=== PATIENT | female | born 1955 | race Caucasian/White ===

== ENCOUNTER 2019-04-26 18:35 | Inpatient (IN) | payer MEDICARE, BC ==
[~2019-04-26] VITALS: Ht 154.9 cm; Wt 76.1 kg
[~2019-04-26 18:35] MED LIST: ALENDRONATE SOD10 MG PO; AMBIEN5 MG PO; DIOVAN160 MG PO; K-DUR20 MEQ PO; URSO250 MG PO
[2019-04-26 19:20] LABS: BASOPHILS 0.9 % (0-2); EOSINOPHILS 3.1 % (0-7); HEMATOCRIT 32.3 % (36.0-48.0); HEMOGLOBIN 10.5 g/dL (12-16); IMMATURE GRANULOCYTES 1.5 % (0-5); LYMPHOCYTES 14.6 % (15-50); MCH 30.9 pg (26.0-34.0); MCHC 32.5 g/dL (31.0-37.0); MEAN PLATELET VOLUME 10.2 fL (7.4-10.4); MONOCYTES 10.3 % (2-11); NEUTROPHILS 69.6 % (40-80); PLATELET COUNT 154 10x3/uL (130-400); RDW 18.6 % (11.5-14.5); WBC 8.8 10x3/uL (4.8-10.8)
[2019-04-26 19:31] LABS: INR 1.35 (0.85-1.17); PROTIME 16.6 SECONDS (11.6-15.0)
[2019-04-26 19:35] LABS: ANION GAP 15.2 mmol/L (8-16); CALCIUM 9.2 mg/dL (8.5-10.1); CARBON DIOXIDE 20.3 mmol/L (21.0-32.0); CREATININE - SERUM 1.1 mg/dL (0.6-1.3); POTASSIUM - SERUM 3.5 mmol/L (3.5-5.1)
[2019-04-26 19:56] LABS: ALBUMIN 1.9 g/dL (3.4-5.0); BILIRUBIN - TOTAL 4.86 mg/dL (0.2-1.3); MAGNESIUM - SERUM 1.8 mg/dL (1.8-2.4); PROTEIN - SERUM 6.4 g/dL (6.4-8.2); THYROID STIMULATING HORMONE 5.63 uIU/mL (0.36-3.74)
[2019-04-26 20:07] LABS: TROPONIN-I 0.197 ng/mL (0.000-0.060)
[2019-04-26 20:16] VITALS: BP 156/76
--- NOTE | 2019-04-26 20:34 | NUR ---
CONTACT MADE WITH [facility] TRANSFER LINE, FACE SHEET FAXED TO [phone]. [facility] TO CALL BACK WITH ACCEPTING PHYSICIAN
[2019-04-26 21:13] VITALS: BP 147/66
[2019-04-26 21:27] VITALS: BP 147/66
--- NOTE | 2019-04-26 21:34 | NUR ---
[facility] HAS DECLINED TO ACCEPT PATIENT A TRANSFER, SPOKE WITH PATIENT AND SHE AGREES TO ICU ADMISSION AT THIS FACILITY. FAMILY AT BEDSIDE, NAD NOTED.
--- NOTE | 2019-04-26 21:55 | NUR ---
PATIENT VOID 400 ML TO BSC
[2019-04-26 22:32] VITALS: BP 149/72
--- NOTE | 2019-04-26 22:45 | NUR ---
PATIENT VOID 550 ML TO BSC
[2019-04-26 22:49] LABS: BILIRUBIN NEGATIVE (NEGATIVE); GLUCOSE NEGATIVE (NEGATIVE); KETONE NEGATIVE (NEGATIVE); NITRITE NEGATIVE (NEGATIVE); UROBILINOGEN NORMAL (NORMAL)
--- NOTE | 2019-04-26 22:50 | NUR ---
PATIENT NOTIFIED BY DR. CHANG THAT THERE ARE NO MEDICAL OR ICU BEDS AND SHE WILL BE HELD IN THE ED UNTIL A BED BECOMES AVAILABLE. REASSURE THAT CONSULTING PHYSICIANS WILL SEE HER IN THE ER IN THE MORNING IF NO BED IS AVAILABLE WHEN THEY ROUND. PATIENT PROVIDED SANDWHICH BOX AND DRINK. WARM BLANKET PROVIDED AND FAMILY AT BEDSIDE.
[2019-04-26 23:08] VITALS: BP 145/70
--- NOTE | 2019-04-26 23:10 | NUR ---
PATIENT VOID 600 ML TO BSC
[2019-04-27] VITALS (7 sets, daily range): BP systolic 108–178; BP diastolic 44–89; BMI 35.6
--- NOTE | 2019-04-27 00:35 | NUR ---
PATIENT VOID 400 ML TO BSC
--- NOTE | 2019-04-27 00:47 | NUR ---
PATIENTS SPOUSE BROUGHT PATIENTS AMPICILLIN HOME INFUSION REFILL BAG TO THE NURSES STATION. PLACED IN MEDICATION FRIDGE. CHARGE NURSE NOTIFIED.
--- NOTE | 2019-04-27 02:05 | NUR ---
PATIENT VOID 400 ML TO BSC.
--- NOTE | 2019-04-27 03:38 | NUR ---
REPORT TO HOLLIE RN WHO ASSUMES CARE AT THIS TIME, PATIENT IS AWAITING INPATIENT BED ASSIGNEMENT. NAD NOTED. VSS
--- NOTE | 2019-04-27 07:15 | NUR ---
ASSUMED CARE OF PT AT THIS TIME. BEDSIDE REPORT COMPLETE. PT LAYING IN BED. NO S/S OF DISTRESS NOTED. DENIES NEEDS AT THIS TIME.
[2019-04-27] MEDS ORDERED: URSO250 MG PO (14:34)
[2019-04-27 14:35] LABS: EOSINOPHILS 3.9 % (0-7); HEMATOCRIT 30.2 % (36.0-48.0); HEMOGLOBIN 9.7 g/dL (12-16); IMMATURE GRANULOCYTES 1.1 % (0-5); LYMPHOCYTES 17.6 % (15-50); MCH 30.8 pg (26.0-34.0); MCHC 32.1 g/dL (31.0-37.0); MCV 95.9 fL (80.0-100.0); MEAN PLATELET VOLUME 10.3 fL (7.4-10.4); MONOCYTES 8.4 % (2-11); PLATELET COUNT 148 10x3/uL (130-400); RBC 3.15 10x6/uL (4.00-5.40); RDW 19.2 % (11.5-14.5); WBC 7.2 10x3/uL (4.8-10.8)
[2019-04-27 14:40] LABS: INR 1.51 (0.85-1.17)
[2019-04-27 14:49] LABS: ALBUMIN 1.7 g/dL (3.4-5.0); ANION GAP 13.8 mmol/L (8-16); BILIRUBIN - TOTAL 3.83 mg/dL (0.2-1.3); CALCIUM 8.6 mg/dL (8.5-10.1); CARBON DIOXIDE 21.4 mmol/L (21.0-32.0); CREATININE - SERUM 1.2 mg/dL (0.6-1.3); POTASSIUM - SERUM 3.2 mmol/L (3.5-5.1)
--- NOTE | 2019-04-27 15:07 | NUR ---
WHEN GOING OVER PT'S MEDICATIONS PT INFORMED THIS NURSE THAT SHE WAS TAKING VALSARTAN 160MG DAILY. ONCE VALSARTAN WAS ORDERED WENT AND GAVE PT 160MG OF VALSARTAN AND AFTER PT HAD TAKEN THE MEDICATION PT ASKED NURSE WHAT DOSE SHE RECEIVED, TOLD PT THAT I GAVE HER 160MG OF VALSARTAN. THEN PT STATED I AM SUPPOSE TO TAKE 250MG TO EQUAL A DOSE OF 750MG. INFORMED PT THAT I WOULD UPDATED IT ON HER HOME MEDICATIONS AND THEN HAVE THE DOCTOR ORDER IT. PHARMACY CALLED THIS NURSE AND WAS INFORMED THAT MAX DOSE FOR VALSARTAN DAILY IS 320MG. WENT AND ASKED PT AND AGAIN IF THEY WERE SURE SHE TOOK 750MG OF VALSARTAN AND THEN PT STATED "OH I DON'T TAKE VALSARTAN ANYMORE, I TAKE 750MG OF URSODIOL TID". WENT OVER PT'S HOME MEDICAITONS AGAIN, PT AND WERE GIVING THIS NURSE TWO DIFFERENT DOSAGES FOR THE THE URSODIOL AND NAMES OF THE MEDICAITONS PT WAS TAKING. INFORMED PT AND THAT I NEEDEED AND UPDATED MEDICATION LIST OF THE CURRENT MEDICAITONS THAT PT IS TAKING AT HOME. PT THEN STATED THAT SHE TAKES AMBIEN 5MG QHS PRN, URSODIOL 750MG TID AND POTASSIUM CHLORIDE 40MEQ PO DAILY. THEN ERUM FROM PHARMACY CALLED AND ASKED IF HAS HER HOME DOSE OF URSODIOL. ASKED PT IF SHE HAD HER URSODIOL WITH HER BECAUSE PHARMACY DOES NOT HAVE 250TAB AND PT STATED THAT SHE DOES NOT HAVE IT HERE BUT HER CAN GET IT FOR HER AND WILL START TAKING HER OWN HOME DOSE ONCE LABELED BY PHARMACY.
--- NOTE | 2019-04-27 16:34 | NUR ---
NEW BAG OF AMPICILLIN HUNG AT THIS TIME, TO INFUSE TO LT MIDLINE. PT DENIES ANY NEEDS AT THIS TIME. CALL LIGHT IN REACH,NAD NOTED,W ILL CONTINUE TO MONITOR.
--- NOTE | 2019-04-27 19:49 | NUR ---
ASSESSMENT COMPLETE, PT A&O. SITTING UP IN BED WATCHING TV. RESPERATIONS EVEN ON RA. PIV TO RIGHT HAND SL. SITE CLEAN AND DRY. LEFT ARM MIDLINE WITH WITH PTS HOME DOSE OF AMPICILLIN INFUSING. AT BED SIDE, BED LOW, CL IN REACH, PT DENIES PAIN OR NEEDS.
--- NOTE | 2019-04-28 01:42 | NUR ---
I have reviewed this patient and I concur with the Shift Assessment completed by the Licensed Practical Nurse today this shift.
[2019-04-28 04:00] VITALS: BP 144/76
--- NOTE | 2019-04-28 04:23 | NUR ---
RESTING WITH EYES CLOSED, RESPERATIONS EVEN, NO S/S DISTRESS NOTED.
[2019-04-28 06:00] LABS: BASOPHILS 0.7 % (0-2); EOSINOPHILS 5.6 % (0-7); HEMATOCRIT 28.5 % (36.0-48.0); IMMATURE GRANULOCYTES 0.9 % (0-5); LYMPHOCYTES 18.2 % (15-50); MCH 30.5 pg (26.0-34.0); MCHC 31.6 g/dL (31.0-37.0); MCV 96.6 fL (80.0-100.0); MEAN PLATELET VOLUME 9.7 fL (7.4-10.4); MONOCYTES 11.5 % (2-11); NEUTROPHILS 63.1 % (40-80); RBC 2.95 10x6/uL (4.00-5.40); RDW 19.5 % (11.5-14.5); WBC 5.7 10x3/uL (4.8-10.8)
[2019-04-28 06:15] LABS: PLATELET COUNT 107 10x3/uL (130-400)
[2019-04-28 06:22] LABS: ALBUMIN 1.4 g/dL (3.4-5.0); ANION GAP 9.2 mmol/L (8-16); BILIRUBIN - TOTAL 3.16 mg/dL (0.2-1.3); CALCIUM 8.3 mg/dL (8.5-10.1); CARBON DIOXIDE 23.1 mmol/L (21.0-32.0); CREATININE - SERUM 1.2 mg/dL (0.6-1.3); POTASSIUM - SERUM 3.3 mmol/L (3.5-5.1); PROTEIN - SERUM 5.5 g/dL (6.4-8.2)
[2019-04-28 14:35] VITALS: BP 123/68
--- NOTE | 2019-04-28 16:48 | CN ---
PATIENT NAME:MARYLOU SOFIA MEDICAL RECORD: [id number] : 53 LOCATION:D. D.2133 ADMIT DATE: 04/27/19 ACCOUNT: [id number] CONSULTING PHYSICIAN: CHARO TEAGUE MD REFERRING PHYSICIAN: BESSIE CONTI MD DATE OF CONSULTATION: 04/27/2019 DIAGNOSES: 1. Elevated troponin. 2. Lower extremity edema. 3. Hypertension. HISTORY OF PRESENT ILLNESS: Mrs. Sofia has a complicated recent history. It appears that she had a hysterectomy after that she got an infection, which progressed to meningitis. She was in the hospital at [facility] being treated for this. She is on IV home antibiotics. She developed lower extremity edema. They think actually this is from the hysterectomy, but she does have an elevated troponin. She has had absolutely no chest pain, no shortness of breath. Her EKG is normal. PHYSICAL EXAMINATION: CONSTITUTIONAL/GENERAL APPEARANCE: Well nourished, well developed, appears stated age. EYES: Lids and conjunctivae noninjected. No discharge. No pallor. ENT: Lips within normal limit. No cyanosis. No pallor. NECK: Carotid arteries, bilateral normal upstroke. No bruits. No thrills. No jugular venous pressure or distention. CERVICAL LYMPH NODES: Nontender. Nonenlarged. THYROID: Not enlarged. No nodules. CARDIOVASCULAR: Precordial exam, nondisplaced. No heaves or pericardial thrills. Rate and rhythm, regular. Heart sounds, normal S1, normal S2. No S3, no gallop, no rub. Systolic murmur, not heard. Diastolic murmur, not heard. RESPIRATORY: Respiratory effort, unlabored. Normal curvature. No thoracic deformity. No chest wall tenderness. Percussion, resonant. Auscultation, clear. No wheezes, no rales, no rhonchi. ABDOMEN: Soft, nondistended, nontender. No abdominal pain, no vomiting and normal appetite. MUSCULOSKELETAL: No joint tenderness, normal gait, normal tone. SKIN: Warm and dry. OVERALL IMPRESSION: Elevated troponin with a history of hypertension. I do not think that this is acute coronary syndrome with no chest pain, no EKG changes. We will get an echocardiogram to assess overall LV function and wall motion abnormalities. Further care depends upon the findings of the echo. TRANSINT:[id number] Voice Confirmation ID: [id number] DOCUMENT ID: [id number] CONSULT REPORT [id number] MARYLOU SOFIA JEFFREY MD at 1648 CC: [id number] DICTATION DATE: 04/27/19 1131 PASSENGER CAR CLEANING SUPERVISOR: 04/27/[address] [facility] [address] [id number]
--- NOTE | 2019-04-28 16:48 | EC ---
PATIENT:MARYLOU MURRAY DATE OF SERVICE: 04/27/19 SEX: F MEDICAL RECORD: [id number] DATE OF : [birth year] LOCATION:D.M2 D.213 AGE OF PATIENT: 64 ADMISSION DATE: 04/27/19 REFERRING PHYSICIAN: INTERPRETING PHYSICIAN: CHARO BOSS MD ECHOCARDIOGRAM REPORT ECHO CHARGES 4 ECHO COMPLETE Date: 04/27/19 CLINICAL DIAGNOSIS: CHF ECHOCARDIOGRAPHIC MEASUREMENTS (adult normal given) AC root (d.<3.7cm) 2.7 cm LV Septum d (<1.2 cm> 1.2 cm Valve Excursion 1.5 cm LV Septum (systole) 1.8 cm Left Atria (s.<4.0cm> 4.7 cm LVPW d(<1.2cm) 1.2 cm RV (d.<2.3cm) 2.4 cm LVPW (sytole) 1.9 cm LV diastole(<5.6CM) 5.3 cm MV E-F(>70mm/sec) cm LV systole 2.8 cm LVOT Diameter 1.6 cm MV exc.(>10mm) cm Est.ejection fraction (50-75%) % DOPPLER: LVIT cm/sec A 124 cm/sec E 189 cm/sec LA cm/sec RVSP 65.1 mmHg LVOT 140 cm/sec AOP1/2T m/s Asc. Ao 336 cm/sec RVOT 90.0 cm/sec RA cm/sec PA 125 cm/sec AV Gradient Peak 45.2 mmHg AV Mean 19.0 mmHg AV Area 0.8 cm MV Gradient Peak 20.2 mmHg MV Mean 8.3 mmHg MV Area cm COMMENTS: Parts Counter Representative: 1 FABIO WELCHDSOE Image Editor: 1 Dr. Boss TAPE# PACS Pericardial Effusion N DATE OF SERVICE: 04/27/2019 PROCEDURE: Echocardiogram FINDINGS: 1. Left ventricular chamber size is within normal limits. Left ventricular systolic function is normal at 65%. 2. Left atrium is enlarged at 4.7 cm. Right atrium and right ventricular chamber sizes are as well mildly dilated. 3. Valvular structures: Aortic valve demonstrates mild calcific aortic ECHOCARDIOGRAM REPORT [id number] MARYLOU MURRAY stenosis, valve area calculates to 1.0 cm-squared with gradient of 45 mm across the valve. The remaining valvular structures have normal structure and motion. 4. Doppler interrogation elsewise reveals moderate to severe mitral regurgitation, moderate tricuspid regurgitation, no other valvular insufficiency or stenosis. Pulmonary systolic pressure is elevated, estimated 65 mmHg. 5. No evidence of pericardial effusion or left ventricular thrombus. TRANSINT:[id number] Voice Confirmation ID: [id number] DOCUMENT ID: [id number] CHARO BOSS MD at 1648 CC: [id number] DICTATION DATE: 04/28/19737 FIELD CARE MANAGER: 04/28/19 0940 ADM IN [facility] [address] [id number]
--- NOTE | 2019-04-28 16:53 | NUR ---
Rehab Note- Acute Inpatient Rehab prescreen order received. The patient has had a PT Eval that stated too functional for skilled need. THe patient would have to require 2 therapies 3hrs/day for acute inpatient rehab stay- that could be OT and ST if feel the patient needs these evaluations for possible therapy needs. Will follow at this time. Thank you for this referral! Karen Sumner RN Clinical Liaison, [facility] Rehab
[2019-04-28 20:00] VITALS: BP 111/57
--- NOTE | 2019-04-28 23:29 | NUR ---
PT REFUSED TO WEAR TELEMETRY, TELEMETRY BOX RETURNED TO TECHNICAL DEVELOPER.
--- NOTE | 2019-04-29 00:38 | NUR ---
RESTING WITH EYES CLOSED, RESPERATIONS EVEN, NO S/S DISTRESS NOTED.
[2019-04-29 02:46] VITALS: BP 138/62
--- NOTE | 2019-04-29 03:34 | NUR ---
I have reviewed this patient and I concur with the Shift Assessment completed by the Licensed Practical Nurse today this shift.
[2019-04-29 04:00] VITALS: BP 106/67
[2019-04-29 06:45] LABS: BASOPHILS 0.8 % (0-2); EOSINOPHILS 5.5 % (0-7); HEMATOCRIT 27.3 % (36.0-48.0); HEMOGLOBIN 8.7 g/dL (12-16); IMMATURE GRANULOCYTES 0.6 % (0-5); LYMPHOCYTES 17.7 % (15-50); MCH 30.7 pg (26.0-34.0); MCHC 31.9 g/dL (31.0-37.0); MCV 96.5 fL (80.0-100.0); MEAN PLATELET VOLUME 10.5 fL (7.4-10.4); MONOCYTES 10.6 % (2-11); NEUTROPHILS 64.8 % (40-80); PLATELET COUNT 108 10x3/uL (130-400); RBC 2.83 10x6/uL (4.00-5.40); RDW 19.6 % (11.5-14.5); WBC 6.4 10x3/uL (4.8-10.8)
[2019-04-29 07:08] LABS: ALBUMIN 1.3 g/dL (3.4-5.0); ANION GAP 12.1 mmol/L (8-16); BILIRUBIN - TOTAL 2.9 mg/dL (0.2-1.3); CARBON DIOXIDE 24.9 mmol/L (21.0-32.0); CREATININE - SERUM 1.3 mg/dL (0.6-1.3); PROTEIN - SERUM 5.1 g/dL (6.4-8.2)
[2019-04-29 10:06] VITALS: BP 117/52
[2019-04-29 12:23] VITALS: Ht 154.9 cm; Wt 76.1 kg
[2019-04-29 14:01] VITALS: BP 107/48
--- NOTE | 2019-04-29 14:41 | NUR ---
OT NOTE: MET WITH FAMILY WHO REPORTS THAT THEY ARE CURRENTLY IN THE PROCESS OF REMODELING THEIR HOME. THEY REPORT THAT PT HAS HAD EXTENSIVE MEDICAL COMPLICATIONS OVER THE LAST MONTH. SHE HAS BEEN HOSPITALIZED FOR WEEKS AND IS CURRENTLY VERY DECONDITIONED COMPARED TO HER PLOF. PT WAS COMPLETELY INDEP AND WORKING 2 JOBS PRIOR TO ADMISSION. SHES CURRENTLY WEAK, ABLE TO AMB APPROX 75-100 FT WITH WALKER.. UNSTEADY GAIT WITHOUT WALKER. PT WOULD BENEFIT FROM SKILLED THERAPY FOR SEVERAL WEEKS TO ALLOW PT TO RETURN TO PLOF. THANK YOU, MAKAYLA NICHOLSON, OTR/L [phone]
--- NOTE | 2019-04-29 15:40 | MORECARE ---
CASE MANAGEMENT DISCHARGE SUMMARY PATIENT: MARYLOU MURRAY UNIT: [id number] ADM DATE: 04/27/19 AGE: 64 : [birth year] SEX: F ROOM/BED: D.2133 AUTHOR: GOMEZ SHERIFF PHYSICIAN: REFERRING PHYSICIAN: BESSIE CONTI MD DATE OF SERVICE: 04/29/19 Discharge Plan Patient Name: MARYLOU MURRAY Facility: [facility]:[place] : 1955 Planned Disposition: Snf Facility Anticipated Discharge Date: Discharge Date: Expected LOS: Initial Reviewer: [email or web address] Initial Review Date: 04/29/2019 Generated: 04/29/19 4:40 pm DCPIA - Discharge Planning Initial Assessment Updated by [email or web address]: Naomie Caballero on 04/29/19 3:39 pm * Is the patient Alert and Oriented? Yes * Preadmission Environment Home with Family * Additional services required to return to the preadmission environment? Yes * Can the patient safely return to the preadmission environment? Yes * Has this patient been hospitalized within the prior 30 days at any hospital? Yes Patient Name: MARYLOU MURRAY Page [phone] at 1540 All edits/amendments must be made on the electronic document DICTATION DATE: 04/29/19 1540 CEILING INSTALLER: BIENVENIDO 04/29/19 1540 RPT#: [id number] DC DATE: STATUS: ADM IN [facility] [address] [place] [address] END OF REPORT
--- NOTE | 2019-04-29 15:49 | MORECARE ---
CASE MANAGEMENT DISCHARGE SUMMARY PATIENT: MARYLOU MURRAY UNIT: [id number] ADM DATE: 04/27/19 AGE: 64 : 53 SEX: F ROOM/BED: D.2133 AUTHOR: GOMEZ SHERIFF PHYSICIAN: REFERRING PHYSICIAN: BESSIE CONTI MD DATE OF SERVICE: 04/29/19 Discharge Plan Patient Name: MARYLOU MURRAY Facility: [facility]:[place] : 1955 Planned Disposition: Custodial Facility Anticipated Discharge Date: Discharge Date: Expected LOS: Initial Reviewer: [email or web address] Initial Review Date: 04/29/2019 Generated: 04/29/19 4:48 pm Comments DCP- Discharge Planning Updated by [email or web address]: Naomie Caballero on 04/29/19 2:[address] Patient Name: MARYLOU MURRAY Admission Status: ER Accout number: [id number] Admission Date: 04-27-2019 : 1955 Admission Diagnosis:HYPERKALEMIA Attending: BESSIE CONTI Current LOS: 2 Anticipated DC Date: Planned Disposition: Custodial Facility Primary Insurance: MEDICARE A & B Discharge Planning Comments: CM MET WITH PATIENT AFTER OBTAINING VERBAL CONSENT. PATIENT WANTS TO GO TO [facility]. JOVITA SIGNED AND I WILL FAX REFERAL TO [facility]. IMM SIGNED. CM TO FOLLOW AND ASSIST NEEDED. Lathe Hand: Naomie Caballero DCPIA - Discharge Planning Initial Assessment Updated by [email or web address]: Naomie Caballero on 04/29/19 3:39 pm * Is the patient Alert and Oriented? Yes * Preadmission Environment Home with Family * Additional services required to return to the preadmission environment? Yes * Can the patient safely return to the preadmission environment? Yes * Has this patient been hospitalized within the prior 30 days at any hospital? Yes External Providers External Provider: [facility] Next Contact Date: Service Request Date: Service Type: Resolution: Reviewer: Comments: Coverage Notice Reviewer: [email or web address] Arti Caballero Notice Issued Date-Time: 04/29/2019 15:44 Notice Type: IM Discharge Notice Notice Delivered To: Patient Relationship to Patient: Webmethods Architect Name: Delivery Method: HAND - Hand Delivered Elizabeth Days: Prior Verbal Notification: Recipient Understood Notice: Yes Recipient Signature: Yes Med Rec Note Co-signed by Attending: Coverage Notice Comment: Reviewer: [id number] Arti Caballero Notice Issued Date-Time: 04/29/2019 15:44 Notice Type: Patient Choice Letter Notice Delivered To: Relationship to Patient: Webmethods Architect Name: Delivery Method: HAND - Hand Delivered Elizabeth Days: Prior Verbal Notification: Recipient Understood Notice: Yes Recipient Signature: Yes Med Rec Note Co-signed by Attending: Coverage Notice Comment: [facility] Last DP export: 04/29/19 2:40 p Patient Name: MARYLOU MURRAY Page [phone] at 1549 All edits/amendments must be made on the electronic document DICTATION DATE: 04/29/19 1548 LANG INTERPRETER: BIENVENIDO 04/29/19 1548 RPT#: [id number] DC DATE: STATUS: ADM IN [facility] [address] [place] [address] END OF REPORT
[2019-04-29 18:09] VITALS: BP 119/48
--- NOTE | 2019-04-29 19:30 | NUR ---
RECEIVED REPORT, WILL ASSUME CARE OF PT, ASKING FOR SHEETS SO SHE COULD CHANGE HER BED, I CHANGED THE BED, ASKING ABOUT LABS IN AM, ASKING FOR DIET IN AM, BED IS LOW, SRX2, CALL LIGHT IN REACH, WILL CONTINUE PLAN OF CARE, AT BEDSIDE
[2019-04-29 20:00] VITALS: BP 127/53
[2019-04-30] VITALS: BP 116/52
[2019-04-30 04:00] VITALS: BP 126/73
--- NOTE | 2019-04-30 05:00 | NUR ---
I have reviewed this patient and I concur with the Shift Assessment completed by the Licensed Practical Nurse today this shift.
[2019-04-30 05:30] LABS: BASOPHILS 0.8 % (0-2); HEMATOCRIT 26.6 % (36.0-48.0); HEMOGLOBIN 8.5 g/dL (12-16); IMMATURE GRANULOCYTES 0.5 % (0-5); LYMPHOCYTES 18.6 % (15-50); MCH 30.8 pg (26.0-34.0); MCV 96.4 fL (80.0-100.0); MEAN PLATELET VOLUME 9.6 fL (7.4-10.4); MONOCYTES 10.5 % (2-11); NEUTROPHILS 62.6 % (40-80); PLATELET COUNT 94 10x3/uL (130-400); PLATELET ESTIMATE DECREASED; RBC 2.76 10x6/uL (4.00-5.40); RDW 19.9 % (11.5-14.5); WBC 6.6 10x3/uL (4.8-10.8)
[2019-04-30 05:47] LABS: ALBUMIN 1.3 g/dL (3.4-5.0); ANION GAP 8.9 mmol/L (8-16); BILIRUBIN - TOTAL 2.5 mg/dL (0.2-1.3); CALCIUM 7.8 mg/dL (8.5-10.1); CARBON DIOXIDE 28.7 mmol/L (21.0-32.0); CREATININE - SERUM 1.2 mg/dL (0.6-1.3); PROTEIN - SERUM 5.1 g/dL (6.4-8.2)
[2019-04-30 05:58] LABS: POTASSIUM - SERUM 2.6 mmol/L (3.5-5.1)
--- NOTE | 2019-04-30 07:00 | NUR ---
RECEIVED REPORT. ASSUMED CARE OF PATIENT. RESTING IN BED WITH EYES OPEN. RESP EVEN AND UNLABORED. CALL LIGHT WITHIN REACH. PATIENT SPOUSE AT BEDSIDE. PATIENT REQUESTING ICE WATER AT THIS TIME. NO DISTRESS.
--- NOTE | 2019-04-30 07:15 | NUR ---
FRESH ICE WATER PROVIDED REQUESTED. NO DISTRESS.
--- NOTE | 2019-04-30 07:30 | NUR ---
WARM WET WIPES PROVIDED REQUESTED.
--- NOTE | 2019-04-30 08:43 | NUR ---
2ND DOSE OF K+ SUPPLEMENT ADMINISTERED AT THIS TIME. NO DISTRESS. PICC SALINE LOCKED AT THIS TIME.
[2019-04-30 10:17] VITALS: BP 114/63
--- NOTE | 2019-04-30 12:35 | NUR ---
NEW SPANDAGE APPLIED TO LEFT UPPER ARM TO SUPPORT PIGTAIL OF PICC LINE.
[2019-04-30 13:16] VITALS: BP 129/64
--- NOTE | 2019-04-30 15:35 | MORECARE ---
CASE MANAGEMENT DISCHARGE SUMMARY PATIENT: MARYLOU MURRAY UNIT: [id number] ADM DATE: 04/27/19 AGE: 64 : 53 SEX: F ROOM/BED: D.2133 AUTHOR: GOMEZ SHERIFF PHYSICIAN: REFERRING PHYSICIAN: BESSIE CONTI MD DATE OF SERVICE: 04/30/19 Discharge Plan Patient Name: MARYLOU MURRAY Facility: [facility]:[place] : 1955 Planned Disposition: Senior Living Facility Anticipated Discharge Date: Discharge Date: Expected LOS: Initial Reviewer: [email or web address] Initial Review Date: 04/29/2019 Generated: 04/30/19 4:34 pm Comments DCP- Discharge Planning Updated by [email or web address]: Naomie Caballero on 04/30/19 2:[address] Patient Name: MARYLOU MURRAY Admission Status: ER Accout number: [id number] Admission Date: 04-27-2019 : 1955 Admission Diagnosis:HYPERKALEMIA Attending: BESSIE CONTI Current LOS: 3 Anticipated DC Date: Planned Disposition: Senior Living Facility Primary Insurance: MEDICARE A & B Discharge Planning Comments: CM SPOKE WITH [facility], THEY VERIFIED RECEIPT OF THE REFERRAL AND I AM WAITING CALL BACK IF SHE IS ACCEPTED OR NOT. Publisher Assistant: Naomie Caballero DCP- Discharge Planning Updated by [email or web address]: Naomie Caballero on 04/29/19 2:[address] Patient Name: MARYLOU MURRAY Admission Status: ER Accout number: [id number] Admission Date: 04-27-2019 : 1955 Admission Diagnosis:HYPERKALEMIA Attending: BESSIE CONTI Current LOS: 2 Anticipated DC Date: Planned Disposition: Senior Living Facility Primary Insurance: MEDICARE A & B Discharge Planning Comments: CM MET WITH PATIENT AFTER OBTAINING VERBAL CONSENT. PATIENT WANTS TO GO TO [facility]. JOVITA SIGNED AND I WILL FAX REFERAL TO [facility]. IMM SIGNED. CM TO FOLLOW AND ASSIST NEEDED. Publisher Assistant: Naomie Caballero DCPIA - Discharge Planning Initial Assessment Updated by [email or web address]: Naomie Caballero on 04/29/19 3:39 pm * Is the patient Alert and Oriented? Yes * Preadmission Environment Home with Family * Additional services required to return to the preadmission environment? Yes * Can the patient safely return to the preadmission environment? Yes * Has this patient been hospitalized within the prior 30 days at any hospital? Yes Coverage Notice Reviewer: [email or web address] Arti Caballero Notice Issued Date-Time: 04/29/2019 15:44 Notice Type: IM Discharge Notice Notice Delivered To: Patient Relationship to Patient: Immigration Law Specialist Name: Delivery Method: HAND - Hand Delivered Elizabeth Days: Prior Verbal Notification: Recipient Understood Notice: Yes Recipient Signature: Yes Med Rec Note Co-signed by Attending: Coverage Notice Comment: Reviewer: [email or web address] Arti Caballero Notice Issued Date-Time: 04/29/2019 15:44 Notice Type: Patient Choice Letter Notice Delivered To: Relationship to Patient: Immigration Law Specialist Name: Delivery Method: HAND - Hand Delivered Elizabeth Days: Prior Verbal Notification: Recipient Understood Notice: Yes Recipient Signature: Yes Med Rec Note Co-signed by Attending: Coverage Notice Comment: [facility] Last DP export: 04/29/19 2:49 p Patient Name: MARYLOU MURRAY Page [phone] at 1535 All edits/amendments must be made on the electronic document DICTATION DATE: 04/30/191533 ASSEMBLY INSPECTOR HELPER: BIENVENIDO 04/30/191533 RPT#: [id number] DC DATE: STATUS: ADM IN [facility] [address] [place] [address] END OF REPORT
--- NOTE | 2019-04-30 16:29 | NUR ---
ELECTROLYTE REPLACEMENT PROTOCOL INITIATED AT THIS TIME FOR MAGNESIUM AND POTASSIUM. POTASSIUM ORDERED FOR REDRAW IN 4 HOURS. PATIENT OOB TO CHAIR AT BEDSIDE. NO DISTRESS.
[2019-04-30 16:37] VITALS: BP 126/57
--- NOTE | 2019-04-30 17:00 | NUR ---
PATIENT OOB AMBULATING WITH HER SPOUSE IN HALLWAY AFTER MUCH ENCOURAGMENT. PATIENT SEEMS TO FEEL A LITTEL BETTER AFTER GETTING OUT AND WALKING. PATIENT SITTING TO CHAIR AT BEDSIDE CONSUMING PM MEAL AT THIS TIME. NO DISTRESS.
--- NOTE | 2019-04-30 19:14 | NUR ---
I have reviewed this patient and I concur with the Shift Assessment completed by the Licensed Practical Nurse today this shift.
--- NOTE | 2019-04-30 19:20 | NUR ---
RECEIVED REPORT, WILL ASSUME CARE OF PT, EATING ICECREAM AND GRAMCRACKERS, DENIES ANY NEEDS, BED IS LOW, SRX2, WILL CONTINUE PLAN OF CARE
[2019-04-30 20:00] VITALS: BP 117/53
[2019-05-01] VITALS: BP 107/51
--- NOTE | 2019-05-01 01:43 | NUR ---
I have reviewed this patient and I concur with the Shift Assessment completed by the Licensed Practical Nurse today this shift.
[2019-05-01 04:00] VITALS: BP 110/53
[2019-05-01 06:04] LABS: BASOPHILS 0.6 % (0-2); EOSINOPHILS 6.4 % (0-7); HEMATOCRIT 29.7 % (36.0-48.0); HEMOGLOBIN 9.5 g/dL (12-16); IMMATURE GRANULOCYTES 0.8 % (0-5); LYMPHOCYTES 20.6 % (15-50); MCH 30.8 pg (26.0-34.0); MCV 96.4 fL (80.0-100.0); MEAN PLATELET VOLUME 9.9 fL (7.4-10.4); MONOCYTES 8.3 % (2-11); NEUTROPHILS 63.3 % (40-80); RBC 3.08 10x6/uL (4.00-5.40); RDW 19.9 % (11.5-14.5)
[2019-05-01 06:05] LABS: PLATELET COUNT 123 10x3/uL (130-400); WBC 8.8 10x3/uL (4.8-10.8)
[2019-05-01 06:39] LABS: ALBUMIN 1.5 g/dL (3.4-5.0); ANION GAP 14.1 mmol/L (8-16); BILIRUBIN - TOTAL 2.88 mg/dL (0.2-1.3); CALCIUM 7.9 mg/dL (8.5-10.1); CARBON DIOXIDE 24.5 mmol/L (21.0-32.0); CREATININE - SERUM 1.2 mg/dL (0.6-1.3); POTASSIUM - SERUM 3.6 mmol/L (3.5-5.1); PROTEIN - SERUM 5.6 g/dL (6.4-8.2)
--- NOTE | 2019-05-01 07:00 | NUR ---
RECEIVED REPORT. ASSUMED CARE OF PATIENT. PATIENT RESTING IN BED WITH EYES CLOSED. EASILY AROUSED. NO DISTRESS. IV ABX INFUSING ORDERED. CALL LIGHT WITHIN REACH. NO DISTRESS. PATIENT SPOUSE AT BEDSIDE WITH EYES CLOSED.
--- NOTE | 2019-05-01 08:00 | NUR ---
CALLED AND SPOKE TO DEBORAH IN PHARMACY REQUESTING THAT MEGACE BE CHANGED TO THE TABLET FORM PATIENT STATES SHE WILL TAKE THE TABLET FORM BUT CANNOT HANDLE THE LIQUID DUE TO THE TAST. THANKED DEBORAH.
[2019-05-01 10:56] VITALS: BP 111/55
--- NOTE | 2019-05-01 11:46 | NUR ---
MAGNESIUM WAS TREATED YESTERDAY ON PREVIOUS SHIFTS FOR MAG LEVEL OF 1.5. NEW ORDER FOR IV MAG HAS BEEN RECEIVED BUT MAGNESIUM WAS NOT CHECKED THIS AM. WILL CHECK MAGNESIUM PRIOR TO HANGING 2GM IV ORDERED PER ELECTROLYTE PROTOCOL.
--- NOTE | 2019-05-01 13:03 | NUR ---
MAGNESIUM INFUSING VIA IV ORDERED. MAG LEVEL CHECKED AND REMAINS 1.5
--- NOTE | 2019-05-01 13:51 | NUR ---
OT NOTE: PT COMPLETED ALD MOB WITH MIN/MOD A X2. PT COMPLETED SIT TO STAND WITH CGA/MIN A. PT EXHIBITED DECREASED AX TOLERANCE. PT COMPLETED FACE WASHING WITH SETUP. PT FAMILY ANXIOUS THAT PT RECEIVE THERAPY SERVICES. PT EXHIBITED POOR AX TOLERANCE. [phone] THANK YOU,CATHLENE MANCILLA
--- NOTE | 2019-05-01 13:54 | NUR ---
OT NOTE:( ADDENDUM) NOTE WRITTIN ON 05/01/19 WAS FOR DOS 04/29/19 SECONDARY TO LATE ENTERY. THANK YOU,CATHLEEN MANCILLA
[2019-05-01 14:31] VITALS: BP 105/44
--- NOTE | 2019-05-01 14:33 | NUR ---
PATIENT WITH MULTIPLE FAMILY AT BEDSIDE. NO DISTRESS. CALL LIGHT WITHIN REACH. NO DISTRESS.
--- NOTE | 2019-05-01 15:21 | NUR ---
NEW ORDER RECEIVED TO START MEGACE 40MG PO BID. MEGACE NEEDED TO KEEP APPETITE GOOD UNTIL ALBUMIN IMPROVES. ORDER INPUTTED INTO SYSTEM.
[2019-05-01 18:37] VITALS: BP 110/61
--- NOTE | 2019-05-01 19:30 | NUR ---
RECEIVED REPORT, WILL ASSUME CARE OF PT, SL-PICC, BORING MILL SET UP OPERATOR ASSISTING PT TO SHOWER, AT BEDSIDE, DENIES ANY NEEDS, WILL CONTINUE PLAN OF CARE
[2019-05-01 20:00] VITALS: BP 136/71
[2019-05-02] VITALS: BP 124/65
[2019-05-02 04:00] VITALS: BP 115/59
--- NOTE | 2019-05-02 04:00 | NUR ---
I have reviewed this patient and I concur with the Shift Assessment completed by the Licensed Practical Nurse today this shift.
[2019-05-02 05:55] LABS: BASOPHILS 0.4 % (0-2); EOSINOPHILS 5.8 % (0-7); HEMATOCRIT 25.9 % (36.0-48.0); HEMOGLOBIN 8.4 g/dL (12-16); IMMATURE GRANULOCYTES 0.9 % (0-5); LYMPHOCYTES 20.4 % (15-50); MCH 30.9 pg (26.0-34.0); MCHC 32.4 g/dL (31.0-37.0); MCV 95.2 fL (80.0-100.0); MEAN PLATELET VOLUME 10.1 fL (7.4-10.4); NEUTROPHILS 60.5 % (40-80); RBC 2.72 10x6/uL (4.00-5.40); RDW 20.2 % (11.5-14.5)
[2019-05-02 06:20] LABS: ALBUMIN 1.2 g/dL (3.4-5.0); ANION GAP 9.1 mmol/L (8-16); BILIRUBIN - TOTAL 2.56 mg/dL (0.2-1.3); CALCIUM 7.7 mg/dL (8.5-10.1); CARBON DIOXIDE 27.9 mmol/L (21.0-32.0); CREATININE - SERUM 1.3 mg/dL (0.6-1.3); MAGNESIUM - SERUM 1.7 mg/dL (1.8-2.4)
[2019-05-02 06:28] LABS: PLATELET COUNT 95 10x3/uL (130-400)
[2019-05-02 08:43] VITALS: BP 124/57
[2019-05-02 10:59] LABS: PLATELET ESTIMATE DECREASED
[2019-05-02 11:01] LABS: ANISOCYTOSIS OCC
[2019-05-02 12:16] VITALS: BP 112/47
--- NOTE | 2019-05-02 12:52 | NUR ---
PT AWAKE AND OREINTED, SITTING IN BED, AT BEDSIDE. PT HAS GOTTEN UP TWICE AND WALKED HALLS. REFUSES TO RUN NS @KVO IN BETWEEN Q4HR ANTIBIOTICS. NO COMPLAINTS OR CONCERNS AT THIS TIME. CL IN REACH, SRX2.
--- NOTE | 2019-05-02 13:13 | MORECARE ---
CASE MANAGEMENT DISCHARGE SUMMARY PATIENT: MARYLOU MURRAY UNIT: [id number] ADM DATE: 04/27/19 AGE: 64 : 54 SEX: F ROOM/BED: D.2133 AUTHOR: JAZIELDOC PHYSICIAN: REFERRING PHYSICIAN: BESSIE CONTI MD DATE OF SERVICE: 05/02/19 Discharge Plan Patient Name: MARYLOU MURRAY Facility: [facility]:[place] : 1955 Planned Disposition: Care Home Facility Anticipated Discharge Date: 05/02/19 Discharge Date: Expected LOS: 5 Initial Reviewer: [id number] Initial Review Date: 04/29/2019 Generated: 05/02/19 2:13 pm Comments DCP- Discharge Planning Updated by [id number]: Naomie Caballero on 04/30/19 2:[address] Patient Name: MARYLOU MURRAY Admission Status: ER Accout number: [id number] Admission Date: 04-27-2019 : 1955 Admission Diagnosis:HYPERKALEMIA Attending: BESSIE CONTI Current LOS: 3 Anticipated DC Date: Planned Disposition: Care Home Facility Primary Insurance: MEDICARE A & B Discharge Planning Comments: CM SPOKE WITH [facility], THEY VERIFIED RECEIPT OF THE REFERRAL AND I AM WAITING CALL BACK IF SHE IS ACCEPTED OR NOT. Pipeline Integrity Engineer: Naomie Caballero DCP- Discharge Planning Updated by [id number]: Naomie Caballero on 04/29/19 2:[address] Patient Name: MARYLOU MURRAY Admission Status: ER Accout number: [id number] Admission Date: 04-27-2019 : 1955 Admission Diagnosis:HYPERKALEMIA Attending: BESSIE CONTI Current LOS: 2 Anticipated DC Date: Planned Disposition: Care Home Facility Primary Insurance: MEDICARE A & B Discharge Planning Comments: CM MET WITH PATIENT AFTER OBTAINING VERBAL CONSENT. PATIENT [facility]S TO GO [facility]. JOVITA SIGNED AND I WILL [facility] IMM SIGNED. CM TO FOLLOW AND ASSIST NEEDED. Pipeline Integrity Engineer: Naomie Caballero DCPIA - Discharge Planning Initial Assessment Updated by [id number]: Naomie Caballero on 04/29/19 3:39 pm * Is the patient Alert and Oriented? Yes * Preadmission Environment Home with Family * Additional services required to return to the preadmission environment? Yes * Can the patient safely return to the preadmission environment? Yes * Has this patient been hospitalized within the prior 30 days at any hospital? Yes External Providers External Provider: [facility] Next Contact Date: 05/02/2019 Service Request Date: Service Type: Resolution: Reviewer: Comments: Coverage Notice Reviewer: [id number] Caballero Notice Issued Date-Time: 04/29/2019 15:44 Notice Type: IM Discharge Notice Notice Delivered To: Patient Relationship to Patient: Human Resources Operations Coordinator Name: Delivery Method: HAND - Hand Delivered Elizabeth Days: Prior Verbal Notification: Recipient Understood Notice: Yes Recipient Signature: Yes Med Rec Note Co-signed by Attending: Coverage Notice Comment: Reviewer: [id number] Caballero Notice Issued Date-Time: 04/29/2019 15:44 Notice Type: Patient Choice Letter Notice Delivered To: Relationship to Patient: Human Resources Operations Coordinator Name: Delivery Method: HAND - Hand Delivered Elizabeth Days: Prior Verbal Notification: Recipient Understood Notice: Yes Recipient Signature: Yes Med Rec Note Co-signed by Attending: Coverage Notice Comment: [facility] Last DP export: 04/30/19 2:35 p Patient Name: MARYLOU MURRAY Page [id number] at 1313 All edits/amendments must be made on the electronic document DICTATION DATE: 05/02/19 1313 TELEGRAPH REPEATER INSTALLER: BIENVENIDO 05/02/19 1313 RPT#: [id number] DC DATE: STATUS: ADM IN [facility] [address] [place] [address] END OF REPORT
--- NOTE | 2019-05-02 13:52 | MORECARE ---
CASE MANAGEMENT DISCHARGE SUMMARY PATIENT: MARYLOU MURRAY UNIT: [id number] ADM DATE: 04/27/19 AGE: 64 : 54 SEX: F ROOM/BED: D.5093 AUTHOR: JAZIEL,DOC PHYSICIAN: REFERRING PHYSICIAN: BESSIE CONTI MD DATE OF SERVICE: 05/02/19 Discharge Plan Patient Name: MARYLOU MURRAY Facility: [facility]:[place] : 1955 Planned Disposition: Intermediate Facility Anticipated Discharge Date: 05/02/19 Discharge Date: Expected LOS: 5 Initial Reviewer: [id number] Initial Review Date: 04/29/2019 Generated: 05/02/19 2:51 pm Comments DCP- Discharge Planning Updated by [id number]: Fabian Nicolas on 05/02/19 12:[address] Patient Name: MARYLOU MURRAY Encounter No: [id number] : 1955 Primary Insurance: MEDICARE A & B Anticipated DC Date: 05-02-2019 Planned Disposition: Intermediate Facility External [facility] DCP follow-up note: CM RECEIVED REQUEST FROM MEDICAL OPERATIONS SUPERVISOR TO PROVIDE UPDATE TO PT IN ROOM REGARDING REHAB PLACEMENT. CM MET WITH PT AND SPOUSE IN ROOM. MARYLOU MURRAY provided verbal consent to discuss current and ongoing needs with/in the presence of: SPOUSE, ARTEM. PT HAS RECEIVED PHONE CALL FROM THEIR SON WHO IS ASSISTING WITH PLACEMENT AND WERE INFORMED THAT [place] IS FULL AND THEY ARE GOING TO GO TO [facility]. CHOICE SIGNED. CM CONTACTED BRYCE MARIA OF [facility], , WHO INFORMED CM THAT [place] IS [place] AND [facility] IS ACCEPTING PT FOR REHAB AT DISCHARGE FROM HOSPITAL. BRYCE WILL MEET WITH PT IN HOSPITAL ROOM SHORTLY TO COMPLETE HER ASSESSMENT FOR ADMISSION. IMPORTANT MESSAGE FROM MEDICARE PROVIDED AND EXPLAINED. PT WANTED TO ENSURE THAT SHE WILL BE GETTING IV ANTIBIOTICS FOR MENENGITIS SHE IS HERE. CM FAXED UPDATE WITH MEDICATION LISTING TO BRYCE HOLL[facility] AT [phone]. 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 [facility]PITAL DISCHARGE. CM WAITING CLAIFICATION OF ANTIBIOTIC NEED FOR DISCHARGE TO [facility]. Fabian Nicolas, CASE MANAGEMENT DCP- Discharge Planning Updated by [id number]: Naomie Caballero on 04/30/19 2:[address] Patient Name: MARYLOU MURRAY Admission Status: ER Accout number: [id number] Admission Date: 04-27-2019 : 1955 Admission Diagnosis:HYPERKALEMIA Attending: BESSIE CONTI Current LOS: 3 Anticipated DC Date: Planned Disposition: Intermediate Facility Primary Insurance: MEDICARE A & B Discharge Planning Comments: CM SPOKE WITH [facility], THEY VERIFIED RECEIPT OF THE REFERRAL AND I AM WAITING CALL BACK IF SHE IS ACCEPTED OR NOT. Letter Stamping Machine Operator: Naomie Caballero DCP- Discharge Planning Updated by [id number]: Naomie Caballero on 04/29/19 2:[address] Patient Name: MARYLOU MURRAY Admission Status: ER Accout number: [id number] Admission Date: 04-27-2019 : 1955 Admission Diagnosis:HYPERKALEMIA Attending: BESSIE CONTI Current LOS: 2 Anticipated DC Date: Planned Disposition: Intermediate Facility Primary Insurance: MEDICARE A & B Discharge Planning Comments: CM MET WITH PATIENT AFTER OBTAINING VERBAL CONSENT. PATIENT WANTS TO GO TO [facility]. JOVITA SIGNED AND I WILL FAX REFERAL TO [facility]. IMM SIGNED. CM TO FOLLOW AND ASSIST NEEDED. Letter Stamping Machine Operator: Naomie Caballero DCPIA - Discharge Planning Initial Assessment Updated by [email or web address]: Naomie Caballero on 04/29/19 3:39 pm * Is the patient Alert and Oriented? Yes * Preadmission Environment Home with Family * Additional services required to return to the preadmission environment? Yes * Can the patient safely return to the preadmission environment? Yes * Has this patient been hospitalized within the prior 30 days at any hospital? Yes Coverage Notice Reviewer: [id number] Arti Caballero Notice Issued Date-Time: 04/29/2019 15:44 Notice Type: IM Discharge Notice Notice Delivered To: Patient Relationship to Patient: Tennis Camp Instructor Name: Delivery Method: HAND - Hand Delivered Elizabeth Days: Prior Verbal Notification: Recipient Understood Notice: Yes Recipient Signature: Yes Med Rec Note Co-signed by Attending: Coverage Notice Comment: Reviewer: [id number] Arti Caballero Notice Issued Date-Time: 04/29/2019 15:44 Notice Type: Patient Choice Letter Notice Delivered To: Relationship to Patient: Tennis Camp Instructor Name: Delivery Method: HAND - Hand Delivered Elizabeth Days: Prior Verbal Notification: Recipient Understood Notice: Yes Recipient Signature: Yes Med Rec Note Co-signed by Attending: Coverage Notice Comment: YOSELIN HENRIQUEZ Reviewer: [id number] Arti Nicolas Notice Issued Date-Time: 05/02/2019 13:00 Notice Type: IM Discharge Notice Notice Delivered To: Patient Relationship to Patient: Tennis Camp Instructor Name: Delivery Method: HAND - Hand Delivered Elizabeth Days: Prior Verbal Notification: Recipient Understood Notice: Yes Recipient Signature: Yes Med Rec Note Co-signed by Attending: Coverage Notice Comment: Reviewer: [id number] Nicolas Notice Issued Date-Time: 05/02/2019 13:00 Notice Type: Patient Choice Letter Notice Delivered To: Patient Relationship to Patient: Tennis Camp Instructor Name: Delivery Method: HAND - Hand Delivered Elizabeth Days: Prior Verbal Notification: Recipient Understood Notice: Yes Recipient Signature: Yes Med Rec Note Co-signed by Attending: Coverage Notice Comment: JOS GRIFFIN export: 05/02/19 12:13 pm Patient Name: MARYLOU MURRAY Page 14605 at 1352 All edits/amendments must be made on the electronic document DICTATION DATE: 05/02/19 1351 PEARL MAKER: BIENVENIDO 05/02/19 1351 RPT#: [id number] DC DATE: STATUS: ADM IN [facility] [address] [place] [address] END OF REPORT
--- NOTE | 2019-05-02 15:16 | NUR ---
Nutrition Follow-up: Eating very well. Diet: Cardiac PO intake: 100% x 7 meals No new wt; last wt: 188# (04/29) Last BM: 05/01 Labs noted: K+ 3.0, Ca 7.7, Mg 1.7, Alb 1.2 Meds noted: Megace, KDur, Lasix, Protonix -Continue current diet as tolerated. -Monitor wt. -RD following.
[2019-05-02 15:47] VITALS: BP 117/48
--- NOTE | 2019-05-02 18:21 | NUR ---
I have reviewed this patient and I concur with the Shift Assessment completed by the Licensed Practical Nurse today this shift.
--- NOTE | 2019-05-02 19:20 | NUR ---
BED LOW AND LOCKED REPROGRAMED FOR IVPB TO FINISH CALL LIGHT IS IN REACH
[2019-05-02 20:34] VITALS: BP 116/51
[2019-05-03 00:31] VITALS: BP 120/52
[2019-05-03 05:10] LABS: ALBUMIN 1.2 g/dL (3.4-5.0); ANION GAP 10.7 mmol/L (8-16); BILIRUBIN - TOTAL 2.55 mg/dL (0.2-1.3); CALCIUM 7.2 mg/dL (8.5-10.1); CARBON DIOXIDE 26.9 mmol/L (21.0-32.0); CREATININE - SERUM 1.5 mg/dL (0.6-1.3); POTASSIUM - SERUM 3.6 mmol/L (3.5-5.1); PROTEIN - SERUM 4.7 g/dL (6.4-8.2)
[2019-05-03 05:19] VITALS: BP 131/45
[2019-05-03 06:09] LABS: CHENODEOXYCHOLIC ACID 99 umol/L (()); CHOLIC ACID 20 umol/L (()); TOTAL BILE ACIDS 332 umol/L (()); URSODEOXYCHOLIC ACID >213 umol/L (())
--- NOTE | 2019-05-03 09:15 | NUR ---
PAGE INTO JORDAN BHANDARI APN PATIENT HAD MIDLINE PLACED YESTERDAY AND HAS BEEN RECEIVING AMPICILLIN IV 2MG EVERY 4 HOURS WITH ONLY 27/120 DOSES GIVEN. AWAITING CALL BACK TO SEE IF THIS NEEDS TO BE CONTINUED AT [facility].
--- NOTE | 2019-05-03 09:51 | MORECARE ---
CASE MANAGEMENT DISCHARGE SUMMARY PATIENT: MARYLOU MURRAY UNIT: [id number] ADM DATE: 04/27/19 AGE: 64 : 53 SEX: F ROOM/BED: D.8833 AUTHOR: JAZIEL,DOC PHYSICIAN: REFERRING PHYSICIAN: BESSIE CONTI MD DATE OF SERVICE: 05/03/19 Discharge Plan Patient Name: MARYLOU MURRAY Facility: [facility]:[place] : 1955 Planned Disposition: Long-Term Facility Anticipated Discharge Date: 05/03/19 Discharge Date: Expected LOS: 6 Initial Reviewer: [id number] Initial Review Date: 04/29/2019 Generated: 05/03/19 10:50 am Comments DCP- Discharge Planning Updated by [id number]: Fabian Nicolas on 05/02/19 12:[address] Patient Name: MARYLOU MURRAY Encounter No: [id number] : 1955 Primary Insurance: MEDICARE A & B Anticipated DC Date: 05-02-2019 Planned Disposition: Long-Term Facility External [facility], MEDICARE REHAB BED DCP follow-up note: CM RECEIVED REQUEST FROM TIME CLERK TO PROVIDE UPDATE TO PT IN ROOM REGARDING REHAB PLACEMENT. CM MET WITH PT AND SPOUSE IN ROOM. MARYLOU MURRAY provided verbal consent to discuss current and ongoing needs with/in the presence of: SPOUSE, ARTEM. PT HAS RECEIVED PHONE CALL FROM THEIR SON WHO IS ASSISTING WITH PLACEMENT AND WERE INFORMED THAT [place] IS FULL AND [facility]. CHOICE SIGNED. CM [facility]ED [facility], , WHO INFORMED CM THAT [place] IS F[facility] AND [facility] FOR REHAB AT DISCHARGE FROM HOSPITAL. BRYCE WILL MEET WITH PT IN HOSPITAL ROOM SHORTLY TO COMPLETE HER ASSESSMENT FOR ADMISSION. IMPORTANT MESSAGE FROM MEDICARE PROVIDED AND EXPLAINED. PT WANTED TO ENSURE THAT SHE WILL BE GETTING IV ANTIBIOTICS FOR MENENGITIS SHE IS HERE. CM FAXED UPDATE WITH MEDICATION LISTING TO [facility] AT [phone]. 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 [facility] FOR [facility] AT HOSPITAL DISCHARGE. CM WAITING CLAIFICATION OF ANTIBIOTIC NEED FOR DISCHARGE TO [facility]. Fabian Nicolas, CASE MANAGEMENT DCP- Discharge Planning Updated by [id number]: Naomie Caballero on 04/30/19 2:[address] Patient Name: MARYLOU MURRAY Admission Status: ER Accout number: [id number] Admission Date: 04-27-2019 : 1955 Admission Diagnosis:HYPERKALEMIA Attending: BESSIE CONTI Current LOS: 3 Anticipated DC Date: Planned Disposition: Long-Term Facility Primary Insurance: MEDICARE A & B Discharge Planning Comments: CM SPOKE WITH [facility], THEY VERIFIED RECEIPT OF THE REFERRAL AND I AM WAITING CALL BACK IF SHE IS ACCEPTED OR NOT. Atm Mechanic: Naomie Caballero DCP- Discharge Planning Updated by [id number]: Naomie Caballero on 04/29/19 2:[address] Patient Name: MARYLOU MURRAY Admission Status: ER Accout number: [id number] Admission Date: 04-27-2019 : 1955 Admission Diagnosis:HYPERKALEMIA Attending: BESSIE CONTI Current LOS: 2 Anticipated DC Date: Planned Disposition: Long-Term Facility Primary Insurance: MEDICARE A & B Discharge Planning Comments: CM MET WITH PATIENT AFTER OBTAINING VERBAL CONSENT. PATIENT WANTS TO GO TO [facility]. JOVITA SIGNED AND I WILL FAX REFERAL TO [facility]. IMM SIGNED. CM TO FOLLOW AND ASSIST NEEDED. Atm Mechanic: Naomie Caballero DCPIA - Discharge Planning Initial Assessment Updated by [email or web address]: Naomie Caballero on 04/29/19 3:39 pm * Is the patient Alert and Oriented? Yes * Preadmission Environment Home with Family * Additional services required to return to the preadmission environment? Yes * Can the patient safely return to the preadmission environment? Yes * Has this patient been hospitalized within the prior 30 days at any hospital? Yes Coverage Notice Reviewer: [id number] Arti Caballero Notice Issued Date-Time: 04/29/2019 15:44 Notice Type: IM Discharge Notice Notice Delivered To: Patient Relationship to Patient: Advanced Developer Name: Delivery Method: HAND - Hand Delivered Elizabeth Days: Prior Verbal Notification: Recipient Understood Notice: Yes Recipient Signature: Yes Med Rec Note Co-signed by Attending: Coverage Notice Comment: Reviewer: [id number] Arti Caballero Notice Issued Date-Time: 04/29/2019 15:44 Notice Type: Patient Choice Letter Notice Delivered To: Relationship to Patient: Advanced Developer Name: Delivery Method: HAND - Hand Delivered Elizabeth Days: Prior Verbal Notification: Recipient Understood Notice: Yes Recipient Signature: Yes Med Rec Note Co-signed by Attending: Coverage Notice Comment: YOSELIN HENRIQUEZ Reviewer: [id number] Arti Nicolas Notice Issued Date-Time: 05/02/2019 13:00 Notice Type: IM Discharge Notice Notice Delivered To: Patient Relationship to Patient: Advanced Developer Name: Delivery Method: HAND - Hand Delivered Elizabeth Days: Prior Verbal Notification: Recipient Understood Notice: Yes Recipient Signature: Yes Med Rec Note Co-signed by Attending: Coverage Notice Comment: Reviewer: [id number] Nicolas Notice Issued Date-Time: 05/02/2019 13:00 Notice Type: Patient Choice Letter Notice Delivered To: Patient Relationship to Patient: Advanced Developer Name: Delivery Method: HAND - Hand Delivered Elizabeth Days: Prior Verbal Notification: Recipient Understood Notice: Yes Recipient Signature: Yes Med Rec Note Co-signed by Attending: Coverage Notice Comment: JOS GRIFFIN export: 05/02/19 12:52 pm Patient Name: MARYLOU MURRAY Page [id number] at 0951 All edits/amendments must be made on the electronic document DICTATION DATE: 05/03/19949 CHEMICAL EDUCATOR: BIENVENIDO 05/03/19949 RPT#: [id number] DC DATE: STATUS: ADM IN [facility] [address] [place] [address] END OF REPORT
--- NOTE | 2019-05-03 09:56 | NUR ---
NO RETURN CALL YET FROM JORDAN BHANDARI APN. PAGED HER AGAIN.
--- NOTE | 2019-05-03 10:05 | MORECARE ---
CASE MANAGEMENT DISCHARGE SUMMARY PATIENT: MARYLOU MURRAY UNIT: [id number] ADM DATE: 04/27/19 AGE: 64 : 53 SEX: F ROOM/BED: D.7413 AUTHOR: JAZIEL,DOC PHYSICIAN: REFERRING PHYSICIAN: BESSIE CONTI MD DATE OF SERVICE: 05/03/19 Discharge Plan Patient Name: MARYLOU MURRAY Facility: [facility]:[place] : 1955 Planned Disposition: [facility] Facility Anticipated Discharge Date: 05/03/19 Discharge Date: Expected LOS: 6 Initial Reviewer: [id number] Initial Review Date: 04/29/2019 Generated: 05/03/19 11:05 am Comments DCP- Discharge Planning Updated by [id number]: Fabian Nicolas on 05/02/19 12:[address] Patient Name: MARYLOU MURRAY Encounter No: [id number] : 1955 Primary Insurance: MEDICARE A & B Anticipated DC Date: 05-02-2019 Planned Disposition: [facility] Facility External [facility] MEDICARE REHAB B[facility] DCP follow-up note: CM RECEIVED REQUEST FROM WEALTH MANAGEMENT CONSULTANT TO PROVIDE UPDATE TO PT IN ROOM REGARDING REHAB PLACEMENT. CM MET WITH PT AND SPOUSE IN ROOM. MARYLOU MURRAY provided verbal consent to discuss current and ongoing needs with/in the presence of: SPOUSE, ARTEM. PT HAS RECEIVED PHONE CALL FROM THEIR SON WHO IS ASSISTING WITH PLACEMENT AND WERE INFORMED THAT [place] IS FULL AND THEY ARE GOING TO GO TO [facility]. CHOICE SIGNED. CM CONTACTED BRYCE MARIA OF [facility], , WHO INFORMED CM THAT [place] IS F[place] AND [facility] IS ACCEPTING PT FOR REHAB AT DISCHARGE FROM HOSPITAL. BRYCE WILL MEET WITH PT IN HOSPITAL ROOM SHORTLY TO COMPLETE HER ASSESSMENT FOR ADMISSION. IMPORTANT MESSAGE FROM MEDICARE PROVIDED AND EXPLAINED. PT WANTED TO ENSURE THAT SHE WILL BE GETTING IV ANTIBIOTICS FOR MENENGITIS SHE IS HERE. CM FAXED UPDATE WITH MEDICATION LISTING TO BRYCE [facility]LL[facility] AT [phone]. 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 [facility]GE. CM WAITING CLAIFICATION OF ANTIBIOTIC NEED [facility]. Fabian Nicolas, CASE MANAGEMENT DCP- Discharge Planning Updated by [id number]: Naomie Ada on 04/30/19 2:[address] Patient Name: MARYLOU MURRAY Admission Status: ER Accout number: [id number] Admission Date: 04-27-2019 : 1955 Admission Diagnosis:HYPERKALEMIA Attending: BESSIE CONTI Current LOS: 3 Anticipated DC Date: Planned Disposition: [facility] Facility Primary Insurance: MEDICARE A & B Discharge Planning Comments: CM SPOKE WITH [facility], THEY VERIFIED RECEIPT OF THE REFERRAL AND I AM WAITING CALL BACK IF SHE IS ACCEPTED OR NOT. Associate Research Scientist: Naomie Caballero DCP- Discharge Planning Updated by [id number]: Naomie Ada on 04/29/19 2:[address] Patient Name: MARYLOU MURRAY Admission Status: ER Accout number: [id number] Admission Date: 04-27-2019 : 1955 Admission Diagnosis:HYPERKALEMIA Attending: BESSIE CONTI Current LOS: 2 Anticipated DC Date: Planned Disposition: [facility] Facility Primary Insurance: MEDICARE A & B Discharge Planning Comments: CM MET WITH PATIENT AFTER OBTAINING VERBAL CONSENT. PATIENT WANTS TO GO TO [facility]. JOVITA SIGNED AND I WILL FAX REFERAL TO [facility]. IMM SIGNED. CM TO FOLLOW AND ASSIST NEEDED. Associate Research Scientist: Naomie Caballero DCPIA - Discharge Planning Initial Assessment Updated by [email or web address]: Naomie Caballero on 04/29/19 3:39 pm * Is the patient Alert and Oriented? Yes * Preadmission Environment Home with Family * Additional services required to return to the preadmission environment? Yes * Can the patient safely return to the preadmission environment? Yes * Has this patient been hospitalized within the prior 30 days at any hospital? Yes External Providers External Provider: [facility] Next Contact Date: 05/02/2019 Service Request Date: Service Type: Resolution: Reviewer: Comments: Coverage Notice Reviewer: [id number] - Fabian Nicolas Notice Issued Date-Time: 05/02/2019 13:00 Notice Type: Patient Choice Letter Notice Delivered To: Patient Relationship to Patient: Independent Consultant Name: Delivery Method: HAND - Hand Delivered Elizabeth Days: Prior Verbal Notification: Recipient Understood Notice: Yes Recipient Signature: Yes Med Rec Note Co-signed by Attending: Coverage Notice Comment: JOS Reviewer: [id number] Arti Caballero Notice Issued Date-Time: 04/29/2019 15:44 Notice Type: Patient Choice Letter Notice Delivered To: Relationship to Patient: Independent Consultant Name: Delivery Method: HAND - Hand Delivered Elizabeth Days: Prior Verbal Notification: Recipient Understood Notice: Yes Recipient Signature: Yes Med Rec Note Co-signed by Attending: Coverage Notice Comment: YOSELIN [facility] Reviewer: [id number] Arti Nicolas Notice Issued Date-Time: 05/02/2019 13:00 Notice Type: IM Discharge Notice Notice Delivered To: Patient Relationship to Patient: Independent Consultant Name: Delivery Method: HAND - Hand Delivered Elizabeth Days: Prior Verbal Notification: Recipient Understood Notice: Yes Recipient Signature: Yes Med Rec Note Co-signed by Attending: Coverage Notice Comment: Reviewer: [id number] Arti Caballero Notice Issued Date-Time: 04/29/2019 15:44 Notice Type: IM Discharge Notice Notice Delivered To: Patient Relationship to Patient: Independent Consultant Name: Delivery Method: HAND - Hand Delivered Elizabeth Days: Prior Verbal Notification: Recipient Understood Notice: Yes Recipient Signature: Yes Med Rec Note Co-signed by Attending: Coverage Notice Comment: Last DP export: 05/03/19 8:51 am Patient Name: MARYLOU MURRAY Page [phone] at 1005 All edits/amendments must be made on the electronic document DICTATION DATE: 05/03/19 1005 MANAGER OFFICE SERVICES: BIENVENIDO 05/03/19 1005 RPT#: [id number] DC DATE: STATUS: ADM IN [facility] [address] [place] [address] END OF REPORT
--- NOTE | 2019-05-03 10:13 | MORECARE ---
CASE MANAGEMENT DISCHARGE SUMMARY PATIENT: MARYLOU MURRAY UNIT: [id number] ADM DATE: 04/27/19 AGE: 64 : 53 SEX: F ROOM/BED: D.2133 AUTHOR: JAZIEL,DOC PHYSICIAN: REFERRING PHYSICIAN: BESSIE CONTI MD DATE OF SERVICE: 05/03/19 Discharge Plan Patient Name: MARYLOU MURRAY Facility: [facility]:[place] : 1955 Planned Disposition: Residential Facility Anticipated Discharge Date: 05/03/19 Discharge Date: Expected LOS: 6 Initial Reviewer: [id number] Initial Review Date: 04/29/2019 Generated: 05/03/19 11:13 am Comments DCP- Discharge Planning Updated by [id number]: Fabian Nicolas on 05/03/19 9:[address] Patient Name: MARYLOU MURRAY Encounter No: [id number] : 1955 Primary Insurance: MEDICARE A & B Anticipated DC Date: 05-03-2019 Planned Disposition: Residential Facility External Planned Provider: [facility], MEDICARE REHAB BED DCP follow-up note: CM RECEIVED DISCHARGE ORDER, SPOKE TO PT AND SPOUSE, BOTH IN AGREEMENT FOR DISCHARGE TO REHAB TODAY, SPOUSE TO TRANSPORT. CM NOTIFIED BRYCE MARIA AND NIKIA OF [facility], CM WAS ADVISED THEY ARE READY TO ACCEPT PT NOW. CM FAXED DISCHARGE INFORMATION TO [facility] AT [phone]. CALL NURSE REPORT TO [facility] AT [phone]. FAX CORRECTED MEDICATION LISTING TO [facility] AT [phone]. PT'S SPOUSE TO TRANSPORT. VONNIE Duncan DCP- Discharge Planning Updated by [id number]: Fabian Nicolas on 05/02/19 12:[address] Patient Name: MARYLOU MURRAY Encounter No: [id number] : 1955 Primary Insurance: MEDICARE A & B Anticipated DC Date: 05-02-2019 Planned Disposition: Residential Facility External Planned Provider: [facility], MEDICARE REHAB BED DCP follow-up note: CM RECEIVED REQUEST FROM SPORTS FITNESS AND WELLNESS DIRECTOR TO PROVIDE UPDATE TO PT IN ROOM REGARDING REHAB PLACEMENT. CM MET WITH PT AND SPOUSE IN ROOM. MARYLOU MURRAY provided verbal consent to discuss current and ongoing needs with/in the presence of: SPOUSE, ARTEM. PT HAS RECEIVED PHONE CALL FROM THEIR SON WHO IS ASSISTING WITH PLACEMENT AND WERE INFORMED THAT [place] IS FULL AND THEY ARE GOING TO GO TO [facility] INSTEAD. CHOICE SIGNED. CM CONTACTED BRYCE MARIA OF [facility], , WHO INFORMED CM THAT [place] IS [place] AND [facility] IS ACCEPTING PT FOR REHAB AT DISCHARGE FROM HOSPITAL. BRYCE WILL MEET WITH PT IN HOSPITAL ROOM SHORTLY TO COMPLETE HER ASSESSMENT FOR ADMISSION. IMPORTANT MESSAGE FROM MEDICARE PROVIDED AND EXPLAINED. PT WANTED TO ENSURE THAT SHE WILL BE GETTING IV ANTIBIOTICS FOR MENENGITIS SHE IS HERE. CM FAXED UPDATE WITH MEDICATION LISTING TO [facility] AT [phone]. 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 [facility] TO ACCEPT PT FOR REHAB AT HOSPITAL DISCHARGE. CM WAITING CLAIFICATION OF ANTIBIOTIC NEED FOR DISCHARGE TO CUSTODIAL REHAB. Fabian Nicolas, CASE MANAGEMENT DCP- Discharge Planning Updated by [id number]: Naomie Caballero on 04/30/19 2:[address] Patient Name: MARYLOU MURRAY Admission Status: ER Accout number: [id number] Admission Date: 04-27-2019 : 1955 Admission Diagnosis:HYPERKALEMIA Attending: BESSIE CONTI Current LOS: 3 Anticipated DC Date: Planned Disposition: Residential Facility Primary Insurance: MEDICARE A & B Discharge Planning Comments: CM S[facility] WITH [facility], THEY VERIFIED RECEIPT OF THE REFERRAL AND I AM WAITING CALL BACK IF SHE IS ACCEPTED OR NOT. Coremaker: Naomie Caballero DCP- Discharge Planning Updated by [id number]: Naomie Caballero on 04/29/19 2:[address] Patient Name: MARYLOU MURRAY Admission Status: ER Accout number: [id number] Admission Date: 04-27-2019 : 1955 Admission Diagnosis:HYPERKALEMIA Attending: BESSIE CONTI Current LOS: 2 Anticipated DC Date: Planned Disposition: Residential Facility Primary Insurance: MEDICARE A & B Discharge Planning Comments: CM MET WITH PATIENT AFTER OBTAINING VERBAL CONSENT. PATIENT WANTS TO GO TO [facility]. JOVITA SIGNED AND I WILL FAX REFERAL TO [facility]. IMM SIGNED. CM TO FOLLOW AND ASSIST NEEDED. Coremaker: Naomie Caballero DCPIA - Discharge Planning Initial Assessment Updated by [id number]: Naomie Caballero on 04/29/19 3:39 pm * Is the patient Alert and Oriented? Yes * Preadmission Environment Home with Family * Additional services required to return to the preadmission environment? Yes * Can the patient safely return to the preadmission environment? Yes * Has this patient been hospitalized within the prior 30 days at any hospital? Yes Coverage Notice Reviewer: [id number] Arti Nicolas Notice Issued Date-Time: 05/02/2019 13:00 Notice Type: Patient Choice Letter Notice Delivered To: Patient Relationship to Patient: Caponizer Name: Delivery Method: HAND - Hand Delivered Elizabeth Days: Prior Verbal Notification: Recipient Understood Notice: Yes Recipient Signature: Yes Med Rec Note Co-signed by Attending: Coverage Notice Comment: JOS Reviewer: [email or web address] Arti Caballero Notice Issued Date-Time: 04/29/2019 15:44 Notice Type: Patient Choice Letter Notice Delivered To: Relationship to Patient: Caponizer Name: Delivery Method: HAND - Hand Delivered Elizabeth Days: Prior Verbal Notification: Recipient Understood Notice: Yes Recipient Signature: Yes Med Rec Note Co-signed by Attending: Coverage Notice Comment: [facility] Reviewer: [id number] Arti Nicolas Notice Issued Date-Time: 05/02/2019 13:00 Notice Type: IM Discharge Notice Notice Delivered To: Patient Relationship to Patient: Caponizer Name: Delivery Method: HAND - Hand Delivered Elizabeth Days: Prior Verbal Notification: Recipient Understood Notice: Yes Recipient Signature: Yes Med Rec Note Co-signed by Attending: Coverage Notice Comment: Reviewer: [id number] Arti Caballero Notice Issued Date-Time: 04/29/2019 15:44 Notice Type: IM Discharge Notice Notice Delivered To: Patient Relationship to Patient: Caponizer Name: Delivery Method: HAND - Hand Delivered Elizabeth Days: Prior Verbal Notification: Recipient Understood Notice: Yes Recipient Signature: Yes Med Rec Note Co-signed by Attending: Coverage Notice Comment: Last DP export: 05/03/19 9:05 am Patient Name: MARYLOU MURRAY Page 69819 at 1013 All edits/amendments must be made on the electronic document DICTATION DATE: 05/03/19 1013 CHEMICAL DETECTION EXPERT: BIENVENIDO 05/03/19 1013 RPT#: [id number] DC DATE: STATUS: ADM IN [facility] [address] [place] [address] END OF REPORT
[2019-05-03 10:15] VITALS: BP 126/56
--- NOTE | 2019-05-03 10:19 | NUR ---
JORDAN BHANDARI APN TO CALL BACK AND WILL GET WITH DR SALINAS ABOUT THE AMPICILLIN.
--- NOTE | 2019-05-03 12:05 | NUR ---
DR STEWARD ON FLOOR TO RE-VIEW MEDICATIONS FOR DISCHARGE.
[2019-05-03] MEDS ORDERED: LASIX40 MG PO (12:10)
[2019-05-03] MEDS ORDERED: K-DUR20 MEQ PO (12:10)
[2019-05-03] MEDS ORDERED: AMPICILLIN 2 GM/2 G1 IV (12:10)
--- NOTE | 2019-05-03 13:09 | MORECARE ---
CASE MANAGEMENT DISCHARGE SUMMARY PATIENT: MARYLOU MURRAY UNIT: [id number] ADM DATE: 04/27/19 AGE: 64 : 53 SEX: F ROOM/BED: D.2133 AUTHOR: JAZIEL,DOC PHYSICIAN: REFERRING PHYSICIAN: BESSIE CONTI MD DATE OF SERVICE: 05/03/19 Discharge Plan Patient Name: MARYLOU MURRAY Facility: [facility]:[place] : 1955 Planned Disposition: [facility] Facility Anticipated Discharge Date: 05/03/19 Discharge Date: Expected LOS: 6 Initial Reviewer: [id number] Initial Review Date: 04/29/2019 Generated: 05/03/19 2:08 pm Comments DCP- Discharge Planning Updated by [id number]: Fabian Nicolas on 05/03/19 12:[address] Patient Name: MARYLOU MURRAY Encounter No: [id number] : 1955 Primary Insurance: MEDICARE A & B Anticipated DC Date: 05-03-2019 Planned Disposition: [facility] Facility External Planned Provider: [facility], MEDICARE REHAB BED DCP follow-up note: CM RECEIVED DISCHARGE ORDER, SPOKE TO PT AND SPOUSE, BOTH IN AGREEMENT FOR DISCHARGE TO REHAB TODAY, SPOUSE TO TRANSPORT. CM NOTIFIED BRYCE MARIA AND NIKIA OF [facility], CM WAS ADVISED THEY ARE READY TO ACCEPT PT NOW. CM FAXED DISCHARGE INFORMATION TO [facility] AT [phone]. CALL NURSE REPORT TO [facility] AT [phone]. FAX CORRECTED MEDICATION LISTING TO [facility] AT [phone]. PT'S SPOUSE TO TRANSPORT. Fabian Nicolas CASE MANAGEMENT Appended by Fabian Nicolas on 05/03/2019 13:03 INSTRUMENTATION CHEMIST: CM RECEIVED AND FAXED CORRECTED MEDICATION LISTING TO [facility] AT [phone]. VONNIE MARSHALL DCP- Discharge Planning Updated by [id number]: Fabian Nicolas on 05/02/19 12:[address] Patient Name: MARYLOU MURRAY Encounter No: [id number] : 1955 Primary Insurance: MEDICARE A & B Anticipated DC Date: 05-02-2019 Planned Disposition: [facility] Facility External Planned Provider: [facility], MEDICARE REHAB BED DCP follow-up note: CM RECEIVED REQUEST FROM FACILITIES MAINTENANCE ENGINEER TO PROVIDE UPDATE TO PT IN ROOM REGARDING REHAB PLACEMENT. CM MET WITH PT AND SPOUSE IN ROOM. MARYLOU MURRAY provided verbal consent to discuss current and ongoing needs with/in the presence of: SPOUSE, ARTEM. PT HAS RECEIVED PHONE CALL FROM THEIR SON WHO IS ASSISTING WITH PLACEMENT AND WERE INFORMED THAT [place] AND THEY ARE GOING TO GO TO [facility] INSTEAD. CHOICE SIGNED. CM CONTACTED BRYCE MARIA OF [facility], , WHO INFORMED CM THAT [place] AND [facility] IS ACCEPTING PT FOR REHAB AT DISCHARGE FROM HOSPITAL. BRCYE WILL MEET WITH PT IN HOSPITAL ROOM SHORTLY TO COMPLETE HER ASSESSMENT FOR ADMISSION. IMPORTANT MESSAGE FROM MEDICARE PROVIDED AND EXPLAINED. PT WANTED TO ENSURE THAT SHE WILL BE GETTING IV ANTIBIOTICS FOR MENENGITIS SHE IS HERE. CM FAXED UPDATE WITH MEDICATION LISTING TO BR[facility] AT [phone]. 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 [facility] TO ACCEPT PT FOR REHAB AT HOSPITAL DISCHARGE. CM WAITING CLAIFICATION OF ANTIBIOTIC NEED FOR DISCHARGE TO [facility] REHAB. Fabian Nicolas, CASE MANAGEMENT DCP- Discharge Planning Updated by [id number]: Naomie Caballero on 04/30/19 2:[address] Patient Name: MARYLOU MURRAY Admission Status: ER Accout number: [id number] Admission Date: 04-27-2019 : 1955 Admission Diagnosis:HYPERKALEMIA Attending: BESSIE CONTI Current LOS: 3 Anticipated DC Date: Planned Disposition: [facility] Facility Primary Insurance: MEDICARE A & B Discharge Planning Comments: CM SPOKE WITH [facility], THEY VERIFIED RECEIPT OF THE REFERRAL AND I AM WAITING CALL BACK IF SHE IS ACCEPTED OR NOT. Chef & Owner: Naomie Caballero DCP- Discharge Planning Updated by [id number]: Naomie Caballero on 04/29/19 2:[address] Patient Name: MARYLOU MURRAY Admission Status: ER Accout number: [id number] Admission Date: 04-27-2019 : 1955 Admission Diagnosis:HYPERKALEMIA Attending: BESSIE CONTI Current LOS: 2 Anticipated DC Date: Planned Disposition: [facility] Facility Primary Insurance: MEDICARE A & B Discharge Planning Comments: CM MET WITH PATIENT AFTER OBTAINING VERBAL CONSENT. PATIENT WANTS TO GO TO [facility]. JOVITA SIGNED AND I WILL FAX REFERAL TO [facility]. IMM SIGNED. CM TO FOLLOW AND ASSIST NEEDED. Chef & Owner: Naomiedeanne Caballero DCPIA - Discharge Planning Initial Assessment Updated by [id number]: Naomie Caballero on 04/29/19 3:39 pm * Is the patient Alert and Oriented? Yes * Preadmission Environment Home with Family * Additional services required to return to the preadmission environment? Yes * Can the patient safely return to the preadmission environment? Yes * Has this patient been hospitalized within the prior 30 days at any hospital? Yes Coverage Notice Reviewer: [email or web address] Arti Caballero Notice Issued Date-Time: 04/29/2019 15:44 Notice Type: IM Discharge Notice Notice Delivered To: Patient Relationship to Patient: Theater Manager Name: Delivery Method: HAND - Hand Delivered Elizabeth Days: Prior Verbal Notification: Recipient Understood Notice: Yes Recipient Signature: Yes Med Rec Note Co-signed by Attending: Coverage Notice Comment: Reviewer: [id number] Arti Caballero Notice Issued Date-Time: 04/29/2019 15:44 Notice Type: Patient Choice Letter Notice Delivered To: Relationship to Patient: Theater Manager Name: Delivery Method: HAND - Hand Delivered Elizabeth Days: Prior Verbal Notification: Recipient Understood Notice: Yes Recipient Signature: Yes Med Rec Note Co-signed by Attending: Coverage Notice Comment: [facility] Reviewer: [id number] Arti Nicolas Notice Issued Date-Time: 05/02/2019 13:00 Notice Type: IM Discharge Notice Notice Delivered To: Patient Relationship to Patient: Theater Manager Name: Delivery Method: HAND - Hand Delivered Elizabeth Days: Prior Verbal Notification: Recipient Understood Notice: Yes Recipient Signature: Yes Med Rec Note Co-signed by Attending: Coverage Notice Comment: Reviewer: [id number] Arti Nicolas Notice Issued Date-Time: 05/02/2019 13:00 Notice Type: Patient Choice Letter Notice Delivered To: Patient Relationship to Patient: Theater Manager Name: Delivery Method: HAND - Hand Delivered Elizabeth Days: Prior Verbal Notification: Recipient Understood Notice: Yes Recipient Signature: Yes Med Rec Note Co-signed by Attending: Coverage Notice Comment: JOS GRIFFIN export: 05/03/19 9:13 am Patient Name: MARYLOU MURRAY Page [phone] at 1309 All edits/amendments must be made on the electronic document DICTATION DATE: 05/03/191307 BALANCE WHEEL MOTION INSPECTOR: BIENVENIDO 05/03/191307 RPT#: [id number] DC DATE: STATUS: ADM IN [facility] [address] [place] [address] END OF REPORT
--- NOTE | 2019-05-03 13:40 | NUR ---
PT DISCHARGED TO [facility]. PICC LINE IN PLACE AND CLAMPED WITH SWAP CAP IN PLACE. PT SIGNED PROPER DISCHARGE INSTRUCTIONS AND REMOVED ALL VALUABLES FROM THE ROOM.
--- NOTE | 2019-05-03 17:45 | NUR ---
OT NOTE: PT COMPLETED SIT TO STAND WITH CGA. PT COMPLETED ADL MOB WITH CGA-MIN A. PT BALANCE IS FAIR. PT SEVERAL SIT TO STANDS WITH SBA. PT COMPLETED BUE AROM EXS AT EOB WITH SPV. [phone] THANK YOU,CATHLEEN MANCILLA
== END 2019-05-03 13:41 | DRG 432 ==
LOC: D.ER 18:35 → D.M2 04-27 08:51
PROVIDERS: Family Medicine; Internal Medicine Gastroenterology; ADMIT Internal Medicine Nephrology; ATTEND Internal Medicine Nephrology
DX: K74.3 Primary biliary cirrhosis (principal); G03.9 Meningitis, unspecified; J18.9 Pneumonia, unspecified organism; K85.10 Biliary acute pancreatitis without necrosis or infection; E43 Unspecified severe protein-calorie malnutrition; D64.9 Anemia, unspecified; Z68.35 Body mass index [BMI] 35.0-35.9, adult; E03.9 Hypothyroidism, unspecified; I50.9 Heart failure, unspecified; Z86.73 Personal history of transient ischemic attack (TIA), and cerebral infarction without residual deficits

== ENCOUNTER 2019-05-05 15:23 | Inpatient (IN) | payer MEDICARE, BC ==
[~2019-05-05] VITALS: Ht 154.9 cm; Wt 78.9 kg
--- NOTE | ~2019-05-05 | EC ---
PATIENT:MARYLOU MURRAY DATE OF SERVICE: 05/05/19 SEX: F MEDICAL RECORD: [id number] DATE OF : [birth year] LOCATION:D.MS [id number] AGE OF PATIENT: 64 ADMISSION DATE: 05/05/19 REFERRING PHYSICIAN: INTERPRETING PHYSICIAN: CHARO TEAGUE MD ECHOCARDIOGRAM REPORT ECHO CHARGES 4 ECHO COMPLETE Date: 05/06/19 CLINICAL DIAGNOSIS: SYNCOPE ECHOCARDIOGRAPHIC MEASUREMENTS (adult normal given) AC root (d.<3.7cm) 2.3 cm LV Septum d (<1.2 cm> 0.9 cm Valve Excursion 1.3 cm LV Septum (systole) 1.0 cm Left Atria (s.<4.0cm> 3.5 cm LVPW d(<1.2cm) 0.9 cm RV (d.<2.3cm) 2.6 cm LVPW (sytole) 1.0 cm LV diastole(<5.6CM) 6.0 cm MV E-F(>70mm/sec) cm LV systole 4.9 cm LVOT Diameter 1.7 cm MV exc.(>10mm) cm Est.ejection fraction (50-75%) % DOPPLER: LVIT cm/sec A 105 cm/sec E 165 cm/sec LA cm/sec RVSP 40.1 mmHg LVOT 338 cm/sec AOP1/2T m/s Asc. Ao 343 cm/sec RVOT 134 cm/sec RA cm/sec PA 214 cm/sec AV Gradient Peak 47.0 mmHg AV Mean 20.9 mmHg AV Area 1.5 cm MV Gradient Peak mmHg MV Mean mmHg MV Area cm COMMENTS: Quality Compliance Manager: Jessica SHELL Pack Worker Supervisor: Austin Abernathy TAPE# PACS Pericardial Effusion N DATE OF SERVICE: FINDINGS: 1. Left ventricular chamber size is mildly dilated. Left ventricular systolic function is preserved at 60%. 2. Left atrium, right atrium, and right ventricular chamber sizes are within normal limits. 3. Valvular structures have normal structure and motion. 4. Doppler interrogation reveals moderate mitral regurgitation, mild tricuspid regurgitation, no other valvular insufficiency or stenosis. ECHOCARDIOGRAM REPORT [id number] MARYLOU MURRAY 5. No evidence of pericardial effusion or left ventricular thrombus. TRANSINT:[id number] Voice Confirmation ID: [id number] DOCUMENT ID: [id number] CHARO TEAGUE MD CC: [id number] DICTATION DATE: 05/06/1947 STATISTICS TEACHER: 05/06/19 0948 ADM IN [facility] [address] [place] [id number]
--- NOTE | ~2019-05-05 | EEG ---
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 Procedure EEG done as a routine bedside portable recording using the standard 10-20 international electrode system. A 16-channel was used with 17th as EKG. Photic stimulation was done as activation procedure. DESCRIPTION: EEG opens with the patient awake with the record displaying fair organization of the background with occasional emergence of a posterior dominant rhythm of 10 Hz prominently intermixed with theta and occasional delta slowing. There were periods of prominent runs of theta and occasionally mixed with delta slowing bilaterally, left hemisphere more than right. Less frequent occasions was prominent, semi-rhythmic, delta slowing, occasionally interspersed with sharps producing a "sharp and slow" pattern more prominent in the left temporal regions. Only rare isolated sharp activities were seen. No epileptiform change such as spike polyspike or spike and wave was seen. Photic stimulation did not yield a significant driving response. There was a photomyogenic or photoparoxysmal response seen. IMPRESSION: Moderately abnormal EEG with emergence of theta and delta slowing suggesting a fairly prominent cortical dysfunction, left hemisphere more than right. Emergence of sharp and slow activities could be suggestive of a paroxysmal disorder, though are not diagnostic of an epileptiform or seizure activity. TRANSINT:[id number] Voice Confirmation ID: [id number] DOCUMENT ID: [id number] GINA RAY MD CC: [id number] DICTATION DATE: 05/10/19 175 SSDS MK 2 ADVANCED OPERATOR: 05/11/19 1245 DIS IN 05/11/19 [place] [id number] [place] [id number]
[~2019-05-05 15:23] MED LIST changes: +AMPICILLIN 2 GM/2 G1 IV; +LASIX40 MG PO
--- NOTE | 2019-05-05 15:40 | NUR ---
PT TO CT
[2019-05-05 15:47] LABS: BASOPHILS 0.6 % (0-2); EOSINOPHILS 1.9 % (0-7); HEMATOCRIT 28.6 % (36.0-48.0); HEMOGLOBIN 9.2 g/dL (12-16); IMMATURE GRANULOCYTES 1.2 % (0-5); MCH 31.3 pg (26.0-34.0); MCHC 32.2 g/dL (31.0-37.0); MCV 97.3 fL (80.0-100.0); MEAN PLATELET VOLUME 10.1 fL (7.4-10.4); MONOCYTES 9.9 % (2-11); NEUTROPHILS 77.4 % (40-80); RBC 2.94 10x6/uL (4.00-5.40); RDW 19.9 % (11.5-14.5); WBC 9.6 10x3/uL (4.8-10.8)
[2019-05-05 15:56] LABS: PLATELET COUNT 138 10x3/uL (130-400)
[2019-05-05 16:03] LABS: CALCIUM 7.8 mg/dL (8.5-10.1); CARBON DIOXIDE 23.1 mmol/L (21.0-32.0); CREATININE - SERUM 1.6 mg/dL (0.6-1.3); POTASSIUM - SERUM 3.1 mmol/L (3.5-5.1)
[2019-05-05 16:04] LABS: APTT 26.8 SECONDS (22.8-39.4); INR 1.22 (0.85-1.17); PROTIME 15.3 SECONDS (11.6-15.0)
[2019-05-05 16:19] LABS: ALBUMIN 1.5 g/dL (3.4-5.0); BILIRUBIN - TOTAL 3.13 mg/dL (0.2-1.3); MAGNESIUM - SERUM 1.5 mg/dL (1.8-2.4); PROTEIN - SERUM 6.1 g/dL (6.4-8.2); THYROID STIMULATING HORMONE 3.62 uIU/mL (0.36-3.74)
[2019-05-05 16:31] LABS: TROPONIN-I 0.242 ng/mL (0.000-0.060)
--- NOTE | 2019-05-05 18:15 | NUR ---
URINE TO LAB
[2019-05-05 18:20] LABS: BILIRUBIN NEGATIVE (NEGATIVE); GLUCOSE NEGATIVE (NEGATIVE); KETONE NEGATIVE (NEGATIVE); NITRITE NEGATIVE (NEGATIVE); UROBILINOGEN NORMAL (NORMAL)
--- NOTE | 2019-05-05 18:45 | NUR ---
I have reviewed this patient and I concur with the Shift Assessment completed by the Licensed Practical Nurse today this shift.
--- NOTE | 2019-05-05 20:45 | NUR ---
ADMITED TO ROOM ALERT AND ORIENTIATED, REPORTS PASSED OUT WHILE AT PT TODAY IN REHAB, DENIES PAIN OR NEEDS AT THIS TIME, FAMILY AT BEDSIDE, ORIENTIATED TO ROOM , CALL LIGHT IN REACH
[2019-05-05 22:40] VITALS: BMI 32.9
--- NOTE | 2019-05-06 00:15 | NUR ---
CALL FROM CAGE MANAGER REPORTS PT HAVING RUNS OF PVC'S INTO V TACH, CHECKED ON PT STATES ASSISTED HER TO BATHROOM AND ONE OF LEADS CAME OFF AND HE PUT IT BACK, LEADS CHECKED AND REPLACED , RADIAL PULSE REGULAR, MONITORS NOW REPORTING NSR
[2019-05-06 04:00] VITALS: BP 136/89
--- NOTE | 2019-05-06 06:45 | NUR ---
PATIENT UP TO BATHROOM AND HAD SEIZURE LIKE ACTIVITY. RAPID RESPONCE CALLED,SEE SHEET.
[2019-05-06 06:54] LABS: BASOPHILS 0.4 % (0-2); EOSINOPHILS 4.2 % (0-7); HEMATOCRIT 24.5 % (36.0-48.0); HEMOGLOBIN 7.9 g/dL (12-16); IMMATURE GRANULOCYTES 0.6 % (0-5); LYMPHOCYTES 17.8 % (15-50); MCH 31.7 pg (26.0-34.0); MCHC 32.2 g/dL (31.0-37.0); MCV 98.4 fL (80.0-100.0); MEAN PLATELET VOLUME 9.9 fL (7.4-10.4); MONOCYTES 9.3 % (2-11); NEUTROPHILS 67.7 % (40-80); PLATELET COUNT 120 10x3/uL (130-400); RBC 2.49 10x6/uL (4.00-5.40); RDW 20.3 % (11.5-14.5)
[2019-05-06 06:59] LABS: ALBUMIN 1.3 g/dL (3.4-5.0); ANION GAP 10.2 mmol/L (8-16); BILIRUBIN - TOTAL 2.3 mg/dL (0.2-1.3); CALCIUM 7.6 mg/dL (8.5-10.1); CARBON DIOXIDE 27.5 mmol/L (21.0-32.0); CREATININE - SERUM 1.3 mg/dL (0.6-1.3); MAGNESIUM - SERUM 1.6 mg/dL (1.8-2.4); PHOSPHOROUS 3.2 mg/dL (2.5-4.9); PROTEIN - SERUM 5.2 g/dL (6.4-8.2); THYROID STIMULATING HORMONE 2.3 uIU/mL (0.36-3.74)
[2019-05-06 07:10] LABS: WBC 6.7 10x3/uL (4.8-10.8)
[2019-05-06 07:41] LABS: POTASSIUM - SERUM 2.7 mmol/L (3.5-5.1)
[2019-05-06 07:45] LABS: APTT 24.7 SECONDS (22.8-39.4); INR 1.3 (0.85-1.17); PROTIME 16.1 SECONDS (11.6-15.0)
[2019-05-06 08:08] LABS: CKMB 0.2 U/L (0.0-3.6); CREATINE KINASE 57 UL (21-215)
[2019-05-06 08:09] LABS: TROPONIN-I 0.195 ng/mL (0.000-0.060)
--- NOTE | 2019-05-06 08:24 | NUR ---
I have reviewed this patient and I concur with the Shift Assessment completed by the Licensed Practical Nurse today this shift.
--- NOTE | 2019-05-06 09:47 | NUR ---
ASSISTED PT TO RESTROOM AND CHANGED INTO YELLOW GOWN. PT INQUIRED ON MRI AND IF MINI STROKES WOULD CAUSE HER SEIZURES. ADVISED PT WE ARE RUNNING ALL TESTS TO RULE OUT EVERYTHING AND PINPOINT CAUSE OF SEIZURES. PT STATED THIS STARTED UESTERDAY AND SHE HAD ONE YESTERDAY MORNING WELL. SPOUSE AT BEDSIDE, ANSWERED MANY QUESTIONS POSSIBLE. CONTINUE WITH PLAN OF CARE
[2019-05-06 11:29] VITALS: BMI 32.8
--- NOTE | 2019-05-06 12:43 | MORECARE ---
CASE MANAGEMENT DISCHARGE SUMMARY PATIENT: MARYLOU MURRAY UNIT: [id number] ADM DATE: 05/05/19 AGE: 64 : 53 SEX: F ROOM/BED: D.2234 AUTHOR: JAZIEL,DOC PHYSICIAN: REFERRING PHYSICIAN: ANDRÉS DIAZ MD DATE OF SERVICE: 05/06/19 Discharge Plan Patient Name: MARYLOU MURRAY Facility: [facility]:[place] : 1955 Planned Disposition: Acute Care Hospital Anticipated Discharge Date: 05/06/19 Discharge Date: Expected LOS: 1 Initial Reviewer: [id number] Initial Review Date: 05/05/2019 Generated: 05/06/19 1:42 pm Comments DCP- Discharge Planning Updated by [id number]: Marianne Hunter on 05/06/19 11:[address] Patient Name: MARYLOU MURRAY Admission Status: ER Accout number: [id number] Admission Date: 05-05-2019 : 1955 Admission Diagnosis: Attending: SOCORRO DIAZ Current LOS: 1 Anticipated DC Date: 05-06-2019 Planned Disposition: Acute Care Hospital Primary Insurance: MEDICARE A & B Discharge Planning Comments: CM received orders to transfer to another hospital for neurology. I* spoke with patient and her son and they request [facility]. I spoke with Blanche, editor house organ, she approves. I called Transfer center and spoke with Rosita and clinical and face sheet faxed. GARTH Colon, to get a disc of images and Nena, customer supply coordinator, to get the COBRA form and ambulance form. CM will continue to follow and assist with discharge planning/needs. Clerk Checker: Marianne Hunter DCPIA - Discharge Planning Initial Assessment Updated by [id number]: Marianne Hunter on 05/06/19 12:38 pm * Is the patient Alert and Oriented? Yes * How many steps to enter\exit or inside your home? 0/0 * PCP Miguel Angel Burger * Pharmacy [facility] * Preadmission Environment Care Home Facility * Facility Name [place] * ADLs Partial Dependent * Partial ADLs (Assistance needed) Ambulation * Equipment Shower Chair Walker * List name and contact numbers for known caregivers / representatives who currently or will assist patient after discharge: Ajit Jose - kavita [phone] Tim martínez - [phone] * Verbal permission to speak to the caregivers and representatives has been obtained from the patient. Yes * Community resources currently utilized None * Additional services required to return to the preadmission environment? Yes * Can the patient safely return to the preadmission environment? Yes * Has this patient been hospitalized within the prior 30 days at any hospital? Yes External Providers External Provider: [facility] Next Contact Date: Service Request Date: Service Type: Resolution: Reviewer: Comments: Patient Name: MARYLOU MURRAY Page [phone] at 1243 All edits/amendments must be made on the electronic document DICTATION DATE: 05/06/191241 SLUBBER MACHINE OPERATOR: BIENVENIDO 05/06/191241 RPT#: [id number] DC DATE: STATUS: ADM IN [facility] [address] [place] [address] END OF REPORT
[2019-05-06 13:45] VITALS: Ht 154.9 cm; Wt 78.9 kg
[2019-05-06 14:24] VITALS: BP 114/49
[2019-05-06 14:44] LABS: CKMB 0.8 U/L (0.0-3.6); CREATINE KINASE 69 UL (21-215)
[2019-05-06 14:46] LABS: TROPONIN-I 0.248 ng/mL (0.000-0.060)
[2019-05-06 16:28] VITALS: BP 126/52
--- NOTE | 2019-05-06 17:23 | NUR ---
PT KEEPS REQUESTING TO SEE DR, EXPLAINED THAT NURSE PRACTITIONER WAS HERE AND STILL WAITING ON DR. NO OTHER NEEDS VOICED, CL IN REACH SPOUSE AT BEDSIDE, CONTINUE WITH PLAN OF CARE
--- NOTE | 2019-05-06 17:56 | NUR ---
PT REFUSED TO HAVE MRI DONE AT THIS TIME SHE MAY BE TRANSFERRED TO [facility]. PT IS ALSO WAITING ON DR DIAZ STILL. ADVISED PT IT MAY BE TOMORROW BEFORE DR DIAZ MAKES IT BACK TO THE FLOOR. NO OTHER NEEDS AT THIS TIME. CONTINUE WITH PLAN OF CARE
[2019-05-06 20:00] VITALS: BP 112/47
[2019-05-06 20:06] LABS: CREATINE KINASE 68 UL (21-215)
[2019-05-06 20:10] LABS: TROPONIN-I 0.493 ng/mL (0.000-0.060)
[2019-05-07] VITALS: BP 130/46
[2019-05-07 04:00] VITALS: BP 116/65
[2019-05-07 06:28] LABS: BASOPHILS 0.7 % (0-2); EOSINOPHILS 4.7 % (0-7); HEMATOCRIT 25.3 % (36.0-48.0); HEMOGLOBIN 8.3 g/dL (12-16); LYMPHOCYTES 19.8 % (15-50); MCH 32.5 pg (26.0-34.0); MCHC 32.8 g/dL (31.0-37.0); MCV 99.2 fL (80.0-100.0); MEAN PLATELET VOLUME 9.8 fL (7.4-10.4); NEUTROPHILS 65.8 % (40-80); PLATELET COUNT 135 10x3/uL (130-400); RBC 2.55 10x6/uL (4.00-5.40); RDW 20.4 % (11.5-14.5); WBC 8.2 10x3/uL (4.8-10.8)
[2019-05-07 07:07] LABS: % SATURATION 40 % (15-55); IRON 57 ug/dl (35-150); TOTAL IRON BIND CAPACITY 142 ug/dl (260-445); UNSAT IRON BIND CAPACITY 85 ug/dl (150-375)
[2019-05-07 07:18] LABS: ALBUMIN 1.4 g/dL (3.4-5.0); ANION GAP 10.7 mmol/L (8-16); BILIRUBIN - TOTAL 2.21 mg/dL (0.2-1.3); CALCIUM 7.7 mg/dL (8.5-10.1); CARBON DIOXIDE 26.5 mmol/L (21.0-32.0); CREATININE - SERUM 1.3 mg/dL (0.6-1.3); MAGNESIUM - SERUM 1.6 mg/dL (1.8-2.4); PHOSPHOROUS 3.5 mg/dL (2.5-4.9); PROTEIN - SERUM 5.5 g/dL (6.4-8.2)
[2019-05-07 07:19] LABS: POTASSIUM - SERUM 3.2 mmol/L (3.5-5.1)
[2019-05-07 07:58] VITALS: BP 125/55
--- NOTE | 2019-05-07 09:00 | NUR ---
PATIENT ALERT AND ORIENTED X4. HAND GRASP EQUAL WITH NO FOCAL DEFICITS NOTED. GOOD ROM OF EXT. X4. AMBULATING IN HALLWAY WITH THERAPY AND . DENIES ANY PAIN OR DISCOMFORT. PICC INTACT TO LUE WITH NO S/S OF INFECTION/INFILTRATION. ABDOMEN SOFT WITH BOWEL SOUNDS NOTED. TELEMETRY INTACT. ENCOURAGED TO USE CALLL LIGHT FOR ASSIST.
[2019-05-07 12:24] VITALS: BP 118/47
--- NOTE | 2019-05-07 14:19 | MORECARE ---
CASE MANAGEMENT DISCHARGE SUMMARY PATIENT: MARYLOU MURRAY UNIT: [id number] ADM DATE: 05/06/19 AGE: 64 : 53 SEX: F ROOM/BED: D.2234 AUTHOR: JAZIEL,DOC PHYSICIAN: REFERRING PHYSICIAN: ANDRÉS DIAZ MD DATE OF SERVICE: 05/07/19 Discharge Plan Patient Name: MARYLOU MURRAY Facility: [facility]:[place] : 1955 Planned Disposition: Acute Care Hospital Anticipated Discharge Date: 05/06/19 Discharge Date: Expected LOS: 1 Initial Reviewer: [id number] Initial Review Date: 05/05/2019 Generated: 05/07/19 3:18 pm Comments DCP- Discharge Planning Updated by [email or web address]: Lauren Krueger on 05/07/19 1:[address] LATE ENTRY 1315 CM RECEIVED TC FROM [facility]. NURSING INFORMATICS SPECIALIST REGARDING STATUS OF TRANSFER REQUEST FOR NEUROLOGY SERVICES. TC TO EASY ADMIT. SPOKE TO [facility]. SHE STATES THE DOCUMENTATION INDICATES THAT DR DIAZ CANCELLED THE TRANSFER AT 1750 WITH CATHY. ARRANGEMENTS HAD BEEN MADE FOR HIM TO SPEAK WITH A DR MURPHY. DCP- Discharge Planning Updated by [id number]: Marianne Hunter on 05/06/19 11:[address] Patient Name: MARYLOU MURRAY Admission Status: ER Accout number: [id number] Admission Date: 05-05-2019 : 1955 Admission Diagnosis: Attending: SOCORRO DIAZ Current LOS: 1 Anticipated DC Date: 05-06-2019 Planned Disposition: Acute Care Hospital Primary Insurance: MEDICARE A & B Discharge Planning Comments: CM received orders to transfer to another hospital for neurology. I* spoke with patient and her son and they request [facility]. I spoke with Blanche, vat house laborer, she approves. I called Transfer center and spoke with Rosita and clinical and face sheet faxed. GARTH Colon, to get a disc of images and Nena, care management coordinator, to get the COBRA form and ambulance form. CM will continue to follow and assist with discharge planning/needs. Wet Room Worker: Marianne Hunter DCPIA - Discharge Planning Initial Assessment Updated by [email or web address]: Marianne uHnter on 05/06/19 12:38 pm * Is the patient Alert and Oriented? Yes * How many steps to enter\exit or inside your home? 0/0 * PCP Miguel Angel Burger * Pharmacy [facility] * Preadmission Environment [facility] * Facility Name [facility] * ADLs Partial Dependent * Partial ADLs (Assistance needed) Ambulation * Equipment Shower Chair Walker * List name and contact numbers for known caregivers / representatives who currently or will assist patient after discharge: Ajit Rubin Arti Jose - [facility] [phone] Tim [facility] [phone] * Verbal permission to speak to the caregivers and representatives has been obtained from the patient. Yes * Community resources currently utilized None * Additional services required to return to the preadmission environment? Yes * Can the patient safely return to the preadmission environment? Yes * Has this patient been hospitalized within the prior 30 days at any hospital? Yes Coverage Notice Reviewer: [id number] - Marianne Hunter Notice Issued Date-Time: 05/06/2019 12:44 Notice Type: Patient Choice Letter Notice Delivered To: Patient Relationship to Patient: Self Handicapped Teacher Name: Delivery Method: HAND - Hand Delivered Elizabeth Days: Prior Verbal Notification: Recipient Understood Notice: Yes Recipient Signature: Yes Med Rec Note Co-signed by Attending: Coverage Notice Comment: [facility] Dunn DP export: 05/06/19 11:42 am Patient Name: MARYLOU MURRAY Page [id number] at 1419 All edits/amendments must be made on the electronic document DICTATION DATE: 05/07/191417 SUSTAINABILITY DIRECTOR: BIENVENIDO 05/07/191417 RPT#: [id number] DC DATE: STATUS: ADM IN [facility] [address] [place] [address] END OF REPORT
[2019-05-07 19:43] VITALS: BP 135/55
--- NOTE | 2019-05-07 20:10 | NUR ---
AWAKE AND ALERT. ORIENTED X4. LYING IN BED. SIG OTHER AT BEDSIDE. DENIES PAIN. NO SEIZURE ACTIVITY NOTED. RESP EVEN AND NONLABORED. TELEMETRY SHOWS SR WITH RATE OF 79. PITTING EDEMA NOTED TO BLE. AMBULATORY. SALINE LOCK NOTED TO LT UPPER ARM MIDLINE. SR ELEVATED X2. CL IN REACH.
--- NOTE | 2019-05-07 23:45 | NUR ---
RESTING QUIETLY WITH EYES CLOSED. RESP EVEN AND NONLABORED. NO DISTRESS. CL IN REACH.
[2019-05-08] VITALS: BP 117/45
[2019-05-08 04:00] VITALS: BP 121/50
[2019-05-08 06:14] LABS: BASOPHILS 0.7 % (0-2); EOSINOPHILS 5.8 % (0-7); HEMATOCRIT 24.9 % (36.0-48.0); HEMOGLOBIN 7.8 g/dL (12-16); IMMATURE GRANULOCYTES 1.1 % (0-5); LYMPHOCYTES 18.9 % (15-50); MCH 31.5 pg (26.0-34.0); MCHC 31.3 g/dL (31.0-37.0); MCV 100.4 fL (80.0-100.0); MEAN PLATELET VOLUME 9.3 fL (7.4-10.4); MONOCYTES 8.1 % (2-11); NEUTROPHILS 65.4 % (40-80); PLATELET COUNT 128 10x3/uL (130-400); RBC 2.48 10x6/uL (4.00-5.40); RDW 20.3 % (11.5-14.5)
[2019-05-08 06:35] LABS: ALBUMIN 1.4 g/dL (3.4-5.0); ANION GAP 11.6 mmol/L (8-16); BILIRUBIN - TOTAL 2.33 mg/dL (0.2-1.3); CALCIUM 7.4 mg/dL (8.5-10.1); CARBON DIOXIDE 26.2 mmol/L (21.0-32.0); CREATININE - SERUM 1.2 mg/dL (0.6-1.3); MAGNESIUM - SERUM 1.4 mg/dL (1.8-2.4); PHOSPHOROUS 3.6 mg/dL (2.5-4.9)
[2019-05-08 06:41] LABS: POTASSIUM - SERUM 2.8 mmol/L (3.5-5.1)
--- NOTE | 2019-05-08 08:06 | NUR ---
ALERT AND ORIENTED X4 ABDOMEN SOFT WITH BOWEL SOUNDS NOTED X4. PICC INTACT TO LUE WITH NO S/S OF INFECTION/INFILTRATION.TELEMETRY INTACT AND DENIES ANY CHEST PAIN OR DISCOMFORT. ELECTROLYTE PROTOCOL FOLLOWED FOR LOW POTASSIUM AND MAGNESIUM. DENEIS ANY PAIN OR DISCOMFORT AT THIS TIME AND ENCOURAGED TO USE CALL LIGHT FOR ASSIT.
[2019-05-08 09:43] VITALS: BP 125/52
[2019-05-08 12:53] VITALS: BP 114/54
[2019-05-08 14:50] LABS: MAGNESIUM - SERUM 2.4 mg/dL (1.8-2.4); POTASSIUM - SERUM 3.3 mmol/L (3.5-5.1)
[2019-05-08 17:53] VITALS: BP 132/56
[2019-05-08 20:00] VITALS: BP 137/56
--- NOTE | 2019-05-08 20:40 | NUR ---
SITTING UP IN BED LOOKING AT SOME PAPERWORK. AT BEDSIDE. THEY TELL STAFF THAT THE DRS THINK SHE HAD A MILD STROKE. 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 VERY WORRIED AND SAD. ALERT AND ORIENTED X4. RESP EVEN AND NONLABORED. BRUISES NOTED TO BUE. PICC NOTED TO LT UPPER ARM. TELEMETRY SHOWS SR WITH RATE OF 80. ECCHYMOSIS NOTED TO BUE AND BLE. PITTING EDEMA NOTED TO BLE BUT IMPROVING. DENIES PAIN. SR ELEVATED X2. CL IN REACH.
[2019-05-09] VITALS: BP 141/60
--- NOTE | 2019-05-09 01:39 | NUR ---
HAS SLEPT WELL SO FAR TONIGHT. SPOUSE AT BEDSIDE. NO DISTRESS. CL IN REACH.
[2019-05-09 04:00] VITALS: BP 138/74
--- NOTE | 2019-05-09 04:03 | NUR ---
LYING ON RT SIDE IN BED WITH EYES CLOSED. RESP NONLABORED. NO DISTRESS. SPOUSE AT BEDSIDE. CL IN REACH.
[2019-05-09 04:51] LABS: BASOPHILS 0.6 % (0-2); EOSINOPHILS 5.2 % (0-7); HEMATOCRIT 27.2 % (36.0-48.0); HEMOGLOBIN 8.7 g/dL (12-16); IMMATURE GRANULOCYTES 0.8 % (0-5); MCH 31.3 pg (26.0-34.0); MEAN PLATELET VOLUME 9.7 fL (7.4-10.4); MONOCYTES 6.4 % (2-11); PLATELET COUNT 137 10x3/uL (130-400); RBC 2.78 10x6/uL (4.00-5.40); RDW 20.4 % (11.5-14.5); WBC 8.3 10x3/uL (4.8-10.8)
[2019-05-09 04:57] LABS: MCV 97.8 fL (80.0-100.0)
[2019-05-09 05:39] LABS: CALCIUM 7.4 mg/dL (8.5-10.1); MAGNESIUM - SERUM 1.8 mg/dL (1.8-2.4); PHOSPHOROUS 3.3 mg/dL (2.5-4.9)
[2019-05-09 05:42] LABS: ALBUMIN 1.4 g/dL (3.4-5.0); ANION GAP 10.5 mmol/L (8-16); BILIRUBIN - TOTAL 2.47 mg/dL (0.2-1.3); CREATININE - SERUM 1.2 mg/dL (0.6-1.3); POTASSIUM - SERUM 3.5 mmol/L (3.5-5.1)
--- NOTE | 2019-05-09 06:45 | NUR ---
ALERT AND ORIENTED. NO C/O PAIN. NO S/S OF ACUTE DISTRESS NOTED. ON TELEMETRY 74SR WITH PVCS. IV TO LEFT UPPER ARM PICC, SL. SITE PATENT WITHOUT REDNESS OR SWELLING. BLE EDEMA. DENIES ANY NEEDS AT THIS TIME. CALL LIGHT IN REACH. WILL CONTINUE TO MONITOR.
--- NOTE | 2019-05-09 08:22 | MORECARE ---
CASE MANAGEMENT DISCHARGE SUMMARY PATIENT: MARYLOU MURRAY UNIT: [id number] ADM DATE: 05/06/19 AGE: 64 : 53 SEX: F ROOM/BED: D.2234 AUTHOR: JAZIEL,DOC PHYSICIAN: REFERRING PHYSICIAN: ANDRÉS DIAZ MD DATE OF SERVICE: 05/09/19 Discharge Plan Patient Name: MARYLOU MURRAY Facility: [facility]:[place] : 1955 Planned Disposition: Acute Care Hospital Anticipated Discharge Date: 05/06/19 Discharge Date: Expected LOS: 1 Initial Reviewer: [id number] Initial Review Date: 05/05/2019 Generated: 05/09/19 9:21 am Comments DCP- Discharge Planning Updated by [email or web address]: Marianne Hunter on 05/09/19 7:[address] UPDATED CLINICAL FAXED TO [facility]. DCP- Discharge Planning Updated by [email or web address]: Lauren Krueger on 05/07/19 12:[address] LATE ENTRY 1315 CM RECEIVED TC FROM [facility] REGARDING STATUS OF TRANSFER REQUEST FOR NEUROLOGY SERVICES. TC TO EASY ADMIT. SPOKE TO [facility]. SHE STATES THE DOCUMENTATION INDICATES THAT DR DIAZ CANCELLED THE TRANSFER AT 1750 WITH CATHY. ARRANGEMENTS HAD BEEN MADE FOR HIM TO SPEAK WITH A DR MURPHY. DCP- Discharge Planning Updated by [id number]: Marianne Hunter on 05/06/19 10:[address] Patient Name: MARYLOU MURRAY Admission Status: ER Accout number: [id number] Admission Date: 05-05-2019 : 1955 Admission Diagnosis: Attending: SOCORRO DIAZ Current LOS: 1 Anticipated DC Date: 05-06-2019 Planned Disposition: Acute Care Hospital Primary Insurance: MEDICARE A & B Discharge Planning Comments: CM received orders to transfer to another hospital for neurology. I* spoke with patient and her son and they request [facility]. I spoke with Blanche, warehouse picker, she approves. I called Transfer center and spoke with Rosita and clinical and face sheet faxed. GARTH Colon, to get a disc of images and Nena, international marketing coordinator, to get the COBRA form and ambulance form. CM will continue to follow and assist with discharge planning/needs. Pooling Operator: Marianne Hunter DCPIA - Discharge Planning Initial Assessment Updated by [id number]: Marianne Hunter on 05/06/19 12:38 pm * Is the patient Alert and Oriented? Yes * How many steps to enter\exit or inside your home? 0/0 * PCP Miguel Angel Burger * Pharmacy [place] * Preadmission Environment [facility] * Facility Name [facility] * ADLs Partial Dependent * Partial ADLs (Assistance needed) Ambulation * Equipment Shower Chair Walker * List name and contact numbers for known caregivers / representatives who currently or will assist patient after discharge: Ajit Conklin Arti Jose - son [phone] Tim [facility] [phone] * Verbal permission to speak to the caregivers and representatives has been obtained from the patient. Yes * Community resources currently utilized None * Additional services required to return to the preadmission environment? Yes * Can the patient safely return to the preadmission environment? Yes * Has this patient been hospitalized within the prior 30 days at any hospital? Yes External Providers External Provider: [facility] Next Contact Date: Service Request Date: Service Type: Resolution: Reviewer: Comments: Coverage Notice Reviewer: [id number] - Marianne Hunter Notice Issued Date-Time: 05/06/2019 12:44 Notice Type: Patient Choice Letter Notice Delivered To: Patient Relationship to Patient: Self Senior Accounting Clerk Name: Delivery Method: HAND - Hand Delivered Elizabeth Days: Prior Verbal Notification: Recipient Understood Notice: Yes Recipient Signature: Yes Med Rec Note Co-signed by Attending: Coverage Notice Comment: [facility] DP export: 05/07/19 12:19 pm Patient Name: MARYLOU MURRAY Page [id number] at 0822 All edits/amendments must be made on the electronic document DICTATION DATE: 05/09/19820 WOUND NURSE: BIENVENIDO 05/09/19820 RPT#: [id number] DC DATE: STATUS: ADM IN [facility] [address] [place] [address] END OF REPORT
[2019-05-09 09:14] VITALS: BP 130/55
[2019-05-09 12:52] VITALS: BP 121/49
--- NOTE | 2019-05-09 15:34 | NUR ---
I have reviewed this patient and I concur with the Shift Assessment completed by the Licensed Practical Nurse today this shift.
--- NOTE | 2019-05-09 18:29 | NUR ---
ALERT AND ORIENTED. NO C/O PAIN. NO S/S OF ACUTE DISTRESS NOTED. DENIES ANY NEEDS AT THIS TIME. CALL LIGHT IN REACH. WILL CONTINUE TO MONITOR.
[2019-05-09 20:00] VITALS: BP 128/58
[2019-05-10] VITALS: BP 125/54
[2019-05-10 04:00] VITALS: BP 127/59
[2019-05-10 06:35] LABS: BASOPHILS 0.6 % (0-2); EOSINOPHILS 5.8 % (0-7); HEMATOCRIT 28.3 % (36.0-48.0); HEMOGLOBIN 9.1 g/dL (12-16); IMMATURE GRANULOCYTES 0.7 % (0-5); LYMPHOCYTES 13.7 % (15-50); MCH 31.6 pg (26.0-34.0); MCHC 32.2 g/dL (31.0-37.0); MCV 98.3 fL (80.0-100.0); MEAN PLATELET VOLUME 9.8 fL (7.4-10.4); MONOCYTES 7.6 % (2-11); NEUTROPHILS 71.6 % (40-80); PLATELET COUNT 154 10x3/uL (130-400); RBC 2.88 10x6/uL (4.00-5.40); WBC 8.9 10x3/uL (4.8-10.8)
--- NOTE | 2019-05-10 06:45 | NUR ---
ALERT AND ORIENTED. NO C/O PAIN. NO S/S OF ACUTE DISTRESS NOTED. DENIES ANY NEEDS AT THIS TIME. CALL LIGHT IN REACH. WILL CONTINUE TO MONITOR.
[2019-05-10 07:13] LABS: ALBUMIN 1.4 g/dL (3.4-5.0); ANION GAP 14.1 mmol/L (8-16); BILIRUBIN - TOTAL 2.54 mg/dL (0.2-1.3); CALCIUM 7.9 mg/dL (8.5-10.1); CARBON DIOXIDE 25.7 mmol/L (21.0-32.0); CREATININE - SERUM 1.4 mg/dL (0.6-1.3); MAGNESIUM - SERUM 1.7 mg/dL (1.8-2.4); PROTEIN - SERUM 5.5 g/dL (6.4-8.2)
[2019-05-10 07:38] LABS: POTASSIUM - SERUM 2.8 mmol/L (3.5-5.1)
[2019-05-10] MEDS ORDERED: KEPPRA750 MG PO (08:24)
[2019-05-10] MEDS ORDERED: ASPIRIN81 MG PO (08:24)
[2019-05-10] MEDS ORDERED: FUROSEMIDE20 MG PO (08:25)
[2019-05-10] MEDS ORDERED: K-DUR20 MEQ PO (08:25)
[2019-05-10] MEDS ORDERED: AMPICILLIN 2 GM/2 G1 IV (08:43)
--- NOTE | 2019-05-10 09:03 | MORECARE ---
CASE MANAGEMENT DISCHARGE SUMMARY PATIENT: MARYLOU MURRAY UNIT: [id number] ADM DATE: 05/06/19 AGE: 64 : 53 SEX: F ROOM/BED: D.2234 AUTHOR: GOMEZ SHERIFF PHYSICIAN: REFERRING PHYSICIAN: ANDRÉS DIAZ MD DATE OF SERVICE: 05/10/19 Discharge Plan Patient Name: MARYLOU MURRAY Facility: [facility]:[place] : 1955 Planned Disposition: Acute Care Hospital Anticipated Discharge Date: 05/06/19 Discharge Date: Expected LOS: 1 Initial Reviewer: [email or web address] Initial Review Date: 05/05/2019 Generated: 05/10/19 10:03 am Comments DCP- Discharge Planning Updated by [email or web address]: Marianne Hunter on 05/10/19 7:[address] Received discharge order. I notified Neva, but did not get a call back. I called [facility] and spoke with Estella, she states she will call back with a fruit or nut picker time. She will be discharging to a skilled (Medicare) bed. DC orders, updated clinical faxed to [facility]. DCP- Discharge Planning Updated by [id number]: Marianne Hunter on 05/09/19 7:[address] UPDATED CLINICAL FAXED TO [facility]. DCP- Discharge Planning Updated by [email or web address]: Lauren Krueger on 05/07/19 12:[address] LATE ENTRY 1315 CM RECEIVED TC FROM [facility] REGARDING STATUS OF TRANSFER REQUEST FOR NEUROLOGY SERVICES. TC TO EASY ADMIT. SPOKE TO LUCILLE. SHE STATES THE DOCUMENTATION INDICATES THAT DR DIAZ CANCELLED THE TRANSFER AT 1750 WITH CATHY. ARRANGEMENTS HAD BEEN MADE FOR HIM TO SPEAK WITH A DR MURPHY. DCP- Discharge Planning Updated by [id number]: Marianne Hunter on 05/06/19 10:[address] Patient Name: MARYLOU MURRAY Admission Status: ER Accout number: [id number] Admission Date: 05-05-2019 : 1955 Admission Diagnosis: Attending: SOCORRO DIAZ Current LOS: 1 Anticipated DC Date: 05-06-2019 Planned Disposition: Acute Care Hospital Primary Insurance: MEDICARE A & B Discharge Planning Comments: CM received orders to transfer to another hospital for neurology. I* spoke with patient and her son and they request [facility]. I spoke with Blanche, tank house supervisor, she approves. I called Transfer center and spoke with Rosita and clinical and face sheet faxed. GARTH Colon, to get a disc of images and Nena, group rooms coordinator, to get the COBRA form and ambulance form. CM will continue to follow and assist with discharge planning/needs. Director Cardiac: Marianne Hunter DCPIA - Discharge Planning Initial Assessment Updated by [id number]: Marianne Hunter on 05/06/19 12:38 pm * Is the patient Alert and Oriented? Yes * How many steps to enter\exit or inside your home? 0/0 * PCP Miguel Angel Burger * Pharmacy [facility] * [facility] * Facility Name [facility] * ADLs Partial Dependent * Partial ADLs (Assistance needed) Ambulation * Equipment Shower Chair Walker * List name and contact numbers for known caregivers / representatives who currently or will assist patient after discharge: Ajit Chi Spencer - son [phone] [facility] [phone] * Verbal permission to speak to the caregivers and representatives has been obtained from the patient. Yes * Community resources currently utilized None * Additional services required to return to the preadmission environment? Yes * Can the patient safely return to the preadmission environment? Yes * Has this patient been hospitalized within the prior 30 days at any hospital? Yes Coverage Notice Reviewer: [email or web address] Arti Hunter Notice Issued Date-Time: 05/06/2019 12:44 Notice Type: Patient Choice Letter Notice Delivered To: Patient Relationship to Patient: Self Housekeeping Supervisor Name: Delivery Method: HAND - Hand Delivered Elizabeth Days: Prior Verbal Notification: Recipient Understood Notice: Yes Recipient Signature: Yes Med Rec Note Co-signed by Attending: Coverage Notice Comment: [facility] Reviewer: [id number] Arti Hunter Notice Issued Date-Time: 05/10/2019 9:01 Notice Type: IM Discharge Notice Notice Delivered To: Patient Relationship to Patient: Self Housekeeping Supervisor Name: Delivery Method: - Elizabeth Days: Prior Verbal Notification: Recipient Understood Notice: Recipient Signature: Med Rec Note Co-signed by Attending: Coverage Notice Comment: Last DP export: 05/09/19 7:22 am Patient Name: MARYLOU MURRAY #: [id number] Page [id number] at 0903 All edits/amendments must be made on the electronic document DICTATION DATE: 05/10/19902 SYSTEMS ANALYST ENGINEER: BIENVENIDO 05/10/19902 RPT#: [id number] DC DATE: STATUS: ADM IN [facility] [address] [place] [address] END OF REPORT
[2019-05-10 09:42] VITALS: BP 131/60
--- NOTE | 2019-05-10 15:26 | MORECARE ---
CASE MANAGEMENT DISCHARGE SUMMARY PATIENT: MARYLOU MURRAY UNIT: [id number] ADM DATE: 05/06/19 AGE: 64 : 54 SEX: F ROOM/BED: D.2234 AUTHOR: JAZIEL,DOC PHYSICIAN: REFERRING PHYSICIAN: ANDRÉS DIAZ MD DATE OF SERVICE: 05/10/19 Discharge Plan Patient Name: MARYLOU MURRAY Facility: [facility]:[place] : 1955 Planned Disposition: Acute Care Hospital Anticipated Discharge Date: 05/06/19 Discharge Date: Expected LOS: 1 Initial Reviewer: [id number] Initial Review Date: 05/05/2019 Generated: 05/10/19 4:25 pm Comments DCP- Discharge Planning Updated by [email or web address]: Marianne Hunter on 05/10/19 2:[address] Received a call from Dr. Vu that they do not want to accept the patient to [facility] today. States he would like to see her potassium level to be more stable. I notified Judd Bowen APN. I notified the patient and she states she will notify her family. CM will continue to follow and assist with discharge planning/needs. DCP- Discharge Planning Updated by [id number]: Marianne Hunter on 05/10/19 7:[address] Received discharge order. I notified Neva, but did not get a call back. I called [facility] and spoke with Estella, she states she will call back with a picking machine operator time. She will be discharging to a skilled (Medicare) bed. DC orders, updated clinical faxed to [facility]. DCP- Discharge Planning Updated by [id number]: Marianne Hunter on 05/09/19 7:[address] UPDATED CLINICAL FAXED TO [facility]. DCP- Discharge Planning Updated by [id number]: Lauren Krueger on 05/07/19 12:[address] LATE ENTRY 1315 CM RECEIVED TC FROM [facility] REGARDING STATUS OF TRANSFER REQUEST FOR NEUROLOGY SERVICES. TC TO EASY ADMIT. SPOKE TO LUCILLE. SHE STATES THE DOCUMENTATION INDICATES THAT DR DIAZ CANCELLED THE TRANSFER AT 1750 WITH CATHY. ARRANGEMENTS HAD BEEN MADE FOR HIM TO SPEAK WITH A DR MURPHY. DCP- Discharge Planning Updated by [id number]: Marianne Elsa on 05/06/19 10:[address] Patient Name: MARYLOU MURRAY Admission Status: ER Accout number: [id number] Admission Date: 05-05-2019 : 1955 Admission Diagnosis: Attending: SOCORRO DIAZ Current LOS: 1 Anticipated DC Date: 05-06-2019 Planned Disposition: Acute Care Hospital Primary Insurance: MEDICARE A & B Discharge Planning Comments: CM received orders to transfer to another hospital for neurology. I* spoke with patient and her son and they request [facility]. I spoke with Blanche, house piping inspector, she approves. I called Transfer center and spoke with Rosita and clinical and face sheet faxed. GARTH Colon, to get a disc of images and Nena, flower picker, to get the COBRA form and ambulance form. CM will continue to follow and assist with discharge planning/needs. Consulting Nurse: Marianne Hunter DCPIA - Discharge Planning Initial Assessment Updated by [id number]: Marianne Hunter on 05/06/19 12:38 pm * Is the patient Alert and Oriented? Yes * How many steps to enter\exit or inside your home? 0/0 * PCP Miguel Angel Burger * Pharmacy [facility] * Preadmission Environment [facility] * Facility Name [facility] * ADLs Partial Dependent * Partial ADLs (Assistance needed) Ambulation * Equipment Shower Chair Walker * List name and contact numbers for known caregivers / representatives who currently or will assist patient after discharge: Ajit Conklin Arti Jose - son [phone] [facility] [phone] * Verbal permission to speak to the caregivers and representatives has been obtained from the patient. Yes * Community resources currently utilized None * Additional services required to return to the preadmission environment? Yes * Can the patient safely return to the preadmission environment? Yes * Has this patient been hospitalized within the prior 30 days at any hospital? Yes Coverage Notice Reviewer: [id number] Arti Hunter Notice Issued Date-Time: 05/06/2019 12:44 Notice Type: Patient Choice Letter Notice Delivered To: Patient Relationship to Patient: Self Insurance Claim Representative Name: Delivery Method: HAND - Hand Delivered Elizabeth Days: Prior Verbal Notification: Recipient Understood Notice: Yes Recipient Signature: Yes Med Rec Note Co-signed by Attending: Coverage Notice Comment: [facility] Reviewer: [id number] Arti Hunter Notice Issued Date-Time: 05/10/2019 9:01 Notice Type: IM Discharge Notice Notice Delivered To: Patient Relationship to Patient: Self Insurance Claim Representative Name: Delivery Method: HAND - Hand Delivered Elizabeth Days: Prior Verbal Notification: Recipient Understood Notice: Yes Recipient Signature: Yes Med Rec Note Co-signed by Attending: Coverage Notice Comment: IMM explained, signed, given and copy placed in MR Last DP export: 05/10/19 8:03 a Patient Name: MARYLOU MURRAY Page 13930 at 1526 All edits/amendments must be made on the electronic document DICTATION DATE: 05/10/19 152 TAR AND AMMONIA PUMP OPERATOR: BIENVENIDO 05/10/19 152 RPT#: [id number] DC DATE: STATUS: ADM IN [facility] [address] [place] [address] END OF REPORT
[2019-05-10 17:24] VITALS: BP 120/54
--- NOTE | 2019-05-10 18:14 | NUR ---
ALERT AND ORIENTED. NO C/O PAIN. NO S/S OF ACUTE DISTRESS NOTED. DENIES ANY NEEDS AT THIS TIME. CALL LIGHT IN REACH. WILL CONTINUE TO MONITOR.
[2019-05-10 20:00] VITALS: BP 112/52
[2019-05-11 04:00] VITALS: BP 131/58
--- NOTE | 2019-05-11 05:00 | NUR ---
REC'D CHGE OF SHIFT WALKING ROUNDS IN BED EYES CLOSED RESP DEEP AND EVEN WILL CONTINUE TO MONITOR FOR ANY CHGES AND FOLLOW CURRENT PLAN OF CARE
--- NOTE | 2019-05-11 06:45 | NUR ---
ALERT AND ORIENTED. NO C/O PAIN. NO S/S OF ACUTE DISTRESS NOTED. POSSIBLE DC TODAY TO [facility]. DENIES ANY NEEDS AT THIS TIME. CALL LIGHT IN REACH. WILL CONTINUE TO MONITOR.
[2019-05-11 06:46] LABS: BASOPHILS 0.7 % (0-2); EOSINOPHILS 6.4 % (0-7); HEMATOCRIT 26.7 % (36.0-48.0); HEMOGLOBIN 8.5 g/dL (12-16); IMMATURE GRANULOCYTES 0.8 % (0-5); LYMPHOCYTES 13.5 % (15-50); MCH 31.7 pg (26.0-34.0); MCHC 31.8 g/dL (31.0-37.0); MCV 99.6 fL (80.0-100.0); MEAN PLATELET VOLUME 10.1 fL (7.4-10.4); MONOCYTES 6.4 % (2-11); NEUTROPHILS 72.2 % (40-80); PLATELET COUNT 164 10x3/uL (130-400); RBC 2.68 10x6/uL (4.00-5.40); WBC 8.9 10x3/uL (4.8-10.8)
[2019-05-11 07:00] LABS: ANION GAP 12.6 mmol/L (8-16); CARBON DIOXIDE 24.9 mmol/L (21.0-32.0); CREATININE - SERUM 1.4 mg/dL (0.6-1.3); MAGNESIUM - SERUM 1.7 mg/dL (1.8-2.4); POTASSIUM - SERUM 3.5 mmol/L (3.5-5.1)
--- NOTE | 2019-05-11 08:00 | NUR ---
PATIENT IS RESTING,WITHOUT DISTRESS.CALL LIGHT IN REACH
--- NOTE | 2019-05-11 09:25 | MORECARE ---
CASE MANAGEMENT DISCHARGE SUMMARY PATIENT: MARYLOU MURRAY UNIT: [id number] ADM DATE: 05/06/19 AGE: 64 : 53 SEX: F ROOM/BED: D.2234 AUTHOR: GOMEZ SHERIFF PHYSICIAN: REFERRING PHYSICIAN: ANDRÉS DIAZ MD DATE OF SERVICE: 05/11/19 Discharge Plan Patient Name: MARYLOU MURRAY Facility: [facility]:[place] : 1955 Planned Disposition: Acute Care Hospital Anticipated Discharge Date: 05/06/19 Discharge Date: Expected LOS: 1 Initial Reviewer: [email or web address] Initial Review Date: 05/05/2019 Generated: 05/11/19 10:25 am Comments DCP- Discharge Planning Updated by [email or web address]: Marianne Hunter on 05/11/19 8:[address] Received a call from Luis Sethi states they will accept the patient today. Luis will get me a picking belt operator time. Clinical faxed. Judd notified. DCP- Discharge Planning Updated by [id number]: Marianne Hunter on 05/10/19 2:[address] Received a call from Dr. Vu that they do not want to accept the patient to [facility] today. States he would like to see her potassium level to be more stable. I notified Judd Bowen APN. I notified the patient and she states she will notify her family. CM will continue to follow and assist with discharge planning/needs. DCP- Discharge Planning Updated by [id number]: Marianne Hunter on 05/10/19 7:[address] Received discharge order. I notified Neva, but did not get a call back. I called [facility] and spoke with Estella, she states she will call back with a picking belt operator time. She will be discharging to a skilled (Medicare) bed. DC orders, updated clinical faxed to [facility]. DCP- Discharge Planning Updated by [id number]: Marianne Hunter on 05/09/19 7:[address] [facility] DCP- Discharge Planning Updated by [id number]: Lauren Krueger on 05/07/19 12:[address] LATE ENTRY 1315 CM RECEIVED TC FROM TAMISHA. DOMINGUEZ REGARDING STATUS OF TRANSFER REQUEST FOR NEUROLOGY SERVICES. TC TO EASY ADMIT. SPOKE TO LUCILLE. SHE STATES THE DOCUMENTATION INDICATES THAT DR DIAZ CANCELLED THE TRANSFER AT 1750 WITH CATHY. ARRANGEMENTS HAD BEEN MADE FOR HIM TO SPEAK WITH A DR MURPHY. DCP- Discharge Planning Updated by [id number]: Marianne Hunter on 05/06/19 10:[address] Patient Name: MARYLOU MURRAY Admission Status: ER Accout number: [id number] Admission Date: 05-05-2019 : 1955 Admission Diagnosis: Attending: SOCORRO DIAZ Current LOS: 1 Anticipated DC Date: 05-06-2019 Planned Disposition: Acute Care Hospital Primary Insurance: MEDICARE A & B Discharge Planning Comments: CM received orders to transfer to another hospital for neurology. I* spoke with patient and her son and they request [facility]. I spoke with Blanche, halfway house counselor, she approves. I called Transfer center and spoke with Rosita and clinical and face sheet faxed. GARTH Colon, to get a disc of images and Nena, flower picker, to get the COBRA form and ambulance form. CM will continue to follow and assist with discharge planning/needs. Barrel Maker: Marianne Hunter DCPIA - Discharge Planning Initial Assessment Updated by [email or web address]: Marianne Hunter on 05/06/19 12:38 pm * Is the patient Alert and Oriented? Yes * How many steps to enter\exit or inside your home? 0/0 * PCP Miguel Angel Burger * Pharmacy [facility] * Preadmission Environment [facility] * Facility Name [facility] * ADLs Partial Dependent * Partial ADLs (Assistance needed) Ambulation * Equipment Shower Chair Walker * List name and contact numbers for known caregivers / representatives who currently or will assist patient after discharge: Ajit Conklin Arti Jose - son [phone] Tim sp - [phone] * Verbal permission to speak to the caregivers and representatives has been obtained from the patient. Yes * Community resources currently utilized None * Additional services required to return to the preadmission environment? Yes * Can the patient safely return to the preadmission environment? Yes * Has this patient been hospitalized within the prior 30 days at any hospital? Yes Coverage Notice Reviewer: [id number] Arti Hunter Notice Issued Date-Time: 05/06/2019 12:44 Notice Type: Patient Choice Letter Notice Delivered To: Patient Relationship to Patient: Self Telecommunication Equipment Repairer Name: Delivery Method: HAND - Hand Delivered Elizabeth Days: Prior Verbal Notification: Recipient Understood Notice: Yes Recipient Signature: Yes Med Rec Note Co-signed by Attending: Coverage Notice Comment: Navdeep Reviewer: [id number] Arti Hunter Notice Issued Date-Time: 05/10/2019 9:01 Notice Type: IM Discharge Notice Notice Delivered To: Patient Relationship to Patient: Self Telecommunication Equipment Repairer Name: Delivery Method: HAND - Hand Delivered Elizabeth Days: Prior Verbal Notification: Recipient Understood Notice: Yes Recipient Signature: Yes Med Rec Note Co-signed by Attending: Coverage Notice Comment: IMM explained, signed, given and copy placed in MR Last DP export: 05/10/19 2:26 p Patient Name: MARYLOU MURRAY Page [id number] at 0925 All edits/amendments must be made on the electronic document DICTATION DATE: 05/11/19924 [employer] TEACHER: BIENVENIDO 05/11/19924 RPT#: [id number] DC DATE: STATUS: ADM IN [facility] [address] [place] [address] END OF REPORT
[2019-05-11 09:32] VITALS: BP 119/56
--- NOTE | 2019-05-11 10:45 | MORECARE ---
CASE MANAGEMENT DISCHARGE SUMMARY PATIENT: MARYLOU MURRAY UNIT: [id number] ADM DATE: 05/06/19 AGE: 64 : 53 SEX: F ROOM/BED: D.2234 AUTHOR: GOMEZ SHERIFF PHYSICIAN: REFERRING PHYSICIAN: ANDRÉS DIAZ MD DATE OF SERVICE: 05/11/19 Discharge Plan Patient Name: MARYLOU MURRAY Facility: [facility]:[place] : 1955 Planned Disposition: Acute Care Hospital Anticipated Discharge Date: 05/06/19 Discharge Date: Expected LOS: 1 Initial Reviewer: [email or web address] Initial Review Date: 05/05/2019 Generated: 05/11/19 11:45 am Comments DCP- Discharge Planning Updated by [email or web address]: Marianne Hunter on 05/11/19 9:[address] Discharging to a skilled (Medicare) bed at [facility], cotton picker at 11:15. Clinical faxed to [facility] and spoke with Luis. DCP- Discharge Planning Updated by [id number]: Marianne Hunter on 05/11/19 8:[address] Received a call from Luis Sethi states they will accept the patient today. Luis will get me a cotton picker time. Clinical faxed. Judd notified. DCP- Discharge Planning Updated by [id number]: Marianne Hunter on 05/10/19 2:[address] Received a call from Dr. Vu that they do not want to accept the patient to [facility] today. States he would like to see her potassium level to be more stable. I notified Judd Bowen APN. I notified the patient and she states she will notify her family. CM will continue to follow and assist with discharge planning/needs. DCP- Discharge Planning Updated by [id number]: Marianne Hunter on 05/10/19 7:[address] Received discharge order. I notified Neva, but did not get a call back. I called [facility] and spoke with Estella, she states she will call back with a cotton picker time. She will be discharging to a skilled (Medicare) bed. DC orders, updated clinical faxed to [facility]. DCP- Discharge Planning Updated by [id number]: Marianne Elsa on 05/09/19 7:[address] UPDATED CLINICAL FAXED TO [facility]. DCP- Discharge Planning Updated by [id number]: Lauren Krueger on 05/07/19 12:[address] LATE ENTRY 1315 CM RECEIVED TC FROM TAMISHA. DOMINGUEZ REGARDING STATUS OF TRANSFER REQUEST FOR NEUROLOGY SERVICES. TC TO EASY ADMIT. SPOKE TO LUCILLE. SHE STATES THE DOCUMENTATION INDICATES THAT DR DIAZ CANCELLED THE TRANSFER AT 1750 WITH [facility]ATH[facility]. ARRANGEMENTS HAD BEEN MADE FOR HIM TO SPEAK WITH A DR MURPHY. DCP- Discharge Planning Updated by [id number]: Marianne Elsa on 05/06/19 10:[address] Patient Name: MARYLOU MURRAY Admission Status: ER Accout number: [id number] Admission Date: 05-05-2019 : 1955 Admission Diagnosis: Attending: SOCORRO DIAZ Current LOS: 1 Anticipated DC Date: 05-06-2019 Planned Disposition: Acute Care Hospital Primary Insurance: MEDICARE A & B Discharge Planning Comments: CM received orders to transfer to another hospital for neurology. I* spoke with patient and her son and they request [facility]. I spoke with Blanche, house principal, she approves. I called Transfer center and spoke with Rosita and clinical and face sheet faxed. GARTH Colon, to get a disc of images and Nena, clinical administrative coordinator, to get the COBRA form and ambulance form. CM will continue to follow and assist with discharge planning/needs. Hydraulic Repairer: Marianne Hunter DCPIA - Discharge Planning Initial Assessment Updated by [email or web address]: Marianne Hunter on 05/06/19 12:38 pm * Is the patient Alert and Oriented? Yes * How many steps to enter\exit or inside your home? 0/0 * PCP Miguel Angel Burger * Pharmacy [facility] * Preadmission Environment [facility] Facility * Facility Name [facility] * ADLs Partial Dependent * Partial ADLs (Assistance needed) Ambulation * Equipment Shower Chair Walker * List name and contact numbers for known caregivers / representatives who currently or will assist patient after discharge: Ajit Conklin Arti Jose - son [phone] Tim [facility] - [phone] * Verbal permission to speak to the caregivers and representatives has been obtained from the patient. Yes * Community resources currently utilized None * Additional services required to return to the preadmission environment? Yes * Can the patient safely return to the preadmission environment? Yes * Has this patient been hospitalized within the prior 30 days at any hospital? Yes Coverage Notice Reviewer: [id number] Arti Hunter Notice Issued Date-Time: 05/06/2019 12:44 Notice Type: Patient Choice Letter Notice Delivered To: Patient Relationship to Patient: Self Power Project Manager Name: Delivery Method: HAND - Hand Delivered Elizabeth Days: Prior Verbal Notification: Recipient Understood Notice: Yes Recipient Signature: Yes Med Rec Note Co-signed by Attending: Coverage Notice Comment: Navdeep Reviewer: [id number] Arti Hunter Notice Issued Date-Time: 05/10/2019 9:01 Notice Type: IM Discharge Notice Notice Delivered To: Patient Relationship to Patient: Self Power Project Manager Name: Delivery Method: HAND - Hand Delivered Elizabeth Days: Prior Verbal Notification: Recipient Understood Notice: Yes Recipient Signature: Yes Med Rec Note Co-signed by Attending: Coverage Notice Comment: IMM explained, signed, given and copy placed in MR Last DP export: 05/11/19 8:25 a Patient Name: MARYLOU MURRAY Page [id number] at 1045 All edits/amendments must be made on the electronic document DICTATION DATE: 05/11/19 1045 CARDIAC RN: BIENVENIDO 05/11/19 1045 RPT#: [id number] DC DATE: STATUS: ADM IN [facility] [address] [place] [address] END OF REPORT
--- NOTE | 2019-05-11 11:14 | NUR ---
DISCHARGED PATIENT TO [facility] WITH STAFF. LEAVING WITH PICC FOR IV ANTIBIOTICS. WENT OVER DISCHARGE INSTRUCTIONS WITH PATIENT, VERBALIZED UNDERSTANDING. CALLED REPORT TO DOUGLAS AT [facility]. DENIES ANYTHING FURTHER.
--- NOTE | 2019-05-12 13:52 | MORECARE ---
CASE MANAGEMENT DISCHARGE SUMMARY PATIENT: MARYLOU MURRAY UNIT: [id number] ADM DATE: 05/06/19 AGE: 64 : 53 SEX: F ROOM/BED: D.2234 AUTHOR: GOMEZ SHERIFF PHYSICIAN: REFERRING PHYSICIAN: ANDRÉS DIAZ MD DATE OF SERVICE: 05/12/19 Discharge Plan Patient Name: MARYLOU MURRAY Facility: [facility]:[place] : 1955 Planned Disposition: Acute Care Hospital Anticipated Discharge Date: 05/06/19 Discharge Date: 05/11/2019 Expected LOS: 1 Initial Reviewer: [id number] Initial Review Date: 05/05/2019 Generated: 05/12/19 2:51 pm Comments DCP- Discharge Planning Updated by [id number]: Marianne Hunter on 05/11/19 9:[address] Discharging to a skilled (Medicare) bed at [facility], leaf size picker at 11:15. Clinical faxed to [facility] and spoke with Luis. DCP- Discharge Planning Updated by [id number]: Marianne Hunter on 05/11/19 8:[address] Received a call from Luis Sethi states they will accept the patient today. Luis will get me a leaf size picker time. Clinical faxed. Judd notified. DCP- Discharge Planning Updated by [id number]: Marianne Hunter on 05/10/19 2:[address] Received a call from Dr. Vu that they do not want to accept the patient to [facility] today. States he would like to see her potassium level to be more stable. I notified Judd Bowen APN. I notified the patient and she states she will notify her family. CM will continue to follow and assist with discharge planning/needs. DCP- Discharge Planning Updated by [id number]: Marianne Hunter on 05/10/19 7:[address] Received discharge order. I notified Neva, but did not get a call back. I called [facility] and spoke with Estella, she states she will call back with a leaf size picker time. She will be discharging to a skilled (Medicare) bed. DC orders, updated clinical faxed to [facility]. DCP- Discharge Planning Updated by [id number]: Marianne Hunter on 05/09/19 7:[address] [facility]PD[facility] CLINICAL [facility]. DCP- Discharge Planning Updated by [id number]: Lauren Krueger on 05/07/19 12:[address] LATE ENTRY 1315 CM RECEIVED TC FROM [facility]. CONSTRUCTION EQUIPMENT TECHNICIAN REGARDING STATUS OF TRANSFER REQUEST FOR NEUROLOGY SERVICES. TC TO EASY ADMIT. SPOKE TO [facility]. SHE STATES THE DOCUMENTATION INDICATES THAT DR DIAZ CANCELLED THE TRANSFER AT 1750 WITH CATHY. ARRANGEMENTS HAD BEEN MADE FOR HIM TO SPEAK WITH A DR MURPHY. DCP- Discharge Planning Updated by [id number]: Marianne Hunter on 05/06/19 10:[address] Patient Name: MARYLOU MURRAY Admission Status: ER Accout number: [id number] Admission Date: 05-05-2019 : 1955 Admission Diagnosis: Attending: SOCORRO DIAZ Current LOS: 1 Anticipated DC Date: 05-06-2019 Planned Disposition: Acute Care Hospital Primary Insurance: MEDICARE A & B Discharge Planning Comments: CM received orders to transfer to another hospital for neurology. I* spoke with patient and her son and they request [facility]. I spoke with Blanche, oil house attendant, she approves. I called Transfer center and spoke with Rosita and clinical and face sheet faxed. GARTH Colon, to get a disc of images and Nena, loss prevention coordinator, to get the COBRA form and ambulance form. CM will continue to follow and assist with discharge planning/needs. Data Quality Consultant: Marianne Hunter DCPIA - Discharge Planning Initial Assessment Updated by [id number]: Marianne Hunter on 05/06/19 12:38 pm * Is the patient Alert and Oriented? Yes * How many steps to enter\exit or inside your home? 0/0 * PCP Miguel Angel Burger * Pharmacy [facility] * Preadmission Environment [facility] * Facility Name [facility] * ADLs Partial Dependent * Partial ADLs (Assistance needed) Ambulation * Equipment Shower Chair Walker * List name and contact numbers for known caregivers / representatives who currently or will assist patient after discharge: Ajit Conklin Arti Jose - son [phone] Tim [facility] - [phone] * Verbal permission to speak to the caregivers and representatives has been obtained from the patient. Yes * Community resources currently utilized None * Additional services required to return to the preadmission environment? Yes * Can the patient safely return to the preadmission environment? Yes * Has this patient been hospitalized within the prior 30 days at any hospital? Yes Coverage Notice Reviewer: [id number] Arti Hunter Notice Issued Date-Time: 05/06/2019 12:44 Notice Type: Patient Choice Letter Notice Delivered To: Patient Relationship to Patient: Self Bicycle Repairer Name: Delivery Method: HAND - Hand Delivered Elizabeth Days: Prior Verbal Notification: Recipient Understood Notice: Yes Recipient Signature: Yes Med Rec Note Co-signed by Attending: Coverage Notice Comment: Navdeep Reviewer: [id number] Arti Hunter Notice Issued Date-Time: 05/10/2019 9:01 Notice Type: IM Discharge Notice Notice Delivered To: Patient Relationship to Patient: Self Bicycle Repairer Name: Delivery Method: HAND - Hand Delivered Elizabeth Days: Prior Verbal Notification: Recipient Understood Notice: Yes Recipient Signature: Yes Med Rec Note Co-signed by Attending: Coverage Notice Comment: IMM explained, signed, given and copy placed in MR Last DP export: 05/11/19 9:45 a Patient Name: MARYLOU MURRAY Page [id number] at 1352 All edits/amendments must be made on the electronic document DICTATION DATE: 05/12/19 1351 CLIENT RETENTION SPECIALIST: BIENVENIDO 05/12/19 1351 RPT#: [id number] DC DATE:05/11/19 STATUS: DIS IN [facility] [address] [place] [address] END OF REPORT
== END 2019-05-11 11:16 | DRG 100 ==
LOC: D.ER 15:23 → D.MS 19:17 → OBSVTIME 19:17 → D.MS 05-06 13:49
PROVIDERS: Family Medicine; Internal Medicine Nephrology; ADMIT Emergency Medicine; ATTEND Emergency Medicine
DX: G40.909 Epilepsy, unspecified, not intractable, without status epilepticus (principal); J18.9 Pneumonia, unspecified organism; E43 Unspecified severe protein-calorie malnutrition; I63.9 Cerebral infarction, unspecified; E87.1 Hypo-osmolality and hyponatremia; N17.9 Acute kidney failure, unspecified; I50.32 Chronic diastolic (congestive) heart failure; D64.9 Anemia, unspecified; E03.9 Hypothyroidism, unspecified; E87.6 Hypokalemia; E83.42 Hypomagnesemia; K74.5 Biliary cirrhosis, unspecified

== ENCOUNTER 2019-10-24 17:32 | Inpatient (IN) | payer MEDICARE, BC ==
[~2019-10-24] VITALS: Ht 154.9 cm; Wt 80.7 kg
--- NOTE | ~2019-10-24 | HEMODYNAMI ---
PATIENT:MARYLOU MURRAY MEDICAL RECORD: [id number] : 53 LOCATION:[facility] D.2113 ADMISSION DATE: 10/24/19 Generatedon:10/26/201911:53 Patient name: MARYLOU MURRAY Patient #: [id number] SSN: [id number] : 1955 Date of study: 10/26/2019 Page: Of Hemodynamic Procedure Report Patient Data Patient Demographics Procedure consent was obtained First Name: MARYLOU Gender: Female Last Name: TERRI : 1955 Patient #: [id number] Age: 64 year(s) Race: Unknown SSN: [id number] Additional ID: [id number] Contact details Address: [address] [place] [address] ROAD State: [place] City: [place] Zip code: [address] Past Medical History Allergies Allergen Reaction Date Comments Reported Other allergy 10/26/2019 cipro, levofloxacin Admission Admission Data Admission Date: 10/24/2019 Admission Time: 17:32 Arrival Date: 10/26/2019 Arrival Time: 0:00 Admit Source: Other Insurance Payor: Medicare Room #: D.2113 [facility] #: [id number] Height (in.): 60.63 BSA: 1.74 (m2) Height (cm.): 154 BMI: 32.05 (kg/m2) Weight (lbs.): 167.55 Weight (kg.): 76 Lab Results Lab Result Date: 10/26/2019 Lab Result Time: 0:00 Biochemistry Name Units Result Min Max BUN mg/dl 22 --(----)-* 7 18 Creatinine mg/dl 1.4 --(----)*- 0.6 1.3 eGFR ml/min 40 *-(----)-- 90 120 NONAFRICAN CBC Name Units Result Min Max Hemoglobin g/dl 11.9 *-(----)-- 13.5 17.5 Procedure Procedure Types Cath Procedure Diagnostic Procedure [facility] w/Coronaries Cardioversion External Sedation Charges Moderate Sedation up to 15 minutes Procedure Description Procedure Date Procedure Date: 10/26/2019 Procedure Start Time: 11:24 Procedure End Time: 11:51 Procedure Staff Name Function Roel Larson MD Performing Physician Charlotte Burton RT Monitor Arelis Torre RN Nurse Cordelia Baptiste RT Scrub Maren Ross RT Monitor Indication CHF Procedure Data Cath Procedure Fluoroscopy Diagnostic fluoroscopy Total fluoroscopy Time: 6 time: 6 min min Diagnostic fluoroscopy Total fluoroscopy dose: 831 dose: 831 mGy mGy Contrast Material Contrast Material Type Amount (ml) Isovue 300 58 Entry Location Entry Primary Successful Side Size Upsize Upsize Entry Closure Succes sful Closure Location (Fr) 1 (Fr) 2 (Fr) Remarks Device Remarks Femoral Right 5 Fr Exoseal artery Estimated blood loss: 5 ml Diagnostic catheters Device Type Used For End Catheter Placement MULTIPACK JL 4.0 5Fr Procedure catheter MULTIPACK 3DRC 5Fr Procedure catheter MULTIPACK Pigtail 5 Fr Procedure catheter Procedure Complications No complications Procedure Medications Medication Administration Route Dosage 0.9% NaCl I.V. 100 ml/hr Oxygen etCO2 Nasal cannula 2 l/min Lidocaine 2% added to field 20 Heparin Flush Bag added to field 2 bags (1000units/500ml NS) Versed I.V. 2 mg Amiodarone Loading I.V. drip 150 mg Dose (150mg/100ml D5W) Fentanyl I.V. 50 mcg Versed I.V. 1 mg Fentanyl I.V. 50 mcg Hemodynamics Rest BSA: 1.74 (m2) HGB: 11.9 (g/dl) O2 Consumption: Estimated: 202.63 (ml/min) O2 Co nsumption indexed: Estimated:116.45 (ml/min/m) Heart Rate: 131 (bpm) Pressure Samples Time Site Value (mmHg) Purpose Heart Use Rate(bpm) 11:36 LV 76/15,15 Snapshot 116 Gradients Valve Time Site Site Mean SEP/DFP Peak To Heart Use 1 2 (mmHg) (sec/min) Peak Rate (mmHg) (bpm) Aortic 11:37 LV AO 116 Snapshots Pre Cath Intra NCS Post Cath Vital Signs Time Heart Resp SPO2 etCO2 NIBP Rhythm Pain Sedation Rate (ipm) (%) (mmHg) (mmHg) Status Level (bpm) 11:10:31 132 17 97 0 118/63(74) A-Flutter 0 (11) 10(A) , No pain 11:14:45 131 12 98 19.4 105/65(81) A-Flutter 0 (11) 10(A) , No pain 11:18:47 131 26 98 24 108/65(80) A-Flutter 0 (11) 10(A) , No pain 11:22:58 130 23 98 18.7 118/60(87) A-Flutter 0 (11) 10(A) , No pain 11:27:58 126 21 97 21.7 Measuring A-Flutter 0 (11) 10(A) , No pain 11:28:28 126 27 98 22.4 95/61(75) A-Flutter 0 (11) 10(A) , No pain 11:32:36 121 29 98 26.2 95/53(81) A-Flutter 0 (11) 10(A) , No pain 11:36:44 117 33 95 16.5 93/54(73) A-Flutter 0 (11) 10(A) , No pain 11:40:48 119 23 100 21.7 100/66(80) A-Flutter 0 (11) 10(A) , No pain 11:44:13 71 23 99 20.9 90/54(73) NSR 0 (11) 10(A) , No pain 11:48:20 72 52 99 26.2 84/54(67) NSR 0 (11) 10(A) , No pain Medications Time Medication Route Dose Verified Delivered Reason Notes Eff ectiveness by by 11:09:32 0.9% NaCl I.V. 100 Roel Arelis used for ml/hr Neo Incho procedure RN 11:09:38 Oxygen etCO2 2 Roel Arelis used for Nasal l/min Neo Nicho procedure cannula RN 11:09:44 Lidocaine 2% added 20ml Roel Roel [facility] MIL[facility] 11:09:48 Heparin Flush added 2 Roel Roel used for Bag to bags Neo Neo procedure (1000units/500ml field MD MILNER NS) 11:23:25 Versed I.V. 2 mg Roel Arelis for Neo Nicho sedation MD ISRAEL 11:27:34 Amiodarone I.V. 150 Roel Infante for Loading Dose drip mg [facility] Willie Torre arrhythmia (150mg/100ml MD ISRAEL D5W) 11:36:17 Fentanyl I.V. 50 Roel Infante for mcg [facility] Willie Torre sedation MD ISRAEL 11:40:27 Versed I.V. 1 mg Roel Infante for [facility] Willie simmons MD, RN 11:40:38 Fentanyl I.V. 50 Roel Infante for [facility] Willie Torre sedation MD ISRAELgraphics artist Log Time Note 10:38:28 Arrival Date: 10/26/2019 12:00:00 AM 10:38:29 Admit Source: Other 10:38:33 Insurance Payor : Medicare 10:39:05 Patient Height : 60.63 inches 10:39:09 Patient Weight : 167.55 lbs 10:40:19 Lab Result : Hemoglobin 11.9 g/dl 10:40:19 Lab Result : eGFR NONAFRICAN 40 ml/min 10:40:19 Lab Result : BUN 22 mg/dl 10:40:19 Lab Result : Creatinine 1.4 mg/dl 10:40:29 Diagnostic Cath Status : Urgent 10:41:12 Indication : CHF 10:41:22 Procedure Status Urgent Heart Cath (IP). 10:41:25 Arelis Torre RN sent for patient. Start room use. 10:41:34 Time tracking: Regular hours (M-F 7:00 - 5:00) 10:41:39 Plan of Care:Hemodynamics will remain stable., Cardiac rhythm will remain stable., Comfort level will be maintained., Respiratory function will remain adequate., Patient/ family verbilizes understanding of procedure., Procedure tolerated without complication., Recovers from procedure without complications.. 10:41:47 Patient received from Med II to CCL 1 Alert and oriented. Tansferred to table in Supine position. 10:41:50 Signed procedure consent form obtained from patient. 10:45:12 Warm blankets applied, and delta hugger turned on for patient comfort. 10:45:14 Correct patient and procedure confirmed by team. 10:48:21 H&P Date Dictated: 10/26/2019 Within 30 days and on chart., H&P Addendum completed by physician on day of procedure. (MUST COMPLETE FOR ALL OUTPATIENTS). 10:48:23 Pre-procedure instructions explained to patient. 10:48:31 Family in patients room. 10:48:33 Patient NPO since Midnight. 10:49:09 Patient allergic to Other allergycipro, levofloxacin 10:49:18 Is the patient allergic to Iodine/contrast media? No. 10:49:20 Was the patient premedicated? Yes 10:59:46 Pre-op teaching completed and patient verbalized understanding. 11:00:14 IV left forearm D/C'd due to infiltration. 11:00:31 IV started by Arelis Torre RN inright hand with a 22 gauge IV catheter with 0.9% NaCl at KVO. 11:09:24 Vital chart was started 11:09:32 0.9% NaCl 100 ml/hr I.V. was administered by Arelis Torre RN; used for procedure; Verbal order read back and verified. 11:09:38 Oxygen 2 l/min etCO2 Nasal cannula was administered by Arelis Torre RN; used for procedure; Verbal order read back and verified. 11:09:44 Lidocaine 2% 20ml vial added to field was administered by Roel Larson MD; for local anesthetic; Verbal order read back and verified. 11:09:48 Heparin Flush Bag (1000units/500ml NS) 2 bags added to field was administered by Roel Larson MD; used for procedure; Verbal order read back and verified. 11:14:08 PATIENT LOADED ON PLAVIX 8.25.20 IN THE A.M. 11:16:24 Patient diabetic? No. 11:16:27 Previous problem with sedation/anesthesia? No ? 11:16:29 Snore? No 11:16:30 Sleep apnea? No 11:16:30 Deviated septum? No 11:16:31 Opens mouth fully? Yes 11:16:32 Sticks out tongue? Yes 11:16:51 Airway obstruction? No ? 11:16:57 Dentures? No OUT 11:17:02 Pre procedure: right dorsailis pedis pulse 1+ Palpable, but thready & weak; easily obliterated 11:17:10 Right groin area was prepped with chlora-prep and draped in sterile fashion 11:17:11 Alarms reviewed by R. N. 11:17:11 Sharps counted by scrub and verified by R.N. 11:22:18 Lab results completed and on chart. 11:22:27 Physician arrived 11::28 --------ALL STOP TIME OUT------ 11:22:36 Final Timeout: patient, procedure, and site verified with staff and physician. All members of the team are in agreement. 11:22:39 Right groin site verified by team. 11:22:44 Fire Safety Assessment: A--An alcohol-based skin anteseptic being used preoperatively., C--Open oxygen or nitrous oxide is being used., D--An ESU, laser, or fiber-optic light is being used. 11:23:25 Versed 2 mg I.V. was administered by Arelis Torre RN; for sedation; Verbal order read back and verified. 11:23:30 Physical assessment completed. ASA score P 4 - A patient with severe systemic disease that is a constant threat to life as per Roel Larson MD. 11:23:35 Sedation plan: IV Moderate Sedation Medication:Versed, Fentanyl 11:23:47 Procedure started. 11:23:47 Full Disclosure recording started 11:23:53 Use device set Femoral Dx 11:23:54 ACIST Syringe (50121) opened to sterile field. 11:23:54 Bag Decanter (2002S) opened to sterile field. 11:24:06 ACIST Hand Control (90173) opened to sterile field. 11:24:06 ACIST Manifold (06822) opened to sterile field. 11:24:07 Tegaderm 4 x 4 (1626W) opened to sterile field. 11:24:22 Local anesthetic to right femoral artery with Lidocaine 2% by Roel Larson MD.INITIAL ACCESS ONLY 11:24:30 Medline Cath Pack ([id number]) opened to sterile field. 11:24:31 DIAGNOSTIC Multipack 5Fr catheter set (LE0601) opened to sterile field. 11:24:34 SHEATH 5FR [place] (GHQ729) opened to sterile field. 11:24:35 EMERALD Guide Wire (672-617) opened to sterile field. 11:24:52 A 5 Fr sheath was inserted into the Right Femoral artery 11:24:56 Baseline sample Acquired. 11:25:01 Rhythm: atrial flutter 11:25:12 A MULTIPACK JL 4.0 5Fr catheter was advanced over the wire and used for Procedure. 11:26:06 LCA angiography performed. 11:26:50 Catheter removed. 11:27:17 A MULTIPACK 3DRC 5Fr catheter was advanced over the wire and used for Procedure. 11:27:34 Amiodarone Loading Dose (150mg/100ml D5W) 150 mg I.V. drip was administered by Arelis Torre RN; for arrhythmia; Verbal order read back and verified. 11:28:30 GLIDE WIRE ANGLE 260cm (CG6965) opened to sterile field. 11:28:44 GLIDE WIRE USED TO ADVANCE 3DRC 11:34:05 RCA angiography performed. 11:34:22 Catheter exchanged over wire. 11:34:32 A MULTIPACK Pigtail 5 Fr catheter was advanced over the wire and used for Procedure. 11:35:43 LV gram done using RICARDO 11:35:44 Injector settings: Ml/sec: 10, Volume: 20, 11:36:17 Fentanyl 50 mcg I.V. was administered by Arelis Torre RN; for sedation; Verbal order read back and verified. 11:36:47 LV hemodynamics recorded. 11:37:10 EF : 55 % 11:38:14 Catheter removed. 11:38:15 ------Cardioversion------ 11:38:17 Quick Combo opened to sterile field. 11:38:23 Quick combo pads placed on patients chest and back. 11:39:48 Defibrillator synced and charged to 50 Joules. 11:40:27 Versed 1 mg I.V. was administered by Arelis Torre RN; for sedation; Verbal order read back and verified. 11:40:38 Fentanyl 50 mcg I.V. was administered by Arelis Torre RN; for sedation; Verbal order read back and verified. 11:41:14 Shock delivered. 11:41:34 Patient cardioverted to sinus rhythm . 11:42:04 EXOSEAL 5Fr (EX500) opened to sterile field. 11:42:20 Sheath removed intact; hemostasis achieved with Exoseal to the Right Femoral artery. 11:42:43 Fluoroscopy time 06.00 minutes. 11:42:46 Fluoroscopy dose: 831 mGy 11:42:46 Flurop Dose total: 831 11:42:52 Dose Area Product 45710 mGy/cm. 11:42:55 Contrast amount:Isovue 300 58ml. 11:42:57 Maximum allowable dose exceeded? No. 11:42:58 Sharps counted by scrub and verified by R.N. 11:43:06 Procedure ended.(Physican Out) 11:43:19 Post-op/insertion site Right Femoral artery dressed using a 4 x 4 and Tegaderm. 11:43:53 Post-procedure physical assessment completed. ASA score P 4 - A patient with severe systemic disease that is a constant threat to life as per Roel aLrson MD. 11:43:56 Post procedure rhythm: sinus rhythm 11:44:00 Estimated blood loss: 5 ml 11:44:02 Post procedure instruction explained to patient.Patient verbalizes understanding. 11:44:02 Patient needs reinforcement of post procedure teaching. 11:44:25 Procedure type changed to Cath procedure, Diagnostic procedure, LHC, LHC w/Coronaries, Cardioversion External, Sedation Charges, Moderate Sedation up to 15 minutes 11:46:10 Procedure and supply charges have been captured, reviewed, submitted and are correct. 11:48:30 Procedure Complication : No complications 11:48:35 [facility] Findings: mild to moderate CAD (<70%) 11:48:36 Operative report dictated upon procedure completion. 11:48:36 See physician's report for complete and final results. 11:51:27 Vital chart was stopped 11:51:30 Report given to [facility]. 11:51:35 Patient transfered to [facility] with Bed. 11:51:36 Procedure ended. 11:51:36 Full Disclosure recording stopped 11:51:42 End room use (Document Last) 11:52:29 End room use (Document Last) 11:52:50 End room use (Document Last) Device Usage Item Name Manufacture Quantity Catalog Hospital Part Current Minima l Lot# / Number Charge Number Stock Stock Serial# Code ACIST Acist 1 38812 217000 549113 721171 20 Syringe Medical (50688) Systems Inc Bag Microtek 1 139014 96774 461664 5 Decanter Medical Inc. () ACIST Hand Acist 1 86650 175468 323481 497694 5 Control Medical (24921) Systems Inc ACIST Acist 1 17780 573099 976559 852518 5 Manifold Medical (27422) Systems Inc Tegaderm 4 3M 1 1626W 189217 569553 325262 5 x 4 (1626W) Medline Medline 1 [id number] 938658 42233 111944 5 Cath Pack ([id number]) DIAGNOSTIC Cardinal 1 HX0077 332532 39408 440185 30 Multipack Health 5Fr catheter set (VM1105) SHEATH 5FR Terumo 1 YAF123 300834 630273 032823 5 [place] (RNF705) EMERALD Cardinal 1 502455 186572 857537 532284 5 Guide Wire Health (502455) MULTIPACK Cardinal 1 892073 5 JL 4.0 5Fr Health catheter MULTIPACK Cardinal 1 169064 5 3DRC 5Fr Health catheter GLIDE WIRE Terumo 1 KQ9056 050370 550309 894011 5 ANGLE 260cm (NC6246) MULTIPACK Cardinal 1 416138 5 Pigtail 5 Health Fr catheter Quick Combo Vatler Systems 1 52858-463627 026345 744636 671048 5 EXOSEAL 5Fr Cardinal 1 EX500 629533 625594 573910 10 (EX500) Health Signature Audit Bennett Stage Time Signature Unsigned Intra-Procedure 10/26/2019 Maren Ross 11:52:29 AM RT(R) Intra-Procedure 10/26/2019 Arelis Torre 11:52:50 AM RN Intra-Procedure 10/26/2019 Roel Hendricks 11:53:13 AM Willie MILNER [facility] [address] [place] [address]
[~2019-10-24 17:32] MED LIST changes: +ASPIRIN81 MG PO; +FUROSEMIDE20 MG PO; +KEPPRA750 MG PO; +VIBRAMYCIN50 MG PO
--- NOTE | 2019-10-24 18:00 | NUR ---
PATIENT RECIEVED TO ROOM WITH , ASSESSMENT COMPLETE. STABLE CONDITION.
[2019-10-24] MEDS ORDERED: ZOFRAN4 MG PO (18:14)
[2019-10-24] MEDS ORDERED: MUCINEX DM ER1 EAC1 PO (18:18)
[2019-10-24 18:20] VITALS: BP 107/61
[2019-10-24 19:37] LABS: MCHC 33.3 g/dL (31.0-37.0); MCV 89.9 fL (80.0-100.0); MEAN PLATELET VOLUME 9.8 fL (7.4-10.4); PLATELET COUNT 112 10x3/uL (130-400); RBC 4.34 10x6/uL (4.00-5.40); RDW 16.5 % (11.5-14.5); WBC 23.1 10x3/uL (4.8-10.8)
[2019-10-24 19:42] LABS: ANION GAP 11.9 mmol/L (8-16); BILIRUBIN - TOTAL 10.93 mg/dL (0.2-1.3); CARBON DIOXIDE 23.8 mmol/L (21.0-32.0); CREATININE - SERUM 1.6 mg/dL (0.6-1.3); POTASSIUM - SERUM 4.7 mmol/L (3.5-5.1); PROTEIN - SERUM 6.2 g/dL (6.4-8.2)
[2019-10-24 20:00] VITALS: BP 105/59
[2019-10-24 22:17] LABS: EOSINOPHILS 2 % (0-7); LYMPHOCYTES 8 % (15-50); MONOCYTES 3 % (2-11); NEUTROPHILS 87 % (40-80); PLATELET ESTIMATE DECREASED
[2019-10-24 22:21] LABS: BILIRUBIN NEGATIVE (NEGATIVE); KETONE NEGATIVE (NEGATIVE); NITRITE NEGATIVE (NEGATIVE); UROBILINOGEN NORMAL (NORMAL)
[2019-10-25] VITALS: BP 104/65
--- NOTE | 2019-10-25 00:51 | NUR ---
MYSELF AND TWO OTHER NURSES UNABLE TO ACQUIRE IV ACCESS. SPOKE WITH ANGELICA MCKINNEY AND HE REQUESTED THAT VASCULAR ACCESS BE CONSULTED. ORDER PUT IN. PT RESTING A/O X4 RR EVEN AND UNLABORED VITALS STABLE WITH AT BEDSIDE. PT DENIES ANY PAIN OR FURTHER NEEDS. BED LOW CALL LIGHT WITHIN REACH. WILL CONTINUE TO MONITOR.
[2019-10-25 01:52] LABS: CKMB 1.6 U/L (0.0-3.6); CREATINE KINASE 26 UL (21-215)
[2019-10-25 01:56] LABS: TROPONIN-I 20.208 ng/mL (0.000-0.060)
[2019-10-25 03:54] LABS: CKMB 5.2 U/L (0.0-3.6)
[2019-10-25 04:00] VITALS: BP 108/64
[2019-10-25 04:05] LABS: CREATINE KINASE 438 UL (21-215); TROPONIN-I 19.438 ng/mL (0.000-0.060)
--- NOTE | 2019-10-25 05:03 | NUR ---
PT JOEYONIN ELEVATED X2. EKG DONE AND IN CHART. CONSULT FOR CARDIOLOGY ORDER PLACED BY ANGELICA MCKINNEY. CARDIOLOGY PAGED. ANGELICA MCDONOUGH RESPONDED WITH NEW ORDERS. PT A/O X4 RR EVEN AND UNLABORED. PT PLACED ON TELEMETRY AT THIS TIME. TELE-125 ST PER HOE RUNNER. BP-108/64 O2-94%. PT DENIES ANY CHEST PAIN AT THIS TIME. BED LOW CALL LIGHT WITHIN REACH. WILL CONTINUE TO MONITOR. AT BEDSIDE.
[2019-10-25 07:33] LABS: ALBUMIN 1.5 g/dL (3.4-5.0); ALKALINE PHOSPHATASE 164 U/L (30-120); ALT (SGPT) 13 U/L (10-68); BILIRUBIN - TOTAL 8.95 mg/dL (0.2-1.3); CALC OSMOLALITY 251 mosm/kg (275-300); CALCIUM 8.3 mg/dL (8.5-10.1); CARBON DIOXIDE 23.7 mmol/L (21.0-32.0); CHLORIDE - SERUM 96 mmol/L (98-107); CKMB 1.3 U/L (0.0-3.6); CREATINE KINASE 23 UL (21-215); CREATININE - SERUM 1.7 mg/dL (0.6-1.3); GLUCOSE 81 mg/dL (74-106); MAGNESIUM - SERUM 1.5 mg/dL (1.8-2.4); PHOSPHOROUS 3.9 mg/dL (2.5-4.9); POTASSIUM - SERUM 4.9 mmol/L (3.5-5.1); SODIUM 124 mmol/L (136-145); UREA NITROGEN 21 mg/dL (7-18); eGFR NON AFRICAN AMERICAN 32 mL/min (90-120)
[2019-10-25 07:37] LABS: PRO BNP 32585 pg/mL (0-125); TROPONIN-I 17.724 ng/mL (0.000-0.060)
[2019-10-25 07:52] LABS: BASOPHILS 0 % (0-2); EOSINOPHILS 0.5 % (0-7); HEMATOCRIT 31.8 % (36.0-48.0); HEMOGLOBIN 10.6 g/dL (12-16); IMMATURE GRANULOCYTES 1.2 % (0-5); LYMPHOCYTES 5.9 % (15-50); MCH 29.7 pg (26.0-34.0); MCHC 33.3 g/dL (31.0-37.0); MCV 89.1 fL (80.0-100.0); MEAN PLATELET VOLUME 9.6 fL (7.4-10.4); MONOCYTES 7.7 % (2-11); NEUTROPHILS 84.7 % (40-80); PLATELET COUNT 109 10x3/uL (130-400); RBC 3.57 10x6/uL (4.00-5.40); RDW 16.4 % (11.5-14.5); WBC 20.6 10x3/uL (4.8-10.8)
[2019-10-25 07:56] LABS: INR 1.53 (0.85-1.17); PROTIME 18.3 SECONDS (11.6-15.0)
[2019-10-25 09:36] VITALS: BP 100/53
[2019-10-25 12:31] VITALS: BMI 32.0
[2019-10-25 13:39] VITALS: BP 98/48
[2019-10-25 14:52] LABS: CKMB 1.5 U/L (0.0-3.6); CREATINE KINASE 27 UL (21-215)
[2019-10-25 14:53] LABS: TROPONIN-I 20.341 ng/mL (0.000-0.060)
[2019-10-25 19:13] LABS: BILIRUBIN NEGATIVE (NEGATIVE); KETONE NEGATIVE (NEGATIVE); NITRITE NEGATIVE (NEGATIVE); UROBILINOGEN NORMAL (NORMAL)
[2019-10-25 20:00] VITALS: BP 100/50
--- NOTE | 2019-10-25 20:00 | NUR ---
REPORT RECEIEVED, WILL CONT POC. PT A&O, UP IN BED WITH AT BEDSIDE. NO S/S OF DISTRESS OBSERVED. RR EVEN AND UNLABORED ON 2L OF O2 VIA NC. PT FEELS WEAK AND TIRED. REPORTS FEELING NAUSEATED. REQUESTED AMBIEN AND ZOFRAN. PT IS IN A FLUTTER WITH PULSE OF 133. DR. FRYE INSTRUCTED TO HOLD LASIX, SPIRONALACTONE, AND RESPIRATORY MEDS THAT CONTAINED ALBUTEROL IN AN ATTEMPT TO LOWER PTS HR. DR. FRYE WAS ALSO CONCERNED THAT SHE MAY BE DEHYDRATED. INSTRUCTED TO ENCOURAGE PT TO DRINK A LOT OF WATER BEFORE NPO AT MIDNIGHT. PT DENIES NEEDS AT THIS TIME. CALL LIGHT IN REACH, BED LOCKED AND LOWERED. ASSESSMENT COMPLETED AT THIS TIME. WILL CONT TO MONITOR.
[2019-10-26] VITALS (7 sets, daily range): BP systolic 91–169; BP diastolic 50–73
[2019-10-26 08:05] LABS: HEMATOCRIT 34.9 % (36.0-48.0); HEMOGLOBIN 11.9 g/dL (12-16); MCH 30.2 pg (26.0-34.0); MCHC 34.1 g/dL (31.0-37.0); MCV 88.6 fL (80.0-100.0); MEAN PLATELET VOLUME 9.6 fL (7.4-10.4); PLATELET COUNT 135 10x3/uL (130-400); RBC 3.94 10x6/uL (4.00-5.40); RDW 17.1 % (11.5-14.5); WBC 22.7 10x3/uL (4.8-10.8)
--- NOTE | 2019-10-26 08:18 | CN ---
PATIENT NAME:MARYLOU MURRAY MEDICAL RECORD: [id number] : 53 LOCATION:D. D.2113 ADMIT DATE: 10/24/19 ACCOUNT: [id number] CONSULTING PHYSICIAN: NU LU MD REFERRING PHYSICIAN: PAYAL CALVERT DO DATE OF CONSULTATION: 10/25/2019 HISTORY OF PRESENT ILLNESS: A 64-year-old female with history of seizure disorder, CHF, hypothyroidism, uterine carcinoma, depression, has been feeling poorly initially since April of this year when she developed meningitis. She was seen in the primary care office with volume overload. Had shortness of breath with minimal exertion and particularly lying flat, 2-pillow orthopnea. Denies fever, chills, specifically no chest pain. Noted to have elevated cardiac enzymes. Previous LV function was normal back in April of this year. We are asked to see her concerning her cardiovascular status. PAST MEDICAL HISTORY: Includes; 1. History of cirrhosis. 2. Hypertension. MEDICATIONS: Include Lasix 20 mg p.o. every day, potassium supplementation 40 mEq every day, Enmanuel 750 mg every day, doxycycline 50 every 12 hours. ALLERGIES: CIPRO AND LEVAQUIN. SOCIAL HISTORY: Lives with her . Nonsmoker, nondrinker. Typically, is able to take care of all her ADLs. No exercise program. REVIEW OF SYSTEMS: The patient reports easy bruising but reports no swollen glands. The patient reports no fever, no night sweats, no significant weight gain, no significant weight loss. No significant exercise tolerance. The patient reports no dry eyes, no irritation, no vision change. Patient reports no difficulty hearing and no ear pain. Patient reports no frequent nose bleeds or nose and sinus problems. Patient reports on arm pain on exertion. No shortness of breath while lying down. No history of heart murmur. Patient reports no cough, no wheezing or coughing up blood. Patient reports no abdominal pain, no vomiting. Normal appetite. No diarrhea and not vomiting blood. No nausea and no constipation. Patient reports no incontinence. No difficulty urinating. No hematuria. No increased frequency. Patient reports no muscle aches. No weakness, no arthralgias, no back pain. No swelling of the extremities. Patient reports no abnormal mole, no jaundice, no rashes. Reports no loss of consciousness. No weakness and no numbness. No seizures, dizziness, or headaches. The patient reports no depression, no sleep disturbance, feeling safe in a relationship and no alcohol abuse. Patient reports on fatigue. Reports no runny nose or sinus pressure. No itching, no hives, and no frequent sneezing. PHYSICAL EXAMINATION: GENERAL: Somewhat chronically ill-appearing, in no acute distress. VITAL SIGNS: Blood pressure 108/64, pulse 131 and regular. HEENT: Normocephalic, atraumatic. NECK: No JVD or bruit. HEART: Regular. LUNGS: Ross clear. ABDOMEN: Soft, nontender. CONSULT REPORT [id number] MARYLOU MURRAY EXTREMITIES: Pulses 2+. No edema. IMPRESSION: Probable non-ST elevation myocardial infarction. Difficult to say if this is a type 1 or type 2. We will need angiography. Currently, again has had no chest pain or ischemic sounding symptoms. Further recommendations based on the above. TRANSINT:[id number] Voice Confirmation ID: [id number] DOCUMENT ID: [id number] NU LU MD at 0818 CC: [id number] DICTATION DATE: 10/25/19 0849 BENDING ROLL HAND: 10/25/19 1105 ADM IN [facility] [address] [place] [id number]
--- NOTE | 2019-10-26 08:18 | EC ---
PATIENT:MARYLOU MURRAY DATE OF SERVICE: 10/24/19 SEX: F MEDICAL RECORD: [id number] DATE OF : 53 LOCATION:D.M2 D.211 AGE OF PATIENT: 64 ADMISSION DATE: 10/24/19 REFERRING PHYSICIAN: INTERPRETING PHYSICIAN: NU LU MD ECHOCARDIOGRAM REPORT ECHO CHARGES 4 ECHO COMPLETE Date: 10/25/19 CLINICAL DIAGNOSIS: NSTEMI ECHOCARDIOGRAPHIC MEASUREMENTS (adult normal given) AC root (d.<3.7cm) 2.8 cm LV Septum d (<1.2 cm> 1.2 cm Valve Excursion 1.3 cm LV Septum (systole) 1.8 cm Left Atria (s.<4.0cm> 4.6 cm LVPW d(<1.2cm) 1.3 cm RV (d.<2.3cm) 3.2 cm LVPW (sytole) 1.4 cm LV diastole(<5.6CM) 4.9 cm MV E-F(>70mm/sec) cm LV systole 3.4 cm LVOT Diameter 1.7 cm MV exc.(>10mm) cm Est.ejection fraction (50-75%) % DOPPLER: LVIT cm/sec A 47 cm/sec E 147 cm/sec LA cm/sec RVSP 39.5 mmHg LVOT 96 cm/sec AOP1/2T m/s Asc. Ao 257 cm/sec RVOT 76 cm/sec RA cm/sec PA 85 cm/sec AV Gradient Peak 26.4 mmHg AV Mean 14.8 mmHg AV Area 1.0 cm MV Gradient Peak 13.0 mmHg MV Mean 5.4 mmHg MV Area cm COMMENTS: Contact Lens Manufacturer: Jessica SHELL Relief Captain: 3 Dr. Smith TAPE# PACS Pericardial Effusion N DATE OF SERVICE: Adequate 2D, color flow imaging, spectral Doppler, and M-Mode. Mild LVH. LV internal dimension is normal. Wall motion is normal. EF is greater than or equal to 55%. Aortic valve is sclerotic with elevated velocities 26 mmHg putting this in very mild range. Left atrium is dilated at 4.6 cm. Mitral valve shows no prolapse. Moderate MR. Right-sided chambers are grossly normal. Moderate TR. ECHOCARDIOGRAM REPORT [id number] MARYLOU MURRAY TRANSINT:[id number] Voice Confirmation ID: [id number] DOCUMENT ID: [id number] NU LU MD at 0818 CC: [id number] DICTATION DATE: 10/25/19 160 GASOLINE ENGINE ASSEMBLER: 10/25/192047 ADM IN [place] [id number] [place] [id number]
[2019-10-26 08:28] LABS: EOSINOPHILS 1 % (0-7); LYMPHOCYTES 3 % (15-50); MONOCYTES 14 % (2-11); NEUTROPHILS 81 % (40-80); PLATELET ESTIMATE DECREASED
[2019-10-26 08:49] LABS: ALBUMIN 1.7 g/dL (3.4-5.0); ANION GAP 15.9 mmol/L (8-16); BILIRUBIN - TOTAL 10.3 mg/dL (0.2-1.3); CALCIUM 8.3 mg/dL (8.5-10.1); CARBON DIOXIDE 20.1 mmol/L (21.0-32.0); CREATININE - SERUM 1.4 mg/dL (0.6-1.3); MAGNESIUM - SERUM 1.7 mg/dL (1.8-2.4); PHOSPHOROUS 3.7 mg/dL (2.5-4.9); PROTEIN - SERUM 5.5 g/dL (6.4-8.2)
[2019-10-26 09:43] LABS: CHOL - HDL RATIO 9.3 ratio (2.3-4.1); LDL-HDL RATIO 4.1 ratio (1.5-3.5)
--- NOTE | 2019-10-26 20:35 | NUR ---
REPORT RECEIVED, WILL CONT POC. PT TOILETING WITH AT SIDE. NO S/S OF DISTRESS NOTED AT THIS TIME. RR EVEN AND UNLABORED ON RA. PT DENIES NEEDS AT THIS TIME. ASSESSMENT COMPLETED AT THIS TIME. WILL CONT TO MONITOR.
[2019-10-27] VITALS: BP 95/63
[2019-10-27 04:00] VITALS: BP 110/76
[2019-10-27 05:53] LABS: KETONE NEGATIVE (NEGATIVE); NITRITE NEGATIVE (NEGATIVE); UROBILINOGEN 12 mg/dL (NORMAL)
[2019-10-27 05:57] LABS: BACTERIA FEW /hpf (NEGATIVE); BILIRUBIN 2+ (NEGATIVE); EPITHELIAL CELLS 0-5 /hpf (0-5); WHITE CELLS - URINE 0-5 /hpf (NEGATIVE)
[2019-10-27 06:06] LABS: BASOPHILS 0.2 % (0-2); EOSINOPHILS 0.2 % (0-7); HEMATOCRIT 30.7 % (36.0-48.0); HEMOGLOBIN 10.1 g/dL (12-16); IMMATURE GRANULOCYTES 2.9 % (0-5); LYMPHOCYTES 4.8 % (15-50); MCH 29.6 pg (26.0-34.0); MCHC 32.9 g/dL (31.0-37.0); MEAN PLATELET VOLUME 9.7 fL (7.4-10.4); MONOCYTES 10.4 % (2-11); NEUTROPHILS 81.5 % (40-80); PLATELET COUNT 119 10x3/uL (130-400); RBC 3.41 10x6/uL (4.00-5.40); RDW 17.6 % (11.5-14.5); WBC 19.4 10x3/uL (4.8-10.8)
[2019-10-27 06:33] LABS: ALBUMIN 1.5 g/dL (3.4-5.0); ANION GAP 14.4 mmol/L (8-16); BILIRUBIN - TOTAL 9.49 mg/dL (0.2-1.3); CALCIUM 8.2 mg/dL (8.5-10.1); CREATININE - SERUM 1.7 mg/dL (0.6-1.3); MAGNESIUM - SERUM 1.8 mg/dL (1.8-2.4); PHOSPHOROUS 4.3 mg/dL (2.5-4.9); POTASSIUM - SERUM 5.4 mmol/L (3.5-5.1); PROTEIN - SERUM 5.1 g/dL (6.4-8.2)
[2019-10-27 08:46] VITALS: BP 93/54
--- NOTE | 2019-10-27 11:35 | NUR ---
Nutrition Follow-up: Pt had not yet eaten breakfast at time of visit this AM. Reports nausea improving. reports pt ate better yesterday than she had been; filling out menu for pt. C/o constipation. Diet: Regular Wt: 165# (10/24) Labs noted: Na 125, K+ 5.4, Glu 113, Ca 8.2, PO4 4.3, Alb 1.5 Meds noted: Pepcid, KDur, NS @ 75, electrolyte protocol -Encourage PO intake and honor food preferences. -Offer nutrition supplements. -Need new wt; noted daily wts ordered. -RD following.
[2019-10-27 13:08] LABS: ANION GAP 14.2 mmol/L (8-16); CARBON DIOXIDE 20.4 mmol/L (21.0-32.0); CREATININE - SERUM 1.8 mg/dL (0.6-1.3); POTASSIUM - SERUM 5.6 mmol/L (3.5-5.1)
[2019-10-27 20:56] VITALS: BP 96/52
[2019-10-28] VITALS (7 sets, daily range): BP systolic 82–123; BP diastolic 32–79
--- NOTE | 2019-10-28 08:09 | OP ---
PATIENT NAME: MARYLOU MURRAY MEDICAL RECORD: [id number] :53 LOCATION:D.M2 D.2113 ADMISSION DATE:10/24/19 SURGEON: NU LU MD DATE OF OPERATION: 10/26/2019 PROCEDURE: Left heart catheterization, selective coronary angiography, plus cardioversion, right femoral artery approach. CATHETERS: A 5-Lao sheath, 5/4 left and right Arturo, 5/4 pig. The procedure was well tolerated. The patient returned to baker. Sheath removed. ExoSeal device placed. FINDINGS: Left ventriculography in 30 degree RICARDO view shows apical hypokinesis. Overall function well preserved at 50%. CORONARY ANATOMY: LEFT MAIN: Left main is free of disease. LAD: Free of all vessels. However, the apex appears to be flush and occluded. CIRCUMFLEX: Free of disease. RIGHT CORONARY ARTERY: Large, dominant, free of disease. During the procedure, the patient had borderline blood pressure with atrial flutter with 2:1 as well as a fairly marked dyspnea was present upon arrival laborer [place]; however, given her symptomatology, it is felt that a cardioversion was indicated. She was easily cardioverted with a single shock at only 50 joule to normal sinus rhythm. IMPRESSION: Left heart catheterization to assess for cardioversion. During the procedure, Plavix was monitored continuously with pulse oximetry and telemetry and noninvasive blood pressure as well as invasive blood pressure monitoring. TRANSINT:[id number] Voice Confirmation ID: [id number] DOCUMENT ID: [id number] NU LU MD at 0809 CC: [id number] DICTATION DATE: 10/26/19 1151 PIE MAKER: 10/26/19 2213 ADM IN [facility] [address] [place] [address]
[2019-10-28 08:34] LABS: HEMATOCRIT 31.8 % (36.0-48.0); HEMOGLOBIN 10.6 g/dL (12-16); MCH 30.2 pg (26.0-34.0); MCHC 33.3 g/dL (31.0-37.0); MCV 90.6 fL (80.0-100.0); MEAN PLATELET VOLUME 9.3 fL (7.4-10.4); PLATELET COUNT 170 10x3/uL (130-400); RBC 3.51 10x6/uL (4.00-5.40); RDW 18.3 % (11.5-14.5); WBC 26.8 10x3/uL (4.8-10.8)
[2019-10-28 09:09] LABS: ALBUMIN 1.6 g/dL (3.4-5.0); ANION GAP 14.3 mmol/L (8-16); BILIRUBIN - TOTAL 8.85 mg/dL (0.2-1.3); CALCIUM 8.5 mg/dL (8.5-10.1); CARBON DIOXIDE 20.3 mmol/L (21.0-32.0); CREATININE - SERUM 1.7 mg/dL (0.6-1.3); MAGNESIUM - SERUM 1.9 mg/dL (1.8-2.4); PHOSPHOROUS 4.7 mg/dL (2.5-4.9); POTASSIUM - SERUM 5.6 mmol/L (3.5-5.1); PROTEIN - SERUM 5.1 g/dL (6.4-8.2)
[2019-10-28 12:06] LABS: ANISOCYTOSIS OCC; LYMPHOCYTES 6 % (15-50); MONOCYTES 16 % (2-11); NEUTROPHILS 73 % (40-80); PLATELET ESTIMATE NORMAL; POLYCHROMASIA OCC
--- NOTE | 2019-10-28 20:22 | NUR ---
RECEIVED BEDSIDE REPORT. ROUNDING COMPLETE. PATIENT RESTING COMFORTABLY IN BED. RESPIRATIONS ARE EVEN AND UNLABORED. NO S/S OF DISTRESS. NO C/O PAIN. CALL LIGHT WITHIN REACH. WILL CPOC.
[2019-10-29] VITALS: BP 101/46
[2019-10-29 04:00] VITALS: BP 99/51
--- NOTE | 2019-10-29 07:00 | NUR ---
RECEIVED REPORT. ASSUMED CARE OF PATIENT. CALL LIGHT WITHIN REACH. PATIENT RESTING ON RIGHT LATERAL SIDE WITH EYES CLOSED. RESP EVEN AND UNLABORED. SB ON TELEMETRY, RATE 46. PATIENT SPOUSE AT BEDSIDE. BEDSIDE SHIFT REPORT COMPLETE.
[2019-10-29 09:02] VITALS: BP 94/53
[2019-10-29 09:47] LABS: BASOPHILS 0.2 % (0-2); EOSINOPHILS 0.3 % (0-7); HEMATOCRIT 31.4 % (36.0-48.0); HEMOGLOBIN 10.6 g/dL (12-16); IMMATURE GRANULOCYTES 4.6 % (0-5); LYMPHOCYTES 6.4 % (15-50); MCH 30.5 pg (26.0-34.0); MCHC 33.8 g/dL (31.0-37.0); MCV 90.5 fL (80.0-100.0); MEAN PLATELET VOLUME 9.9 fL (7.4-10.4); MONOCYTES 9.3 % (2-11); NEUTROPHILS 79.2 % (40-80); PLATELET COUNT 191 10x3/uL (130-400); RBC 3.47 10x6/uL (4.00-5.40); WBC 23.2 10x3/uL (4.8-10.8)
[2019-10-29 09:53] LABS: ALBUMIN 1.5 g/dL (3.4-5.0); ANION GAP 18.8 mmol/L (8-16); BILIRUBIN - TOTAL 7.97 mg/dL (0.2-1.3); CALCIUM 8.7 mg/dL (8.5-10.1); CARBON DIOXIDE 15.6 mmol/L (21.0-32.0); MAGNESIUM - SERUM 2.2 mg/dL (1.8-2.4); PHOSPHOROUS 4.8 mg/dL (2.5-4.9)
[2019-10-29 09:58] LABS: POTASSIUM - SERUM 6.4 mmol/L (3.5-5.1)
--- NOTE | 2019-10-29 11:44 | NUR ---
PATIENT CHANGED TO RENAL DIET DUE TO ELEVATED K+. MEDS AND PROCALAMINE REVIEWED FOR CAUSES OF INCREASE IN K+. NO CHANGE TO IV NUTRITION OR MEDICATIONS AT THIS TIME.
[2019-10-29 14:40] LABS: ANION GAP 15.3 mmol/L (8-16); CALCIUM 8.8 mg/dL (8.5-10.1); CARBON DIOXIDE 19.1 mmol/L (21.0-32.0)
[2019-10-29 14:44] LABS: POTASSIUM - SERUM 6.4 mmol/L (3.5-5.1)
[2019-10-29 14:53] VITALS: BP 84/39
--- NOTE | 2019-10-29 15:18 | NUR ---
PATIENT ASSISTED OOB TO BSC BY THIS FIRST AID OFFICER AND SPOUSE. PATIENT RECEIVED KAYEXALATE FOR ELEVATED K+.
--- NOTE | 2019-10-29 17:57 | NUR ---
WAITING FOR PHARMACY TO VERIFY ORDERS. DR. ESCALANTE AT BEDSIDE AND AWARE OF D5NS INFUSING AT 75ML/HR WHILE AWAITING D5 WITH 3 AMPS OF SODIUM BICARB TO BE BROUGHT TO THE UNIT. CERAMIC MOLD DESIGNER NOTIFIED OF NEW ORDERS AND QUESTIONED WHO WOULD MIX THIS IV FLUID. AWAITING ORDER TO BE VERIFIED AT THIS TIME.
[2019-10-29 18:06] VITALS: BP 93/37
--- NOTE | 2019-10-29 18:44 | NUR ---
3 AMPS SODIUM BICARB ADDED TO D5NS AT THIS TIME ORDERED. IV FLUIDS INFUSING ORDERED AT 75ML/HR. NO DISTRESS. 3 AMPS = 150MEQ SODIUM BICARB.
[2019-10-29 18:54] LABS: ANION GAP 16.5 mmol/L (8-16); CALCIUM 8.6 mg/dL (8.5-10.1); CARBON DIOXIDE 17.6 mmol/L (21.0-32.0); CREATININE - SERUM 2.1 mg/dL (0.6-1.3)
[2019-10-29 18:57] LABS: POTASSIUM - SERUM 5.1 mmol/L (3.5-5.1)
[2019-10-29 20:00] VITALS: BP 94/51
--- NOTE | 2019-10-29 20:00 | NUR ---
INITIAL ROUNDS AND ASSESSMENT COMPLETED. PT RESTING IN BED. NO DISTRESS. CPOC.
[2019-10-29 22:59] LABS: ANION GAP 15.5 mmol/L (8-16); CARBON DIOXIDE 18.5 mmol/L (21.0-32.0); CREATININE - SERUM 2.1 mg/dL (0.6-1.3)
[2019-10-30 00:01] VITALS: BP 115/45
[2019-10-30 04:00] VITALS: BP 101/59
--- NOTE | 2019-10-30 07:00 | NUR ---
RECEIVED REPORT. ASSUMED CARE OF PATIENT. PATIENT RESTING WITH EYES CLOSED, RESP EVEN AND UNLABORED, ON ROOM AIR. PATIENT SPOUSE AT BEDSIDE. CALL LIGHT WITHIN REACH. IV FLUIDS INFUSING ORDERED. NO DISTRESS. BEDSIDE SHIFT REPORT COMPLETE. WHITE BOARD UPDATED.
--- NOTE | 2019-10-30 07:31 | NUR ---
LAB AT BEDSIDE FOR LAB DRAW AT THIS TIME.
[2019-10-30 07:56] LABS: ANION GAP 15.1 mmol/L (8-16); CALCIUM 9.1 mg/dL (8.5-10.1); CARBON DIOXIDE 18.7 mmol/L (21.0-32.0); CREATININE - SERUM 1.9 mg/dL (0.6-1.3); POTASSIUM - SERUM 4.8 mmol/L (3.5-5.1)
[2019-10-30 08:00] VITALS: BP 94/51
[2019-10-30 08:07] LABS: HEMATOCRIT 32.5 % (36.0-48.0); HEMOGLOBIN 10.9 g/dL (12-16); MCHC 33.5 g/dL (31.0-37.0); MCV 92.3 fL (80.0-100.0); MEAN PLATELET VOLUME 9.8 fL (7.4-10.4); PLATELET COUNT 177 10x3/uL (130-400); RBC 3.52 10x6/uL (4.00-5.40); RDW 19.6 % (11.5-14.5); WBC 23.5 10x3/uL (4.8-10.8)
[2019-10-30 08:50] LABS: ANISOCYTOSIS OCC; EOSINOPHILS 1 % (0-7); LYMPHOCYTES 9 % (15-50); NEUTROPHILS 90 % (40-80); PLATELET ESTIMATE NORMAL; TARGET CELLS 1+
[2019-10-30 08:51] LABS: POLYCHROMASIA OCC
[2019-10-30 12:00] VITALS: BP 98/56
[2019-10-30 16:00] VITALS: BP 105/61
--- NOTE | 2019-10-30 19:13 | NUR ---
INITIAL ROUNDS COMPLETED. PT RESTING WITH EYES CLOSED. RESP EVEN AND REGULAR. SR UP X2,CALL LIGHT WITHIN REACH.
[2019-10-30 20:00] VITALS: BP 119/76
--- NOTE | 2019-10-30 20:33 | NUR ---
ASSESSMENT COMPLETED AT 2009 HRS. SB PER CM HR 51. PT ALERT AND ORIENTED. IV TO R FA WITH D5W WITH 3 AMPS BICARB AT 75CC/HR. IV PATENT. PT JAUNDICED. LUNGS DIMINISHED IN BASES BILAT. PATTON. PALPABLE PERIPHERAL PULSES. ABD DISTENDED WITH ACTIVE BS NOTED. BRUISES TO BILAT ARMS. SPOUSE AT BEDSIDE. SR UP X2,CALL LIGHT WITHIN REACH.
--- NOTE | 2019-10-30 22:17 | NUR ---
BP STABLE 119/76 HR 56. PM MEDS GIVEN WITHOUT DIFFICULTY. UNDERSTANDS NPO AFTER MIDNIGHT FOR AM THOROCENTESIS. SPOUSE AT BEDSIDE.
--- NOTE | 2019-10-30 23:36 | NUR ---
pt sitting on side of bed with spouse at bedside. HAS C/O BACK PAIN AND RESTLESSNESS. PT DECLINED OFFER FOR WARM PACK TO LOWER BACK. WILL CONTINUE TO MONITOR.
[2019-10-31] VITALS (9 sets, daily range): BP systolic 85–109; BP diastolic 44–67
--- NOTE | 2019-10-31 02:18 | NUR ---
PT RESTING WITH EYES CLOSED ON R SIDE. RESP EVEN AND REGULAR. SPOUSE AT BEDSIDE.
--- NOTE | 2019-10-31 03:32 | NUR ---
PT RESTING WITH EYES CLOSED. RESP EVEN AND REGULAR. SR UP X2, CALL LIGHT WITHIN REACH AND SPOUSE AT BEDSIDE.
--- NOTE | 2019-10-31 04:28 | NUR ---
HIBICLENS BATH COMPLETED. NO DISTRESS NOTED.
--- NOTE | 2019-10-31 05:58 | NUR ---
PT RESTED FITFULLY DURNG SHIFT. NPO FOR AM CT THORACENTESIS. NEEDS MET; WILL CONTINUE TO MONITOR.
[2019-10-31 06:34] LABS: ANION GAP 12.4 mmol/L (8-16); CALCIUM 8.8 mg/dL (8.5-10.1); CARBON DIOXIDE 23.8 mmol/L (21.0-32.0); CREATININE - SERUM 1.7 mg/dL (0.6-1.3); PHOSPHOROUS 4.8 mg/dL (2.5-4.9); POTASSIUM - SERUM 4.2 mmol/L (3.5-5.1)
[2019-10-31 07:08] LABS: BASOPHILS 0.1 % (0-2); EOSINOPHILS 0.2 % (0-7); HEMATOCRIT 30.2 % (36.0-48.0); HEMOGLOBIN 10.3 g/dL (12-16); IMMATURE GRANULOCYTES 2.7 % (0-5); LYMPHOCYTES 5.2 % (15-50); MCH 31.1 pg (26.0-34.0); MCHC 34.1 g/dL (31.0-37.0); MCV 91.2 fL (80.0-100.0); MEAN PLATELET VOLUME 9.9 fL (7.4-10.4); MONOCYTES 7.7 % (2-11); NEUTROPHILS 84.1 % (40-80); PLATELET COUNT 202 10x3/uL (130-400); RBC 3.31 10x6/uL (4.00-5.40); RDW 19.4 % (11.5-14.5); WBC 21.1 10x3/uL (4.8-10.8)
[2019-10-31 07:32] LABS: INR 1.47 (0.85-1.17); PROTIME 17.7 SECONDS (11.6-15.0)
[2019-10-31 07:33] LABS: APTT 40.6 SECONDS (22.8-39.4)
--- NOTE | 2019-10-31 10:46 | NUR ---
AM MEDS GIVEN WITH A SIP OF WATER. INFORMED PT AND PT THAT RADIOLOGY WILL TRY TO GET HER BEFORE NOON BUT THEY ARE HAVING TROUBLE WITH THEIR MACHINES SO IT COULD BE IN THE AFTER NOON IF THEY CONTINUE TO HAVE PROBLEMS.
--- NOTE | 2019-10-31 15:17 | NUR ---
RECEIVED PT BACK TO ROOM 211, DRESSING TO RT FLANK AREA. VITAL SIGNS STABLE. PT DENIES ANY NEEDS AT THIS TIME. CALL LIGHT IN REACH, NAD NOTED,W ILL CONTINUE TO MONITOR.
[2019-10-31 16:23] LABS: PROTEIN - BODY FLUID 0.8 G/DL
[2019-10-31 19:31] LABS: MACROPHAGES BF 58 %; MESOTHELIALS BF 2 %; NEUT - BF 39 %
--- NOTE | 2019-10-31 20:07 | NUR ---
REPORT RECIEVED AND ROUNDING COMPLETE. PATIENT SITTING IN CHAIR WITH FEET UP, IN THE OTHER CHAIR. PATIENT HAS A RIGHT FOREARM PIV WITH FLUIDS RUNNING AT THIS TIME. DRESSING TO THE RIGHT FLANK C/D/I. PATIENT STATES NO PAIN AT THIS TIME, NO NEEDS VOICED. NO DISTRESS NOTED. CALL LIGHT WITHIN REACH.
[2019-11-01] VITALS: BP 84/53
[2019-11-01 04:00] VITALS: BP 85/54
[2019-11-01 05:36] LABS: HEMATOCRIT 30.6 % (36.0-48.0); HEMOGLOBIN 10.4 g/dL (12-16); MCH 31.6 pg (26.0-34.0); MEAN PLATELET VOLUME 10.6 fL (7.4-10.4); PLATELET COUNT 211 10x3/uL (130-400); RBC 3.29 10x6/uL (4.00-5.40); RDW 20.2 % (11.5-14.5); WBC 22.1 10x3/uL (4.8-10.8)
[2019-11-01 05:49] LABS: ALBUMIN 1.2 g/dL (3.4-5.0); ANION GAP 10.9 mmol/L (8-16); BILIRUBIN - DIRECT 6.73 mg/dL (0.00-0.30); BILIRUBIN - INDIRECT 0.92 mg/dL (0.00-1.00); BILIRUBIN - TOTAL 7.65 mg/dL (0.2-1.3); CALCIUM 8.9 mg/dL (8.5-10.1); CARBON DIOXIDE 25.6 mmol/L (21.0-32.0); CREATININE - SERUM 1.6 mg/dL (0.6-1.3); POTASSIUM - SERUM 4.5 mmol/L (3.5-5.1); PROTEIN - SERUM 4.8 g/dL (6.4-8.2); THYROID STIMULATING HORMONE 5.18 uIU/mL (0.36-3.74)
[2019-11-01 08:00] VITALS: BP 121/55
--- NOTE | 2019-11-01 08:52 | NUR ---
GAVE PT SCHEDULED MEDS WITHOUT DIFFICULTY, NO OTHER NEEDS VOICED, WILL CONTINUE TO MONITOR
[2019-11-01 12:03] VITALS: BP 93/48
--- NOTE | 2019-11-01 12:33 | NUR ---
Nutrition Follow-up: Not eating well. Ate ~25% of breakfast this AM. reports pt does not have the energy to eat or an appetite. C/o nausea. Agreed to try Nepro at lunch. Receiving Procal @ 50 (provides 294 kcal & 36 g protein daily). S/p R thoracentesis yesterday (-1.3 L). Diet: Renal Wt: 177# (10/28) Labs noted: Na 127, PO4 5.0, Alb 1.2 Meds noted: Pepcid, vitamin D, Lasix, Procal @ 50, electrolyte protocol -Encourage PO intake and honor food preferences within diet restrictions. -Nepro sent with lunch today for pt trial. -Pt may benefit from an appetite stimulant. -Need new wt; noted daily wts ordered. -RD following.
[2019-11-01 13:03] LABS: ANISOCYTOSIS OCC; EOSINOPHILS 1 % (0-7); LYMPHOCYTES 6 % (15-50); MONOCYTES 13 % (2-11); NEUTROPHILS 76 % (40-80); PLATELET ESTIMATE NORMAL
[2019-11-01 14:30] VITALS: BP 93/52
--- NOTE | 2019-11-01 14:32 | NUR ---
PT IS RESTING IN BED, VITALS STABLE, NO OTHER NEEDS VOICED, WILL MONITOR
[2019-11-01 15:37] LABS: BILIRUBIN NEGATIVE (NEGATIVE); KETONE NEGATIVE (NEGATIVE); NITRITE NEGATIVE (NEGATIVE); UROBILINOGEN NORMAL (NORMAL)
[2019-11-01 15:39] LABS: BACTERIA MODERATE /hpf (NONE SEEN)
[2019-11-01 20:00] VITALS: BP 113/63
[2019-11-02] VITALS: BP 96/47
[2019-11-02 04:00] VITALS: BP 102/61
[2019-11-02 06:17] LABS: BASOPHILS 0.1 % (0-2); EOSINOPHILS 0.1 % (0-7); HEMATOCRIT 32.3 % (36.0-48.0); HEMOGLOBIN 10.7 g/dL (12-16); IMMATURE GRANULOCYTES 2.1 % (0-5); LYMPHOCYTES 4.1 % (15-50); MCH 30.8 pg (26.0-34.0); MCHC 33.1 g/dL (31.0-37.0); MCV 93.1 fL (80.0-100.0); MEAN PLATELET VOLUME 10.2 fL (7.4-10.4); MONOCYTES 9.9 % (2-11); NEUTROPHILS 83.7 % (40-80); PLATELET COUNT 198 10x3/uL (130-400); RBC 3.47 10x6/uL (4.00-5.40); RDW 20.7 % (11.5-14.5); WBC 22.2 10x3/uL (4.8-10.8)
[2019-11-02 06:50] LABS: ALBUMIN 1.2 g/dL (3.4-5.0); ANION GAP 11.6 mmol/L (8-16); BILIRUBIN - TOTAL 7.67 mg/dL (0.2-1.3); CALCIUM 9.6 mg/dL (8.5-10.1); CREATININE - SERUM 1.4 mg/dL (0.6-1.3); PHOSPHOROUS 4.9 mg/dL (2.5-4.9); POTASSIUM - SERUM 4.6 mmol/L (3.5-5.1)
[2019-11-02 06:59] LABS: C-REACTIVE PROTEIN 21.6 mg/dL (0.0-0.9)
--- NOTE | 2019-11-02 07:22 | NUR ---
WALKING ROUNDS COMPLETE, PT REATING IN BED WITH EYES CLOSED, RESP EVEN AND UNLABORED, PT SHOWS NO S/S OF PAIN OR NEEDS AT THIS TIME, AT BEDSIDE, WILL MONITOR
[2019-11-02 07:37] LABS: INR 1.36 (0.85-1.17); PROTIME 16.6 SECONDS (11.6-15.0)
[2019-11-02 07:52] LABS: AMYLASE - SERUM 81 U/L (25-115); LIPASE 290 U/L (73-393)
--- NOTE | 2019-11-02 09:05 | NUR ---
GAVE PT SCHEDULED MEDS, PT IS VERY LETHARGIC TODAY, PT DOES FOLLOW COMMANDS, AT BEDSIDE, NO OTHER NEEDS VOICED AT THIS TIME, WILL MONITOR
[2019-11-02 10:36] VITALS: BP 98/53
--- NOTE | 2019-11-02 11:21 | NUR ---
PT TOOK MED WITHOUT DIFFICULTY, PT IS WORKING WITH PT AT THIS TIME, PT TOLERATING FAIR, AT BEDSIDE, WILL MONITOR
--- NOTE | 2019-11-02 14:17 | MORECARE ---
CASE MANAGEMENT DISCHARGE SUMMARY PATIENT: MARYLOU MURRAY UNIT: [id number] ADM DATE: 10/24/19 AGE: 64 : 53 SEX: F ROOM/BED: D.2113 AUTHOR: GOMEZ SHERIFF PHYSICIAN: REFERRING PHYSICIAN: PAYAL CALVERT DO DATE OF SERVICE: 11/02/19 Discharge Plan Patient Name: MARYLOU MURRAY [facility] [facility] 1955 Planned Disposition: Home Anticipated Discharge Date: Discharge Date: Expected LOS: Initial Reviewer: [email or web address] Initial Review Date: 10/24/2019 Generated: 11/02/19 3:16 pm Patient Name: MARYLOU MURRAY Page [id number] at 1417 All edits/amendments must be made on the electronic document DICTATION DATE: 11/02/19 1416 AGENCY SALES DEVELOPMENT ASSOCIATE: BIENVENIDO 11/02/19 1416 RPT#: [id number] DC DATE: STATUS: ADM IN [facility] [address] [place] [address] END OF REPORT
--- NOTE | 2019-11-02 14:27 | MORECARE ---
CASE MANAGEMENT DISCHARGE SUMMARY PATIENT: MARYLOU SOFIA UNIT: [id number] ADM DATE: 10/24/19 AGE: 64 : 53 SEX: F ROOM/BED: D.3266 AUTHOR: GOMEZ SHERIFF PHYSICIAN: REFERRING PHYSICIAN: PAYAL CALVERT DO DATE OF SERVICE: 11/02/19 Discharge Plan Patient Name: MARYLOU SOFIA Facility: [facility]:[place] : 1955 Planned Disposition: Home Anticipated Discharge Date: Discharge Date: Expected LOS: Initial Reviewer: [email or web address] Initial Review Date: 10/24/2019 Generated: 11/02/19 3:26 pm Comments DCP- Discharge Planning Updated by [id number]: Doug Porter on 11/02/19 1:[address] Patient Name: MARYLOU SOFIA Admission Status: Elective Accout number: [id number] Admission Date: 10-24-2019 : 1955 Admission Diagnosis:CHEST PAIN, UNSPECIFIED Attending: PAYAL CALVERT Current LOS: 9 Anticipated DC Date: Planned Disposition: Home Primary Insurance: MEDICARE A & B Discharge Planning Comments: CM met with patient to complete initial dc planning assessment. CM educated patient on the CM role and verbal consent given by patient to complete assessment. CM verified patient's address, phone number, and emergency contact phone numbers. Patient lives at home with spouse, Tim Pillai, . At discharge patient plans to return home and feels this is a safe discharge. Spouse states that he works from home and she is never home alone. CM discussed availability of home health, rehab services, and medical equipment. Patient declines inpatient rehab and retirement at this time. Patient and spouse are considering home health services with a previous service, [facility]. Spouse assists with toileting, ambulation, medication management, and bathing. Transportation provider at discharge will be with her spouse. CM will continue to follow and will assist as needed with dc plans/needs. Meat And Poultry Inspector: Doug Porter DCPIA - Discharge Planning Initial Assessment Updated by [email or web address]: Doug Porter on 11/02/19 2:20 pm * Is the patient Alert and Oriented? Yes * How many steps to enter\exit or inside your home? 0/0 * PCP Dr. Burger/ Monica DOMINGUEZ * Pharmacy [facility] [address] ([place] by the [address]) * Preadmission Environment Home with Family * ADLs Partial Dependent * Partial ADLs (Assistance needed) Ambulation Bathing Medication Management Toileting * Equipment Cane Shower Chair Walker * List name and contact numbers for known caregivers / representatives who currently or will assist patient after discharge: Son- Ajit Sofia ([phone] in [place]) Spouse - Tim Sofia ([phone]) * Verbal permission to speak to the caregivers and representatives has been obtained from the patient. Yes * Community resources currently utilized None * Additional services required to return to the preadmission environment? No * Can the patient safely return to the preadmission environment? Yes * Has this patient been hospitalized within the prior 30 days at any hospital? No Coverage Notice Reviewer: [id number] Arti Porter Notice Issued Date-Time: 11/02/2019 14:24 Notice Type: Patient Choice Letter Notice Delivered To: Family Member Relationship to Patient: Spouse Liaison Planner Name: Tim Sofia Delivery Method: HAND - Hand Delivered Elizabeth Days: Prior Verbal Notification: Recipient Understood Notice: Yes Recipient Signature: Yes Med Rec Note Co-signed by Attending: Coverage Notice Comment: [facility] for [facility] Last DP export: 11/02/19 1:17 pm Patient Name: MARYLOU SOFIA Page [phone] at 1427 All edits/amendments must be made on the electronic document DICTATION DATE: 11/02/19 142 SENIOR ADMINISTRATIVE ASSISTANT: BIENVENIDO 11/02/19 1427 RPT#: [id number] DC DATE: STATUS: ADM IN [facility] [address] [place] [address] END OF REPORT
--- NOTE | 2019-11-02 19:52 | NUR ---
REPORT RECIEVED AND ROUNDING COMPLETE. PATIENT LAYING IN BED ON RIGHT SIDE, RIGHT FOREARM PIV RUNNING FLUIDS AND PATENT. PATIENT HAS EYES CLOSED, BREATHING EVEN AND ULABORED, BED IN LOWEST LOCKED POSITION AND CALL LIGHT WITHIN REACH NO DISTRESS NOTED AT THIS TIME.
[2019-11-02 20:00] VITALS: BP 128/77
[2019-11-03] VITALS: BP 135/66
[2019-11-03 04:00] VITALS: BP 113/68
--- NOTE | 2019-11-03 07:10 | NUR ---
PT LYING IN BED WITH EYES CLOSED. CHEST RISING AND FALLING. BED LOW. CL IN REACH. AT BEDSIDE. WILL CONTINUE TO OBSERVE.
--- NOTE | 2019-11-03 08:39 | NUR ---
DR. PIRES'S OFFICE NURSE CALLED FOR UPDATE ON PT. SHE STATES SHE WILL EVER LAND TELL PT'S SONS AND TALK TO THEM ABOUT CHANGING PT'S CODE STATUS AND ABOUT HOSPICE. I VERBALIZED UNDERSTANDING.
[2019-11-03 08:49] LABS: ALBUMIN 1.3 g/dL (3.4-5.0); ANION GAP 13.2 mmol/L (8-16); BILIRUBIN - TOTAL 8.44 mg/dL (0.2-1.3); CALCIUM 10.3 mg/dL (8.5-10.1); CARBON DIOXIDE 23.7 mmol/L (21.0-32.0); CREATININE - SERUM 1.4 mg/dL (0.6-1.3); PHOSPHOROUS 4.8 mg/dL (2.5-4.9); POTASSIUM - SERUM 4.9 mmol/L (3.5-5.1); PROTEIN - SERUM 4.8 g/dL (6.4-8.2)
[2019-11-03 09:08] LABS: HEMATOCRIT 34.8 % (36.0-48.0); HEMOGLOBIN 11.6 g/dL (12-16); MCH 31.4 pg (26.0-34.0); MCHC 33.3 g/dL (31.0-37.0); MCV 94.1 fL (80.0-100.0); PLATELET COUNT 190 10x3/uL (130-400); RDW 21.6 % (11.5-14.5); WBC 25.7 10x3/uL (4.8-10.8)
[2019-11-03 09:26] LABS: LYMPHOCYTES 7 % (15-50); MONOCYTES 3 % (2-11); NEUTROPHILS 90 % (40-80)
[2019-11-03 09:27] LABS: ANISOCYTOSIS OCC; PLATELET ESTIMATE NORMAL; POLYCHROMASIA OCC; TARGET CELLS OCC; TEAR DROP CELLS OCC
[2019-11-03 09:32] VITALS: BP 101/46
--- NOTE | 2019-11-03 09:51 | NUR ---
RIGHT FA 24G IV LEAKING. DC'D WITH CATH INTACT. INSERTED LEFT FA 22G IV FIRST ATTEMPT.
--- NOTE | 2019-11-03 11:09 | NUR ---
Nutrition Follow-up: Continues with poor PO intake. reports he will try to get pt to drink Nepro. Receiving Procal @ 50. Increased abd distention per Dr. Crawford. Per Dr. García, may consider full TPN or dobhoff. Diet: Renal, Nepro 1/day PO intake: 0-10% yesterday No new wt; last wt: 177# (10/28) Labs noted: Na 127, Ca 10.3, Alb 1.3 Meds noted: Colace, Pepcid, vitamin D, MagOx, electrolyte protocol -Encourage PO intake and honor food preferences within diet restrictions. -If started on more substantial nutrition support, rec TF vs TPN if able to tolerate 2/2 pt with functional GI tract. -Need new wt; noted daily wts ordered. -RD following.
--- NOTE | 2019-11-03 11:52 | NUR ---
PT TAKEN VIA STRETCHER TO MRI.
--- NOTE | 2019-11-03 18:00 | NUR ---
I have reviewed this patient and I concur with the Shift Assessment completed by the Licensed Practical Nurse today this shift.
--- NOTE | 2019-11-03 20:33 | NUR ---
REPORT RECEIVED, WILL CONT POC. PT ASLEEP, EASY TO AROUSE. PTS AT BEDSIDE, REPORTS PT HAS NOT BEEN SLEEPING WILL AND ASKED TO LET HER SLEEP FOR AWHILE. NO S/S OF DISTRESS. RR EVEN AND UNLABORED ON RA. PT/ DENIES NEEDS AT THIS TIME. ASSESSMENT COMPLETED AT THIS TIME. WILL CONT TO MONITOR.
[2019-11-03 22:35] VITALS: BP 107/70
[2019-11-04 04:00] VITALS: BP 114/72
[2019-11-04 10:01] VITALS: BP 104/58
[2019-11-04 10:02] LABS: BASOPHILS 0.1 % (0-2); EOSINOPHILS 0.2 % (0-7); HEMATOCRIT 36.4 % (36.0-48.0); HEMOGLOBIN 12.2 g/dL (12-16); IMMATURE GRANULOCYTES 1.5 % (0-5); LYMPHOCYTES 5.9 % (15-50); MCH 32.1 pg (26.0-34.0); MCHC 33.5 g/dL (31.0-37.0); MCV 95.8 fL (80.0-100.0); MEAN PLATELET VOLUME 10.4 fL (7.4-10.4); MONOCYTES 4.7 % (2-11); NEUTROPHILS 87.6 % (40-80); PLATELET COUNT 155 10x3/uL (130-400); RDW 22.6 % (11.5-14.5); WBC 25.1 10x3/uL (4.8-10.8)
[2019-11-04 10:44] LABS: ALBUMIN 1.3 g/dL (3.4-5.0); ANION GAP 16.4 mmol/L (8-16); BILIRUBIN - TOTAL 9.65 mg/dL (0.2-1.3); CALCIUM 10.7 mg/dL (8.5-10.1); CARBON DIOXIDE 21.7 mmol/L (21.0-32.0); CREATININE - SERUM 1.3 mg/dL (0.6-1.3); MAGNESIUM - SERUM 2.3 mg/dL (1.8-2.4); PHOSPHOROUS 5.1 mg/dL (2.5-4.9); POTASSIUM - SERUM 5.1 mmol/L (3.5-5.1); PROTEIN - SERUM 4.9 g/dL (6.4-8.2)
[2019-11-04 13:38] VITALS: BP 110/64
--- NOTE | 2019-11-04 16:09 | MORECARE ---
CASE MANAGEMENT DISCHARGE SUMMARY PATIENT: MARYLOU SOFIA UNIT: [id number] ADM DATE: 10/24/19 AGE: 64 : 53 SEX: F ROOM/BED: D.2356 AUTHOR: GOMEZ SHERIFF PHYSICIAN: REFERRING PHYSICIAN: PAYAL CALVERT DO DATE OF SERVICE: 11/04/19 Discharge Plan Patient Name: MARYLOU SOFIA Facility: [facility]:[place] : 1955 Planned Disposition: Home Anticipated Discharge Date: Discharge Date: Expected LOS: Initial Reviewer: [email or web address] Initial Review Date: 10/24/2019 Generated: 11/04/19 5:08 pm Comments DCP- Discharge Planning Updated by [email or web address]: Doug Porter on 11/02/19 1:[address] Patient Name: MARYLOU SOFIA Admission Status: Elective Accout number: [id number] Admission Date: 10-24-2019 : 1955 Admission Diagnosis:CHEST PAIN, UNSPECIFIED Attending: PAYAL CALVERT Current LOS: 9 Anticipated DC Date: Planned Disposition: Home Primary Insurance: MEDICARE A & B Discharge Planning Comments: CM met with patient to complete initial dc planning assessment. CM educated patient on the CM role and verbal consent given by patient to complete assessment. CM verified patient's address, phone number, and emergency contact phone numbers. Patient lives at home with spouse, Tim Pillai, . At discharge patient plans to return home and feels this is a safe discharge. Spouse states that he works from home and she is never home alone. CM discussed availability of home health, rehab services, and medical equipment. Patient declines inpatient rehab and nursing home at this time. Patient and spouse are considering home health services with a previous service, [facility]. Spouse assists with toileting, ambulation, medication management, and bathing. Transportation provider at discharge will be with her spouse. CM will continue to follow and will assist as needed with dc plans/needs. Binder Sorter: Doug Porter DCPIA - Discharge Planning Initial Assessment Updated by [email or web address]: Doug Porter on 11/02/19 2:20 pm * Is the patient Alert and Oriented? Yes * How many steps to enter\exit or inside your home? 0/0 * PCP Dr. Burger/ Monica DOMINGUEZ * Pharmacy [facility] [address] ([place] by the [address]) * Preadmission Environment Home with Family * ADLs Partial Dependent * Partial ADLs (Assistance needed) Ambulation Bathing Medication Management Toileting * Equipment Cane Shower Chair Walker * List name and contact numbers for known caregivers / representatives who currently or will assist patient after discharge: Son- Ajit Sofia ([phone] in [place]) Spouse - Tim Sofia ([phone]) * Verbal permission to speak to the caregivers and representatives has been obtained from the patient. Yes * Community resources currently utilized None * Additional services required to return to the preadmission environment? No * Can the patient safely return to the preadmission environment? Yes * Has this patient been hospitalized within the prior 30 days at any hospital? No Coverage Notice Reviewer: [id number] Arti Porter Notice Issued Date-Time: 11/02/2019 14:24 Notice Type: Patient Choice Letter Notice Delivered To: Family Member Relationship to Patient: Spouse Acetylene Torch Burner Name: Tim Sofia Delivery Method: HAND - Hand Delivered Elizabeth Days: Prior Verbal Notification: Recipient Understood Notice: Yes Recipient Signature: Yes Med Rec Note Co-signed by Attending: Coverage Notice Comment: [facility] for [facility] Last DP export: 11/02/19 1:27 pm Patient Name: MARYLOU SOFIA Page [phone] at 1609 All edits/amendments must be made on the electronic document DICTATION DATE: 11/04/19 1609 STATOR TESTER: BIENVENIDO 11/04/19 1609 RPT#: [id number] DC DATE: STATUS: ADM IN [facility] [address] [place] [address] END OF REPORT
--- NOTE | 2019-11-04 16:22 | NUR ---
RECEIVED WORD FROM PORTABLE TRACKMAN THAT THE PATIENTS HAD CALLED HIS DOCTORS OFFICE TO NOTIFY THEM THAT THE PATIENT, HIS , HAD NOT RECEIVED A BATH SINCE SHE HAD BEEN HERE. AFTER BEING IN THE ROOM ALL DAY, THE PATIENT NOR THE STATED THAT SHE HADNT RECEIVED A BATH. REASSURED THE PATIENT AND THAT SHE WOULD GET A BATH BUT THAT HE WAS WELCOME TO HAVE COME TO ME TO ADDRESS HIS CONCERN. VOCALIZED UNDERSTANDING AND THANKED ME.
[2019-11-04 22:37] VITALS: BP 119/61
[2019-11-05 04:39] VITALS: BP 104/56
[2019-11-05] MEDS ORDERED: XARELTO20 MG PO (08:31)
[2019-11-05] MEDS ORDERED: ALDACTONE25 MG PO (08:32)
[2019-11-05] MEDS ORDERED: BETAPACE 80 MG80 MG PO (08:32)
[2019-11-05] MEDS ORDERED: ACTIGALL 300 M300 MG PO (08:33)
[2019-11-05] MEDS ORDERED: MEGACE40 MG PO (08:33)
[2019-11-05 08:36] VITALS: BP 111/68
--- NOTE | 2019-11-05 09:00 | NUR ---
ALERT AND LETHARGIC. SKIN COOL AND DRY AND JAUNDICED. GENERALIZED WEAKNESS NOTED WITH PERICARE DONE WITH EACH INCONT. EPISODE. TELEMETRY INTACT. IV INTACT TO LEFT F/A. HERE AND WISHING TO DISCHARGE WITH HOSPICE TODAY. CASE MANAGEMENT NOTIFIED.
--- NOTE | 2019-11-05 09:14 | MORECARE ---
CASE MANAGEMENT DISCHARGE SUMMARY PATIENT: MARYLOU SOFIA UNIT: [id number] ADM DATE: 10/24/19 AGE: 64 : 53 SEX: F ROOM/BED: D.9566 AUTHOR: GOMEZ SHERIFF PHYSICIAN: REFERRING PHYSICIAN: PAYAL CALVERT DO DATE OF SERVICE: 11/05/19 Discharge Plan Patient Name: MARYLOU SOFIA Facility: [facility]:[place] : 1955 Planned Disposition: Home Anticipated Discharge Date: Discharge Date: Expected LOS: Initial Reviewer: [email or web address] Initial Review Date: 10/24/2019 Generated: 11/05/19 10:14 am Comments DCP- Discharge Planning Updated by [email or web address]: Doug Porter on 11/02/19 1:[address] Patient Name: MARYLOU SOFIA Admission Status: Elective Accout number: [id number] Admission Date: 10-24-2019 : 1955 Admission Diagnosis:CHEST PAIN, UNSPECIFIED Attending: PAYAL CALVERT Current LOS: 9 Anticipated DC Date: Planned Disposition: Home Primary Insurance: MEDICARE A & B Discharge Planning Comments: CM met with patient to complete initial dc planning assessment. CM educated patient on the CM role and verbal consent given by patient to complete assessment. CM verified patient's address, phone number, and emergency contact phone numbers. Patient lives at home with spouse, Tim Pillai, . At discharge patient plans to return home and feels this is a safe discharge. Spouse states that he works from home and she is never home alone. CM discussed availability of home health, rehab services, and medical equipment. Patient declines inpatient rehab and retirement at this time. Patient and spouse are considering home health services with a previous service, [facility]. Spouse assists with toileting, ambulation, medication management, and bathing. Transportation provider at discharge will be with her spouse. CM will continue to follow and will assist as needed with dc plans/needs. Wood Heel Cementer: Doug Porter DCPIA - Discharge Planning Initial Assessment Updated by [email or web address]: Doug Porter on 11/02/19 2:20 pm * Is the patient Alert and Oriented? Yes * How many steps to enter\exit or inside your home? 0/0 * PCP Dr. Burger/ Monica DOMINGUEZ * Pharmacy [facility] on [address] ([place] by the [address]) * Preadmission Environment Home with Family * ADLs Partial Dependent * Partial ADLs (Assistance needed) Ambulation Bathing Medication Management Toileting * Equipment Cane Shower Chair Walker * List name and contact numbers for known caregivers / representatives who currently or will assist patient after discharge: Son- Ajit Sofia ([phone] in [place]) Spouse - Tim Sofia ([phone]) * Verbal permission to speak to the caregivers and representatives has been obtained from the patient. Yes * Community resources currently utilized None * Additional services required to return to the preadmission environment? No * Can the patient safely return to the preadmission environment? Yes * Has this patient been hospitalized within the prior 30 days at any hospital? No External Providers External Provider: [facility] Next Contact Date: Service Request Date: Service Type: Resolution: Reviewer: Comments: Coverage Notice Reviewer: [email or web address] Arti Porter Notice Issued Date-Time: 11/02/2019 14:24 Notice Type: Patient Choice Letter Notice Delivered To: Family Member Relationship to Patient: Spouse Line Inspector Name: Tim Sofia Delivery Method: HAND - Hand Delivered Elizabeth Days: Prior Verbal Notification: Recipient Understood Notice: Yes Recipient Signature: Yes Med Rec Note Co-signed by Attending: Coverage Notice Comment: [facility] for [facility] Last DP export: 11/04/19 3:09 pm Patient Name: MARYLOU SOFIA Page 12576 at 0914 All edits/amendments must be made on the electronic document DICTATION DATE: 11/05/19913 AUTHORIZER: BIENVENIDO 11/05/19913 RPT#: [id number] DC DATE: STATUS: ADM IN [facility] [address] [place] [address] END OF REPORT
--- NOTE | 2019-11-05 10:17 | MORECARE ---
CASE MANAGEMENT DISCHARGE SUMMARY PATIENT: MARYLOU SOFIA UNIT: [id number] ADM DATE: 10/24/19 AGE: 64 : 53 SEX: F ROOM/BED: D.9943 AUTHOR: GOMEZ SHERIFF PHYSICIAN: REFERRING PHYSICIAN: PAYAL CALVERT DO DATE OF SERVICE: 11/05/19 Discharge Plan Patient Name: MARYLOU SOFIA Facility: [facility]:[place] : 1955 Planned Disposition: Home Anticipated Discharge Date: Discharge Date: Expected LOS: Initial Reviewer: [email or web address] Initial Review Date: 10/24/2019 Generated: 11/05/19 11:17 am Comments DCP- Discharge Planning Updated by [email or web address]: Kemi Maldonado on 11/05/19 9:[address] CM met with pt Tim about hospice services per request. Tim states he wants to take his home to be with family. Verbal permission received to call [facility]. CM called [facility] at [phone] and spoke to the answering service. Hospice will send a nurse for evaluation, and admit to home. CM will continue assisting as needed for discharge planning/needs. Kemi Maldonado MSN,RN,CM DCP- Discharge Planning Updated by [email or web address]: Doug Porter on 11/02/19 1:[address] Patient Name: MARYLOU SOFIA Admission Status: Elective Accout number: [id number] Admission Date: 10-24-2019 : 1955 Admission Diagnosis:CHEST PAIN, UNSPECIFIED Attending: PAYAL CALVERT Current LOS: 9 Anticipated DC Date: Planned Disposition: Home Primary Insurance: MEDICARE A & B Discharge Planning Comments: CM met with patient to complete initial dc planning assessment. CM educated patient on the CM role and verbal consent given by patient to complete assessment. CM verified patient's address, phone number, and emergency contact phone numbers. Patient lives at home with spouse, Tim Pillai, . At discharge patient plans to return home and feels this is a safe discharge. Spouse states that he works from home and she is never home alone. CM discussed availability of home health, rehab services, and medical equipment. Patient declines inpatient rehab and chcf at this time. Patient and spouse are considering home health services with a previous service, [facility] home health. Spouse assists with toileting, ambulation, medication management, and bathing. Transportation provider at discharge will be with her spouse. CM will continue to follow and will assist as needed with dc plans/needs. Auriculotherapist: Doug Porter DCPIA - Discharge Planning Initial Assessment Updated by [email or web address]: Doug Porter on 11/02/19 2:20 pm * Is the patient Alert and Oriented? Yes * How many steps to enter\exit or inside your home? 0/0 * PCP Dr. Burger/ Monica DOMINGUEZ * Pharmacy [facility] on [address] ([place] by the [address]) * Preadmission Environment Home with Family * ADLs Partial Dependent * Partial ADLs (Assistance needed) Ambulation Bathing Medication Management Toileting * Equipment Cane Shower Chair Walker * List name and contact numbers for known caregivers / representatives who currently or will assist patient after discharge: Son- Ajit Sofia ([phone] in [place]) Spouse - Tim Sofia ([phone]) * Verbal permission to speak to the caregivers and representatives has been obtained from the patient. Yes * Community resources currently utilized None * Additional services required to return to the preadmission environment? No * Can the patient safely return to the preadmission environment? Yes * Has this patient been hospitalized within the prior 30 days at any hospital? No Coverage Notice Reviewer: [id number] - Doug Porter Notice Issued Date-Time: 11/02/2019 14:24 Notice Type: Patient Choice Letter Notice Delivered To: Family Member Relationship to Patient: Spouse Sales Expert Home Theater Name: Tim Sofia Delivery Method: HAND - Hand Delivered Elizabeth Days: Prior Verbal Notification: Recipient Understood Notice: Yes Recipient Signature: Yes Med Rec Note Co-signed by Attending: Coverage Notice Comment: JOVITA for [facility] HH Last DP export: 11/05/19 8:14 am Patient Name: MARYLOU SOFIA Page [id number] at 1017 All edits/amendments must be made on the electronic document DICTATION DATE: 11/05/19 1017 BAND AND CUFF CUTTER: BIENVENIDO 11/05/19 1017 RPT#: [id number] DC DATE: STATUS: ADM IN [facility] [address] [facility] [place] [address] END OF REPORT
--- NOTE | 2019-11-05 12:30 | NUR ---
HOSPICE HERE FOR EVAL. FOR ADMISSION AT HOME. PERCARE DONE FOR INCONT. EPISODE. NO DYSPNEA OR COMPLAINTS OF PAIN AT THIS TIME. TELEMTRY INTACT.
--- NOTE | 2019-11-05 17:00 | NUR ---
[facility] NOTIFIED OF NEED FOR TRANSPORT. PATIENT AND VERBALIZED UNDERSTANDING OF DISCHARGE INSTRUCTIONS.
--- NOTE | 2019-11-05 19:03 | NUR ---
[facility] FOR TRANSPORT WITH [facility] AT THIS TIME. [facility] NOTIFIED WELL.
--- NOTE | 2019-11-08 15:58 | MORECARE ---
CASE MANAGEMENT DISCHARGE SUMMARY PATIENT: MARYLOU SOFIA UNIT: [id number] ADM DATE: 10/24/19 AGE: 64 : 53 SEX: F ROOM/BED: D.1443 AUTHOR: GOMEZ SHERIFF PHYSICIAN: REFERRING PHYSICIAN: PAYAL CALVERT DO DATE OF SERVICE: 11/08/19 Discharge Plan Patient Name: MARYLOU SOFIA Facility: [facility]:[place] : 1955 Planned Disposition: Home Anticipated Discharge Date: Discharge Date: 11/05/2019 Expected LOS: Initial Reviewer: [email or web address] Initial Review Date: 10/24/2019 Generated: 11/08/19 4:57 pm Comments DCP- Discharge Planning Updated by [email or web address]: Kemi Maldonado on 11/05/19 9:[address] CM met with pt Tim about hospice services per request. Tim states he wants to take his home to be with family. Verbal permission received to call [facility]. CM called [facility] at [phone] and spoke to the answering service. Hospice will send a nurse for evaluation, and admit to home. CM will continue assisting as needed for discharge planning/needs. Kemi Maldonado MSN,RN,CM DCP- Discharge Planning Updated by [email or web address]: Doug Porter on 11/02/19 1:[address] Patient Name: MARYLOU SOFIA Admission Status: Elective Accout number: [id number] Admission Date: 10-24-2019 : 1955 Admission Diagnosis:CHEST PAIN, UNSPECIFIED Attending: PAYAL CALVERT Current LOS: 9 Anticipated DC Date: Planned Disposition: Home Primary Insurance: MEDICARE A & B Discharge Planning Comments: CM met with patient to complete initial dc planning assessment. CM educated patient on the CM role and verbal consent given by patient to complete assessment. CM verified patient's address, phone number, and emergency contact phone numbers. Patient lives at home with spouse, Tim Pillai, . At discharge patient plans to return home and feels this is a safe discharge. Spouse states that he works from home and she is never home alone. CM discussed availability of home health, rehab services, and medical equipment. Patient declines inpatient rehab and custodial at this time. Patient and spouse are considering home health services with a previous service, [facility] health. Spouse assists with toileting, ambulation, medication management, and bathing. Transportation provider at discharge will be with her spouse. CM will continue to follow and will assist as needed with dc plans/needs. Manufacturing Engineering Technologist: Doug Porter DCPIA - Discharge Planning Initial Assessment Updated by [email or web address]: Doug Porter on 11/02/19 2:20 pm * Is the patient Alert and Oriented? Yes * How many steps to enter\exit or inside your home? 0/0 * PCP Dr. Burger/ Monica DOMINGUEZ * Pharmacy [facility] on [address] ([place] by the [address]) * Preadmission Environment Home with Family * ADLs Partial Dependent * Partial ADLs (Assistance needed) Ambulation Bathing Medication Management Toileting * Equipment Cane Shower Chair Walker * List name and contact numbers for known caregivers / representatives who currently or will assist patient after discharge: Son- Ajit Sofia ([phone] in [place]) Spouse - Tim Sofia ([phone]) * Verbal permission to speak to the caregivers and representatives has been obtained from the patient. Yes * Community resources currently utilized None * Additional services required to return to the preadmission environment? No * Can the patient safely return to the preadmission environment? Yes * Has this patient been hospitalized within the prior 30 days at any hospital? No Coverage Notice Reviewer: [id number] - Doug Porter Notice Issued Date-Time: 11/02/2019 14:24 Notice Type: Patient Choice Letter Notice Delivered To: Family Member Relationship to Patient: Spouse Vehicle Delivery Worker Name: Tim Sofia Delivery Method: HAND - Hand Delivered Elizabeth Days: Prior Verbal Notification: Recipient Understood Notice: Yes Recipient Signature: Yes Med Rec Note Co-signed by Attending: Coverage Notice Comment: JOVITA for [facility] Last DP export: 11/05/19 9:17 am Patient Name: MARYLOU SOFIA Page [id number] at 1558 All edits/amendments must be made on the electronic document DICTATION DATE: 11/08/19 8757 PATIENTS TRANSPORTER: BIENVENIDO 11/08/19 1558 RPT#: [id number] DC DATE:11/05/19 STATUS: DIS IN [facility] [address] [place] [address] END OF REPORT
[2019-11-18 12:17] VITALS: Ht 154.9 cm; Wt 80.7 kg
== END 2019-11-05 19:05 | disposition home health service (06) | DRG 280 ==
LOC: D.M2 17:32
PROVIDERS: Family Medicine; General Practice; Internal Medicine Interventional Cardiology; Internal Medicine Nephrology; Internal Medicine Pulmonary Disease; ADMIT Family Medicine; ATTEND Family Medicine
PROC: 4A023N7 Measurement of Cardiac Sampling and Pressure, Left Heart, Percutaneous Approach (ICD-10-PCS; 2019-10-26)
PROC: B2111ZZ Fluoroscopy of Multiple Coronary Arteries using Low Osmolar Contrast (ICD-10-PCS; principal; 2019-10-26 10:00)
PROC: B2151ZZ Fluoroscopy of Left Heart using Low Osmolar Contrast (ICD-10-PCS; 2019-10-26 10:00)
PROC: 0W993ZZ Drainage of Right Pleural Cavity, Percutaneous Approach (ICD-10-PCS; 2019-10-31)
DX: I11.0 Hypertensive heart disease with heart failure (principal); I21.A1 Myocardial infarction type 2; N17.0 Acute kidney failure with tubular necrosis; J18.9 Pneumonia, unspecified organism; E43 Unspecified severe protein-calorie malnutrition; E87.1 Hypo-osmolality and hyponatremia; I50.20 Unspecified systolic (congestive) heart failure; K74.60 Unspecified cirrhosis of liver; E78.5 Hyperlipidemia, unspecified; E03.9 Hypothyroidism, unspecified; M81.0 Age-related osteoporosis without current pathological fracture; K74.3 Primary biliary cirrhosis; R00.0 Tachycardia, unspecified; R00.1 Bradycardia, unspecified; R40.2134 Coma scale, eyes open, to sound, 24 hours or more after hospital admission; R40.2354 Coma scale, best motor response, localizes pain, 24 hours or more after hospital admission; R40.2244 Coma scale, best verbal response, confused conversation, 24 hours or more after hospital admission; Z86.73 Personal history of transient ischemic attack (TIA), and cerebral infarction without residual deficits; Z68.32 Body mass index [BMI] 32.0-32.9, adult